=== PATIENT | female | born 1940 | race Caucasian/White ===

== ENCOUNTER 2020-11-29 17:18 | Inpatient (IN) | payer MEDICARE, MEDICAID ==
[~2020-11-29] VITALS: Ht 160 cm; Wt 87.6 kg
[2020-11-29 17:30] VITALS: BP 173/89
[2020-11-29] MEDS ORDERED: MAG HYDROX/AL HYDROX/SIMETH 30 ML ORAL.SUSP PO PRN (18:00)
[2020-11-29] MEDS ORDERED: MAGNESIUM HYDROXIDE 2,400 MG/30 ML ORAL.SUSP. PO PRN (18:00)
[2020-11-29] MEDS ORDERED: ACETAMINOPHEN 325 MG TABLET PO PRN (18:00)
[2020-11-29] MEDS ORDERED: METHYL SALICYLATE/MENTHOL TOPICAL OINTMENT 57GM TUBE. TP PRN (18:00)
[2020-11-29] MEDS ORDERED: BISA10SU4 RC (18:03)
[2020-11-29] MEDS ORDERED: CHOL500021 PO (18:03)
[2020-11-29] MEDS ORDERED: MELA10TA PO (18:03)
[2020-11-29] MEDS ORDERED: DONE10TA7 PO (18:03)
[2020-11-29] MEDS ORDERED: MEMA10TA PO (18:03)
[2020-11-29] MEDS ORDERED: MULT-121 PO (18:03)
[2020-11-29] MEDS ORDERED: LORA-254 PO (18:03)
[2020-11-29] MEDS ORDERED: ESCITALOPRAM OX10 MG PO (18:03)
[2020-11-29] MEDS ORDERED: POLY17PO5 PO (18:03)
[2020-11-29] MEDS ORDERED: FURO20TA3 PO (18:03)
[2020-11-29] MEDS ORDERED: BUSP10TA PO (18:03)
[2020-11-29] MEDS ORDERED: NA P133E2 RC (18:03)
[2020-11-29] MEDS ORDERED: POLYETHYLENE GLYCOL 3350 17 GM PACKET. PO PRN (18:15)
[2020-11-29] MEDS ORDERED: SODIUM PHOSPHATES 19/7GM 133 ML ENEMA. RC PRN (18:15)
[2020-11-29] MEDS ORDERED: BISACODYL 10 MG SUPP.RECT RC PRN (18:15)
[2020-11-29] MEDS: MEMANTINE 10 MG TABLET. PO SCH (20:20)
[2020-11-29] MEDS: MELATONIN 3 MG TABLET PO SCH (20:20)
[2020-11-29] MEDS: DONEPEZIL HCL 10 MG TABLET PO SCH (20:21)
[2020-11-29] MEDS: busPIRone 10 MG TABLET. PO SCH (20:21)
[2020-11-29] MEDS: LORazepam 1 MG TABLET PO SCH (20:21)
[2020-11-29 20:49] LABS: BASO % 1 % (0-3); EOS # 0.1 x10^3/uL (0.0-0.7); EOS % 2 % (0-3); HEMATOCRIT 32.9 % (36.0-47.0); LYMPH % 14 % (24-48); MEAN CORPUSCULAR HEMOGLOBIN 28 pg (25-35); MEAN CORPUSCULAR HGB CONC 33 g/dL (31-37); MEAN CORPUSCULAR VOLUME 83 fL (79-100); MONO # 0.7 x10^3/uL (0.0-1.1); MONO % 9 % (0-9); NEUT # 5.7 x10^3uL (1.8-7.7); NEUT % 75 % (31-73); PLATELET COUNT 207 x10^3/uL (140-400); RED BLOOD COUNT 3.98 x10^6/uL (3.50-5.40); RED CELL DISTRIBUTION WIDTH 17.3 % (11.5-14.5); WHITE BLOOD COUNT 7.6 x10^3/uL (4.0-11.0)
[2020-11-29 21:04] LABS: ALBUMIN/GLOBULIN RATIO 0.8 (1.0-1.7); CALCIUM 8.8 mg/dL (8.5-10.1); CREATININE 1.1 mg/dL (0.6-1.0); GFR 47.7; MAGNESIUM 1.9 mg/dL (1.8-2.4); POTASSIUM 3.5 mmol/L (3.5-5.1); TOTAL BILIRUBIN 0.4 mg/dL (0.2-1.0)
--- NOTE | 2020-11-29 21:58 | PDOC ---
Exam Note: Aki Note: Please also refer to the separate dictated note~for this date of service dictated separately.~Patient seen individually. Discussed the patient with Nursing staff reviewed the chart.~Reviewed interim history and current functioning. Reviewed vital signs,~Labs/ Radiology~and current medications noted below. Continue current treatment with the changes noted in the dictated addendum note Assessment: Vital Signs/I&O: Vital Signs Date Time Temp Pulse Resp B/P (MAP) Pulse Ox O2 Delivery O2 Flow Rate FiO2 11/29/20 17:30 97.6 76 20 173/89 (117) 96 Nasal Cannula 0.0 Labs: Laboratory Tests Test 11/29/20 20:23 White Blood Count 7.6 x10^3/uL (4.0-11.0) Red Blood Count 3.98 x10^6/uL (3.50-5.40) Hemoglobin 11.0 g/dL (12.0-15.5) L Hematocrit 32.9 % (36.0-47.0) L Mean Corpuscular Volume 83 fL (79-100) Mean Corpuscular Hemoglobin 28 pg (25-35) Mean Corpuscular Hemoglobin Concent 33 g/dL (31-37) Red Cell Distribution Width 17.3 % (11.5-14.5) H Platelet Count 207 x10^3/uL (140-400) Neutrophils (%) (Auto) 75 % (31-73) H Lymphocytes (%) (Auto) 14 % (24-48) L Monocytes (%) (Auto) 9 % (0-9) Eosinophils (%) (Auto) 2 % (0-3) Basophils (%) (Auto) 1 % (0-3) Neutrophils # (Auto) 5.7 x10^3uL (1.8-7.7) Lymphocytes # (Auto) 1.0 x10^3/uL (1.0-4.8) Monocytes # (Auto) 0.7 x10^3/uL (0.0-1.1) Eosinophils # (Auto) 0.1 x10^3/uL (0.0-0.7) Basophils # (Auto) 0.0 x10^3/uL (0.0-0.2) D-Dimer (Pooja) 0.56 mg/L (0.00-0.50) H Sodium Level 138 mmol/L (136-145) Potassium Level 3.5 mmol/L (3.5-5.1) Chloride Level 101 mmol/L (98-107) Carbon Dioxide Level 28 mmol/L (21-32) Anion Gap 9 (6-14) Blood Urea Nitrogen 21 mg/dL (7-20) H Creatinine 1.1 mg/dL (0.6-1.0) H Estimated GFR (Cockcroft-Gault) 47.7 BUN/Creatinine Ratio 19 (6-20) Glucose Level 194 mg/dL (70-99) H Calcium Level 8.8 mg/dL (8.5-10.1) Magnesium Level 1.9 mg/dL (1.8-2.4) Total Bilirubin 0.4 mg/dL (0.2-1.0) Aspartate Amino Transferase (AST) 13 U/L (15-37) L Alanine Aminotransferase (ALT) 15 U/L (14-59) Alkaline Phosphatase 66 U/L (46-116) Total Protein 7.0 g/dL (6.4-8.2) Albumin 3.0 g/dL (3.4-5.0) L Albumin/Globulin Ratio 0.8 (1.0-1.7) L Current Medications: Meds: Current Medications Medications (Trade) Dose Ordered Sig/Curt Route PRN Reason Start Time Stop Time Status Last Admin Dose Admin Buspirone HCl (Buspar) 10 mg TID PO 11/29/20 21:00 11/29/20 20:21 Donepezil HCl (Aricept) 10 mg QHS PO 11/29/20 21:00 11/29/20 20:21 Lorazepam (Ativan) 0.5 mg BID PO 11/29/20 21:00 11/29/20 20:21 Memantine (Namenda) 10 mg BID PO 11/29/20 21:00 11/29/20 20:20 Melatonin (Melatonin) 10.5 mg QHS PO 11/29/20 21:00 11/29/20 20:20 I have reviewed the current psychotropics carefully including drug interactions. Risk benefit ratio favors no change other than as noted in my dictated progress note. Diagnosis: Problems: (1) Major neurocognitive disorder (2) Anxiety disorder, unspecified (3) Impulse control disorder, unspecified MADHURI SHAW MD Nov 29, 2020 21:58
[2020-11-30 06:00] VITALS: BP 152/90
[2020-11-30] MEDS: busPIRone 10 MG TABLET. PO SCH ×3 (09:00→20:21)
[2020-11-30] MEDS ORDERED: CITALOPRAM 20 MG TABLET. PO SCH (09:00)
[2020-11-30] MEDS: LORazepam 1 MG TABLET PO SCH ×2 (12:33→20:22)
[2020-11-30] MEDS: MEMANTINE 10 MG TABLET. PO SCH ×2 (12:33→20:21)
[2020-11-30] MEDS: FUROSEMIDE 20 MG TABLET PO SCH (12:33)
[2020-11-30] MEDS: MULTIVITAMIN with MINERAL TABLET. PO SCH (12:33)
--- NOTE | 2020-11-30 14:05 | TX PLAN ---
Interdisciplinary Tx Plan Admission Information Nov 29, 2020 at 17:18 Legal Status (on Admission): Voluntary DPOA/Guardian Name: Lucero Marks-Cousin Contact Phone Number: (Cell-DO NOT LEAVE MESSAGE ON CELL) [phone] (Home- CAN LEAVE MESSAGE O Other Contact Name: Priya Melgar Other Contact Phone: (Cell) [phone] (Office)[phone] Verified Code Status: DNR Allergies: Coded Allergies: No Known Drug Allergies (Unverified , 11/29/20) Diagnoses Primary Diagnosis: (1) Major neurocognitive disorder (2) Anxiety disorder, unspecified (3) Impulse control disorder, unspecified Reasons for Admission: Aggressive, Agitated, Angry, Combative, Confusion/Disoriented Problem in Patient's Words: Per Lucero, pt has been angry and aggressive toward staff at her facility. Lucero reports that about 8 to 9 months ago, pt was living with a female friend, Janessa, whom she lived with for a long time. Janessa called her and reported that Sharon was able to care for herself any longer and she was mean and aggressive toward her. Lucero stated that she had never known Sharon to mean towards others, but is wondering if she has some anger that is just part of her personality, but that it was hidden well when she was younger. Additional Admission Comments: Per intake record, pt was threatening to punch staff, combative with staff, yelling out, resists care, disrobing in public, cursing, spitting at staff, and name calling. Problems Active Problems: Agitation, aggressive, confusion, angry Inactive Problems: None at this time. Pt Strengths/Limitations Ability for [place]: Poor Cognitive Functioning/Ability: Fair Communication Skills/Ability: Fair Financial Resources: Fair Insight/Judgement: Poor Intellectual Ability: Fair Physical Health: Fair Social Skills: Fair Stability in Family: Good Stability in School/Work: Good Verbal Skills: Fair Discharge Criteria Discharge Criteria: No need for close observ., Adequate arrangements @DC, Verbal commit med comply, Improved behavior, Improved mood/thought Other Discharge Comments: None noted at this time. Preliminary Discharge Plan Preliminary DC Plan: Current Living Arrange. Special Precautions Fall Risk: High Initial D/C Plan Pt plan is to return to [facility]. Identified Discharge Needs: None known at this time. Currently Utilized Resources Currently Utilized Resources/P: PCP-Dr. Thai Velazco/NANCY-Lucero Marks Facility-[facility] Referrals Community Resources: None noted at this time. Identified Problems/Hx/Goals Objectives/Short-Term Goals Short Term Goals: Control abnormal behavior, Dec. Aggression, Dec. Outbursts, Medication Stabilization, Monitor Med Effects, Promote Coping Skill Short Term Goals in Patient's: Pt to decrease aggressive/combative behaviors and be more cooperative with taking her medications and cares at her facility. Interventions/Frequency Staff Interventions/Frequency&: Psychiatry to assess pt three times per week for medication management. Nursing to assess behaivors, monitor medications, and complete 15 minute checks daily. Social work to see pt at least two times weekly to aid in return to placement. Activities to encourage pt to participate in group activities daily. 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 Education: Pt completed high school and attended all four years graduating from [employer]. Community Follow-up PCP Community Provider/Family Inpu: Pt cousin/NANCY, Lucero Marks, is aware of pt's hospitalization and is available for further information should it be needed. Treatment Plan Explained Patient/Family Coach had this treatment plan explained to him/her as indicated by the signature below and has been given the opportunity to ask questions and make suggestions: Date: Patient/Family Coach Signature: BRITTANIE BEVERLY Nov 30, 2020 14:05
[2020-11-30 17:56] VITALS: BP 142/84
[2020-11-30 20:07] LABS: THYROXINE 6.5 ug/dL (4.5-12.0)
[2020-11-30] MEDS: DONEPEZIL HCL 10 MG TABLET PO SCH (20:21)
[2020-11-30] MEDS: MELATONIN 3 MG TABLET PO SCH (20:22)
--- NOTE | 2020-11-30 22:00 | PDOC ---
Exam Note: Aki Note: Please also refer to the separate dictated note~for this date of service dictated separately.~Patient seen individually. Discussed the patient with Nursing staff reviewed the chart.~Reviewed interim history and current functioning. Reviewed vital signs,~Labs/ Radiology~and current medications noted below. Continue current treatment with the changes noted in the dictated addendum note Assessment: Vital Signs/I&O: Vital Signs Date Time Temp Pulse Resp B/P (MAP) Pulse Ox O2 Delivery O2 Flow Rate FiO2 11/30/20 17:56 98.2 66 18 142/84 (103) 94 11/29/20 17:30 Nasal Cannula 0.0 I & O 11/29/20 11/29/20 11/30/20 15:00 23:00 07:00 Intake Total 240 ml 120 ml Balance 240 ml 120 ml Labs: Laboratory Tests Test 11/30/20 08:00 Glucose (Fingerstick) 168 mg/dL (70-99) H Current Medications: Meds: Current Medications Medications (Trade) Dose Ordered Sig/Curt Route PRN Reason Start Time Stop Time Status Last Admin Dose Admin Furosemide (Lasix) 20 mg DAILY PO 11/30/20 09:00 11/30/20 12:33 Citalopram Hydrobromide (CeleXA) 20 mg DAILY PO 11/30/20 09:00 11/30/20 12:32 Multivitamins/ Calcium (Thera-M Plus) 1 tab DAILY PO 11/30/20 09:00 11/30/20 12:33 I have reviewed the current psychotropics carefully including drug interactions. Risk benefit ratio favors no change other than as noted in my dictated progress note. Diagnosis: Problems: (1) Impulse control disorder, unspecified (2) Anxiety disorder, unspecified (3) Major neurocognitive disorder MADHURI SHAW MD Nov 30, 2020 22:00
[2020-11-30 22:22] LABS: THYROID STIM HORMONE (TSH) 2.073 uIU/mL (0.358-3.740)
[2020-12-01 00:07] LABS: HEMOGLOBIN A1C 7.3 % (4.8-5.6)
--- NOTE | 2020-12-01 02:45 | CONS ---
DATE OF CONSULTATION: 11/30/2020 ATTENDING PHYSICIAN: Dr. Black. We are asked to see the patient for medical consultation. HISTORY OF PRESENT ILLNESS: The patient is an 80-year-old female from a [facility], [place], [place]. She has been threatening to punish staff, very combative, yelling out, resisting care, disrobe in public, spitting at staff and be having behavioral issues. She has profound dementia. She was referred here for further treatment and evaluation. PAST MEDICAL HISTORY: Significant for dementia, type 2 diabetes, vitamin B12 deficiency and degenerative arthritis. ALLERGIES: She has no recorded drug allergies. CURRENT MEDICATIONS: Reviewed. She was scheduled to take bisacodyl, BuSpar, cholecalciferol, Aricept, Lexapro, Lasix 20 mg daily, lorazepam, melatonin, Namenda, multivitamin, and MiraLax. SOCIAL HISTORY: She is a nonsmoker, nondrinker. FAMILY HISTORY: Unobtainable. REVIEW OF SYSTEMS: Unobtainable. She is profoundly hard of hearing. Much of the information is obtained from the chart. PHYSICAL EXAMINATION: GENERAL: When I saw her, this is a deaf, demented female. VITAL SIGNS: Showed a blood pressure 152/90, pulse is 71 and regular, temperature 97.6 degrees Fahrenheit, and oxygen saturation 96% on room air. HEENT: Head is without trauma. Pupils are reactive. Sclerae nonicteric. Oropharynx clear. No stridor. NECK: Supple. No bruits. LUNGS: Shallow respirations. CARDIOVASCULAR: Showed distant heart tones. No gallops. ABDOMEN: Soft. There is a palpable ventral hernia, does not appear incarcerated. Bowel sounds are normoactive. EXTREMITIES: Showed 2+ nonpitting edema. NEUROLOGIC: Profoundly demented. She cannot understand any commands. We could not do a formal full neurologic exam due to the patient's dementia. SKIN: Otherwise, warm and dry. PERTINENT LABORATORY DATA: Hemoglobin is 11.0 g/dL with a white count of 7600. Electrolytes within normal range. Creatinine is 1.1 mg/dL. Nonfasting blood sugar 168. Liver panel, transaminases are all within normal range. ASSESSMENT: 1. This 80-year-old female who has profound dementia with behavioral issues. 2. Essential hypertension. 3. Type 2 diabetes. 4. Degenerative arthritis. RECOMMENDATION: 1. I reviewed the patient's medication. 2. She is stable from a medical standpoint. 3. Diabetic diet as tolerated. 4. We would recommend that we continue all her meds as scheduled. Thank you again for asking us to see the patient in medical consultation. We shall gladly follow along closely during her inpatient stay. MY DR: Ruddy TID: [id number]
[2020-12-01 06:04] VITALS: BP 150/95
[2020-12-01] MEDS: NYSTATIN TOPICAL POWDER 15GM BOTTLE. TP SCH ×2 (09:00→20:57)
[2020-12-01] MEDS: MEMANTINE 10 MG TABLET. PO SCH ×2 (11:00→20:57)
[2020-12-01] MEDS: MULTIVITAMIN with MINERAL TABLET. PO SCH (11:00)
[2020-12-01] MEDS: SERTRALINE 25 MG TABLET. PO SCH (11:00)
[2020-12-01] MEDS: busPIRone 10 MG TABLET. PO SCH ×3 (11:00→20:56)
[2020-12-01] MEDS: FUROSEMIDE 20 MG TABLET PO SCH (11:01)
[2020-12-01] MEDS: QUEtiapine 25 MG TABLET. PO SCH ×3 (11:01→16:10)
[2020-12-01] MEDS: LORazepam 0.5 MG TABLET PO SCH ×2 (11:02→20:57)
[2020-12-01 15:47] LABS: BILIRUBIN,URINE NEG (NEG); CLARITY,URINE CLOUDY; COLOR,URINE YELLOW; GLUCOSE,URINE NEG (NEG)
[2020-12-01 15:48] LABS: NITRITE,URINE NEG (NEG); UROBILINOGEN,URINE 0.2 mg/dL (0.2 mg/dL)
[2020-12-01 15:51] LABS: BACTERIA,URINE FEW /HPF (0-FEW); RBC,URINE OCC /HPF (0-2); SQUAMOUS EPITHELIAL CELL,UR FEW /LPF; WBC,URINE TNTC /HPF (0-4)
[2020-12-01 15:53] VITALS: BP 149/68
[2020-12-01] MEDS: DONEPEZIL HCL 10 MG TABLET PO SCH (20:56)
[2020-12-01] MEDS: MELATONIN 3 MG TABLET PO SCH (20:56)
--- NOTE | 2020-12-01 22:15 | PDOC ---
Exam Note: Aki Note: Please also refer to the separate dictated note~for this date of service dictated separately.~Patient seen individually. Discussed the patient with Nursing staff reviewed the chart.~Reviewed interim history and current functioning. Reviewed vital signs,~Labs/ Radiology~and current medications noted below. Continue current treatment with the changes noted in the dictated addendum note Assessment: Vital Signs/I&O: Vital Signs Date Time Temp Pulse Resp B/P (MAP) Pulse Ox O2 Delivery O2 Flow Rate FiO2 12/01/20 15:53 97.8 73 18 149/68 (95) 95 Room Air 11/29/20 17:30 0.0 I & O 11/30/20 11/30/20 12/01/20 15:00 23:00 07:00 Intake Total 360 ml 100 ml Balance 360 ml 100 ml Labs: Laboratory Tests Test 12/01/20 07:55 12/01/20 15:10 Glucose (Fingerstick) 203 mg/dL (70-99) H Urine Collection Type Void Urine Color Yellow Urine Clarity Cloudy Urine pH 6.5 Urine Specific [place] >=1.030 Urine Protein Trace (NEG-TRACE) Urine Glucose (UA) Neg mg/dL (NEG) Urine Ketones (Stick) Neg mg/dL (NEG) Urine Blood Trace (NEG) Urine Nitrite Neg (NEG) Urine Bilirubin Neg (NEG) Urine Urobilinogen Dipstick 0.2 mg/dL (0.2 mg/dL) Urine Leukocyte Esterase Large (NEG) Urine RBC Occ /HPF (0-2) Urine WBC Tntc /HPF (0-4) Urine Squamous Epithelial Cells Few /LPF Urine Bacteria Few /HPF (0-FEW) Current Medications: Meds: Laboratory Tests Test 12/01/20 07:55 12/01/20 15:10 Glucose (Fingerstick) 203 mg/dL Urine Collection Type Void Urine Color Yellow Urine Clarity Cloudy Urine pH 6.5 Urine Specific [place] >=1.030 Urine Protein Trace Urine Glucose (UA) Neg mg/dL Urine Ketones (Stick) Neg mg/dL Urine Blood Trace Urine Nitrite Neg Urine Bilirubin Neg Urine Urobilinogen Dipstick 0.2 mg/dL Urine Leukocyte Esterase Large Urine RBC Occ /HPF Urine WBC Tntc /HPF Urine Squamous Epithelial Cells Few /LPF Urine Bacteria Few /HPF Current Medications Medications (Trade) Dose Ordered Sig/Curt Route PRN Reason Start Time Stop Time Status Last Admin Dose Admin Acetaminophen (Tylenol) 650 mg PRN Q6HRS PRN PO MILD PAIN / TEMP > 100.3'F 11/29/20 18:00 Multi-Ingredient Ointment (Analgesic [place]) 1 bryant PRN QID PRN TP MUSCLE PAIN 11/29/20 18:00 Al Hydroxide/Mg Hydroxide (Mylanta Plus Xs) 15 ml PRN AFTMEALHC PRN PO DYSPEPSIA 11/29/20 18:00 Magnesium Hydroxide (Milk Of Magnesia) 2,400 mg PRN QHS PRN PO CONSTIPATION 11/29/20 18:00 Bisacodyl (Dulcolax Supp) 10 mg PRN DAILY PRN RC CONSTIPATION 11/29/20 18:15 Buspirone HCl (Buspar) 10 mg TID PO 11/29/20 21:00 12/01/20 20:56 Vitamin D (Vitamin D3) 50,000 unit QWE PO 12/06/20 16:00 Donepezil HCl (Aricept) 10 mg QHS PO 11/29/20 21:00 12/01/20 20:56 Furosemide (Lasix) 20 mg DAILY PO 11/30/20 09:00 12/01/20 11:01 Lorazepam (Ativan) 0.5 mg BID PO 11/29/20 21:00 11/30/20 22:44 DC 11/30/20 20:22 Memantine (Namenda) 10 mg BID PO 11/29/20 21:00 12/01/20 20:57 Sodium Biphosphate/ Sodium Phosphate (Fleet Adult) 133 ml PRN DAILY PRN RC CONSTIPATION 11/29/20 18:15 Polyethylene Glycol (miraLAX) 17 gm PRN DAILY PRN PO CONSTIPATION 11/29/20 18:15 Citalopram Hydrobromide (CeleXA) 20 mg DAILY PO 11/30/20 09:00 11/30/20 22:44 DC 11/30/20 12:32 Melatonin (Melatonin) 10.5 mg QHS PO 11/29/20 21:00 12/01/20 20:56 Multivitamins/ Calcium (Thera-M Plus) 1 tab DAILY PO 11/30/20 09:00 12/01/20 11:00 Lorazepam (Ativan) 0.25 mg BID PO 12/01/20 09:00 12/03/20 22:00 12/01/20 20:57 Quetiapine Fumarate (SEROquel) 12.5 mg TIDWMEALS PO 12/01/20 08:00 12/01/20 16:10 Sertraline HCl (Zoloft) 25 mg DAILY PO 12/01/20 09:00 12/03/20 21:00 12/01/20 11:00 Sertraline HCl (Zoloft) 50 mg DAILY PO 12/04/20 09:00 Lorazepam (Ativan) 0.25 mg DAILY PO 12/04/20 09:00 12/06/20 21:00 Nystatin (Nystop) 1 bryant BID TP 12/01/20 09:00 12/01/20 20:57 Current Medications Medications (Trade) Dose Ordered Sig/Curt Route PRN Reason Start Time Stop Time Status Last Admin Dose Admin Lorazepam (Ativan) 0.25 mg BID PO 12/01/20 09:00 12/03/20 22:00 12/01/20 20:57 Quetiapine Fumarate (SEROquel) 12.5 mg TIDWMEALS PO 12/01/20 08:00 12/01/20 16:10 Sertraline HCl (Zoloft) 25 mg DAILY PO 12/01/20 09:00 12/03/20 21:00 12/01/20 11:00 Nystatin (Nystop) 1 bryant BID TP 12/01/20 09:00 12/01/20 20:57 I have reviewed the current psychotropics carefully including drug interactions. Risk benefit ratio favors no change other than as noted in my dictated progress note. Diagnosis: Problems: (1) Impulse control disorder, unspecified (2) Anxiety disorder, unspecified (3) Major neurocognitive disorder MADHURI SHAW MD Dec 01, 2020 22:15
[2020-12-02 06:31] VITALS: BP 150/86
--- NOTE | 2020-12-02 08:11 | PDOC ---
Exam Note: Aki Note: This note is a late entry for 11/30/2020 covers elements not covered in my initial note. Subjective: The patient was reviewed in the morning of 11/30/2020 for a treatment team meeting with Candie Sinclair, Carmita Nichols and Erika (psychiatric social worker), Tamar, activity therapy and Katya STEWART, discussed and reviewed the chart. The patient slept 7 hours previous night. Overall the patient remains confused but doing a little better. In the evening discussed with Margy STEWART. She has been somewhat more anxious, combative with ADLs. She slept through lunch. Review of Systems: No CV, , pulmonary, eye system symptoms on review. Mental Status Exam: The patient is oriented to herself. When I questioned her she told me she was 60 years old and had to go to work, quite confused. Insight and judgment, recent and remote memory, attention and concentration, fund of knowledge is poor consistent with his diagnoses. Laboratory Data: Reviewed. Impression: Major neurocognitive disorder Alzheimer vascular with delusion, depression, behavioral disturbance. Impulse control disorder unspecified. Anxiety disorder unspecified. Plan: We will taper and stop the Ativan reducing to 0.25 mg twice a day for 3 days and 0.25 mg once a day for 3 days and stop. Start Seroquel 12.5 mg 9 a.m., 1 p.m. and 5 p.m. Change Celexa to Zoloft 25 mg a day for 3 days and 50 mg a day thereafter. Rest unchanged for now. Assessment: Vital Signs/I&O: Vital Signs Date Time Temp Pulse Resp B/P (MAP) Pulse Ox O2 Delivery O2 Flow Rate FiO2 12/02/20 06:31 97.4 68 19 150/86 (107) 95 12/01/20 15:53 Room Air 11/29/20 17:30 0.0 I & O 12/01/20 12/01/20 12/02/20 15:00 23:00 07:00 Intake Total 480 ml 360 ml Balance 480 ml 360 ml Labs: Laboratory Tests Test 12/01/20 15:10 12/02/20 07:33 Urine Collection Type Void Urine Color Yellow Urine Clarity Cloudy Urine pH 6.5 Urine Specific [place] >=1.030 Urine Protein Trace (NEG-TRACE) Urine Glucose (UA) Neg mg/dL (NEG) Urine Ketones (Stick) Neg mg/dL (NEG) Urine Blood Trace (NEG) Urine Nitrite Neg (NEG) Urine Bilirubin Neg (NEG) Urine Urobilinogen Dipstick 0.2 mg/dL (0.2 mg/dL) Urine Leukocyte Esterase Large (NEG) Urine RBC Occ /HPF (0-2) Urine WBC Tntc /HPF (0-4) Urine Squamous Epithelial Cells Few /LPF Urine Bacteria Few /HPF (0-FEW) Glucose (Fingerstick) 158 mg/dL (70-99) H Current Medications: Meds: Laboratory Tests Test 12/01/20 15:10 12/02/20 07:33 Urine Collection Type Void Urine Color Yellow Urine Clarity Cloudy Urine pH 6.5 Urine Specific [place] >=1.030 Urine Protein Trace Urine Glucose (UA) Neg mg/dL Urine Ketones (Stick) Neg mg/dL Urine Blood Trace Urine Nitrite Neg Urine Bilirubin Neg Urine Urobilinogen Dipstick 0.2 mg/dL Urine Leukocyte Esterase Large Urine RBC Occ /HPF Urine WBC Tntc /HPF Urine Squamous Epithelial Cells Few /LPF Urine Bacteria Few /HPF Glucose (Fingerstick) 158 mg/dL Current Medications Medications (Trade) Dose Ordered Sig/Curt Route PRN Reason Start Time Stop Time Status Last Admin Dose Admin Acetaminophen (Tylenol) 650 mg PRN Q6HRS PRN PO MILD PAIN / TEMP > 100.3'F 11/29/20 18:00 Multi-Ingredient Ointment (Analgesic [place]) 1 bryant PRN QID PRN TP MUSCLE PAIN 11/29/20 18:00 Al Hydroxide/Mg Hydroxide (Mylanta Plus Xs) 15 ml PRN AFTMEALHC PRN PO DYSPEPSIA 11/29/20 18:00 Magnesium Hydroxide (Milk Of Magnesia) 2,400 mg PRN QHS PRN PO CONSTIPATION 11/29/20 18:00 Bisacodyl (Dulcolax Supp) 10 mg PRN DAILY PRN RC CONSTIPATION 11/29/20 18:15 Buspirone HCl (Buspar) 10 mg TID PO 11/29/20 21:00 12/01/20 20:56 Vitamin D (Vitamin D3) 50,000 unit QWE PO 12/06/20 16:00 Donepezil HCl (Aricept) 10 mg QHS PO 11/29/20 21:00 12/01/20 20:56 Furosemide (Lasix) 20 mg DAILY PO 11/30/20 09:00 12/01/20 11:01 Lorazepam (Ativan) 0.5 mg BID PO 11/29/20 21:00 11/30/20 22:44 DC 11/30/20 20:22 Memantine (Namenda) 10 mg BID PO 11/29/20 21:00 12/01/20 20:57 Sodium Biphosphate/ Sodium Phosphate (Fleet Adult) 133 ml PRN DAILY PRN RC CONSTIPATION 11/29/20 18:15 Polyethylene Glycol (miraLAX) 17 gm PRN DAILY PRN PO CONSTIPATION 11/29/20 18:15 Citalopram Hydrobromide (CeleXA) 20 mg DAILY PO 11/30/20 09:00 11/30/20 22:44 DC 11/30/20 12:32 Melatonin (Melatonin) 10.5 mg QHS PO 11/29/20 21:00 12/01/20 20:56 Multivitamins/ Calcium (Thera-M Plus) 1 tab DAILY PO 11/30/20 09:00 12/01/20 11:00 Lorazepam (Ativan) 0.25 mg BID PO 12/01/20 09:00 12/03/20 22:00 12/01/20 20:57 Quetiapine Fumarate (SEROquel) 12.5 mg TIDWMEALS PO 12/01/20 08:00 12/01/20 16:10 Sertraline HCl (Zoloft) 25 mg DAILY PO 12/01/20 09:00 12/03/20 21:00 12/01/20 11:00 Sertraline HCl (Zoloft) 50 mg DAILY PO 12/04/20 09:00 Lorazepam (Ativan) 0.25 mg DAILY PO 12/04/20 09:00 12/06/20 21:00 Nystatin (Nystop) 1 bryant BID TP 12/01/20 09:00 12/01/20 20:57 Current Medications Medications (Trade) Dose Ordered Sig/Curt Route PRN Reason Start Time Stop Time Status Last Admin Dose Admin Lorazepam (Ativan) 0.25 mg BID PO 12/01/20 09:00 12/03/20 22:00 12/01/20 20:57 Sertraline HCl (Zoloft) 25 mg DAILY PO 12/01/20 09:00 12/03/20 21:00 12/01/20 11:00 Nystatin (Nystop) 1 bryant BID TP 12/01/20 09:00 12/01/20 20:57 I have reviewed the current psychotropics carefully including drug interactions. Risk benefit ratio favors no change other than as noted in my dictated progress note. 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
[2020-12-02] MEDS: MULTIVITAMIN with MINERAL TABLET. PO SCH (08:12)
[2020-12-02] MEDS: busPIRone 10 MG TABLET. PO SCH ×3 (08:12→19:58)
[2020-12-02] MEDS: QUEtiapine 25 MG TABLET. PO SCH ×2 (08:12→12:48)
[2020-12-02] MEDS: FUROSEMIDE 20 MG TABLET PO SCH (08:13)
[2020-12-02] MEDS: SERTRALINE 25 MG TABLET. PO SCH (08:13)
[2020-12-02] MEDS: MEMANTINE 10 MG TABLET. PO SCH ×2 (08:13→19:58)
[2020-12-02] MEDS: LORazepam 0.5 MG TABLET PO SCH ×2 (08:13→19:58)
[2020-12-02] MEDS: NYSTATIN TOPICAL POWDER 15GM BOTTLE. TP SCH ×2 (08:14→19:59)
[2020-12-02 15:48] VITALS: BP 142/88
[2020-12-02] MEDS: QUEtiapine 50 MG TABLET. PO SCH (17:28)
[2020-12-02] MEDS: MELATONIN 3 MG TABLET PO SCH (19:58)
[2020-12-02] MEDS: DONEPEZIL HCL 10 MG TABLET PO SCH (19:58)
--- NOTE | 2020-12-02 21:52 | PDOC ---
Exam Note: Aki Note: Please also refer to the separate dictated note~for this date of service dictated separately.~Patient seen individually. Discussed the patient with Nursing staff reviewed the chart.~Reviewed interim history and current functioning. Reviewed vital signs,~Labs/ Radiology~and current medications noted below. Continue current treatment with the changes noted in the dictated addendum note Assessment: Vital Signs/I&O: Vital Signs Date Time Temp Pulse Resp B/P (MAP) Pulse Ox O2 Delivery O2 Flow Rate FiO2 12/02/20 15:48 97.6 68 18 142/88 (106) 95 Room Air 11/29/20 17:30 0.0 I & O 12/01/20 12/01/20 12/02/20 15:00 23:00 07:00 Intake Total 480 ml 360 ml Balance 480 ml 360 ml Labs: Laboratory Tests Test 12/02/20 07:33 Glucose (Fingerstick) 158 mg/dL (70-99) H Current Medications: Meds: Laboratory Tests Test 12/02/20 07:33 Glucose (Fingerstick) 158 mg/dL Current Medications Medications (Trade) Dose Ordered Sig/Curt Route PRN Reason Start Time Stop Time Status Last Admin Dose Admin Acetaminophen (Tylenol) 650 mg PRN Q6HRS PRN PO MILD PAIN / TEMP > 100.3'F 11/29/20 18:00 Multi-Ingredient Ointment (Analgesic [place]) 1 bryant PRN QID PRN TP MUSCLE PAIN 11/29/20 18:00 Al Hydroxide/Mg Hydroxide (Mylanta Plus Xs) 15 ml PRN AFTMEALHC PRN PO DYSPEPSIA 11/29/20 18:00 Magnesium Hydroxide (Milk Of Magnesia) 2,400 mg PRN QHS PRN PO 1ST CHOICE CONSTIPATION 11/29/20 18:00 Bisacodyl (Dulcolax Supp) 10 mg PRN DAILY PRN RC 2ND CHOICE CONSTIPATION 11/29/20 18:15 Buspirone HCl (Buspar) 10 mg TID PO 11/29/20 21:00 12/02/20 19:58 Vitamin D (Vitamin D3) 50,000 unit QWE PO 12/06/20 16:00 Donepezil HCl (Aricept) 10 mg QHS PO 11/29/20 21:00 12/02/20 19:58 Furosemide (Lasix) 20 mg DAILY PO 11/30/20 09:00 12/02/20 08:13 Lorazepam (Ativan) 0.5 mg BID PO 11/29/20 21:00 11/30/20 22:44 DC 11/30/20 20:22 Memantine (Namenda) 10 mg BID PO 11/29/20 21:00 12/02/20 19:58 Sodium Biphosphate/ Sodium Phosphate (Fleet Adult) 133 ml PRN DAILY PRN RC 3RD CHOICE CONSTIPATION 11/29/20 18:15 Polyethylene Glycol (miraLAX) 17 gm PRN DAILY PRN PO CONSTIPATION 11/29/20 18:15 Citalopram Hydrobromide (CeleXA) 20 mg DAILY PO 11/30/20 09:00 11/30/20 22:44 DC 11/30/20 12:32 Melatonin (Melatonin) 10.5 mg QHS PO 11/29/20 21:00 12/02/20 19:58 Multivitamins/ Calcium (Thera-M Plus) 1 tab DAILY PO 11/30/20 09:00 12/02/20 08:12 Lorazepam (Ativan) 0.25 mg BID PO 12/01/20 09:00 12/03/20 22:00 12/02/20 19:58 Quetiapine Fumarate (SEROquel) 12.5 mg TIDWMEALS PO 12/01/20 08:00 12/02/20 16:12 DC 12/02/20 12:48 Sertraline HCl (Zoloft) 25 mg DAILY PO 12/01/20 09:00 12/02/20 16:00 DC 12/02/20 08:13 Sertraline HCl (Zoloft) 50 mg DAILY PO 12/04/20 09:00 12/02/20 16:00 DC Lorazepam (Ativan) 0.25 mg DAILY PO 12/04/20 09:00 12/06/20 21:00 Nystatin (Nystop) 1 bryant BID TP 12/01/20 09:00 12/02/20 19:59 Sertraline HCl (Zoloft) 50 mg DAILY PO 12/03/20 09:00 12/02/20 16:10 DC Sertraline HCl (Zoloft) 25 mg DAILY PO 12/03/20 09:00 5/2/21 09:30 Sertraline HCl (Zoloft) 50 mg DAILY PO 12/04/20 09:00 Quetiapine Fumarate (SEROquel) 25 mg 0900,1200 PO 12/03/20 09:00 Quetiapine Fumarate (SEROquel) 50 mg 1700 PO 12/02/20 17:00 12/02/20 17:28 Current Medications Medications (Trade) Dose Ordered Sig/Curt Route PRN Reason Start Time Stop Time Status Last Admin Dose Admin Quetiapine Fumarate (SEROquel) 50 mg 1700 PO 12/02/20 17:00 12/02/20 17:28 I have reviewed the current psychotropics carefully including drug interactions. Risk benefit ratio favors no change other than as noted in my dictated progress note. Diagnosis: Problems: (1) Impulse control disorder, unspecified (2) Anxiety disorder, unspecified (3) Major neurocognitive disorder (4) Dementia, vascular, with depression (5) Dementia, vascular, with delusions (6) Dementia in Alzheimer's disease with depression (7) Dementia in Alzheimer's disease with delusions (8) Dementia of the Alzheimer's type with early onset with behavioral distu MADHURI Villegas MD December 02, 2020 21:52
--- NOTE | 2020-12-02 23:20 | HP ---
ADMIT DATE: 11/29/2020 PSYCHIATRIC ADMISSION HISTORY/EVALUATION This note was originally dictated on 11/29/2020 but I am unable to obtain it in the electronic medical record system. IDENTIFYING DATA: The patient is an 83-year-old female referred to us from [facility] by her primary care physician on account of worsening confusion, being combative at staff, demanding to go to the bank in the middle of the night. She was spitting, hitting and cursing at staff. She is having marked insomnia, increasing incontinence. She was removing her pants in brief at the nurses' station at the facility, stealing food from other residents. She was asking other residents why they do not love her. She was demanding staff give her the food and demanding staff to tell her how much they love her. The patient's behaviors were deemed unmanageable at the facility, disruptive to the entire environment, had failed outpatient psychiatric interventions resulting in this referral. I met with the patient in the evening of 11/29/2020 soon after she arrived on the unit. CHIEF COMPLAINT: " No". The patient is extremely confused, oriented just to herself. HISTORY OF PRESENT ILLNESS: Patient has a history of major neurocognitive disorder, Alzheimer, vascular type with depression, delusion behavioral disturbance. She has been residing at the above facility for some time, but recently behaviors have been extremely unmanageable, disruptive and she appeared psychotic as noted above. She has had some sleep disturbance, appetite vacillation. No active suicidal or homicidal ideation. No clear history of bipolar disorder. PAST PSYCHIATRIC HISTORY: As above. PAST MEDICAL HISTORY: History of breast cancer, arthritis, hypertension, osteoporosis, B12 deficiency anemia, right knee pain, bilateral hearing loss, generalized weakness, muscle fatigue, type 2 diabetes mellitus, cognitive communication deficit, history of falls. ACCU-CHEKS: Daily. ALLERGIES: Negative. CODE STATUS: DNR. DIET: Diabetic. MEDICATIONS:. Whole. Ambulates with a walker. Current psychotropics Ativan 0.5 mg b.i.d. and we will taper this gradually due to paradoxical disinhibition from benzodiazepines. BuSpar 10 mg t.i.d., Aricept 10 mg at bedtime, melatonin 10 mg at bedtime, Namenda 10 mg b.i.d., trazodone 50 mg b.i.d. FAMILY HISTORY: Not contributory. SOCIAL HISTORY: No history of alcohol, drug abuse, physical, sexual or elder abuse. She is not known to be a perpetrator. REACTION TO HOSPITALIZATION: The patient is oblivious of this. ASSETS: Supportive family and stable living at the [facility]. REVIEW OF SYSTEMS: No CV, , pulmonary,,, ENT system symptoms on review. Reliability poor. MENTAL STATUS EXAMINATION: The patient is oriented to herself. Insight, judgment, recent and remote memory, attention, concentration, fund of knowledge poor consistent with her diagnosis. IMPRESSION: Major neurocognitive disorder, Alzheimer, vascular with delusion, depression, behavioral disturbance, anxiety disorder, unspecified; impulse control disorder, unspecified. Rest as above. PLAN: Admit to the Geropsychiatry Unit at [facility]. I will see the patient daily individually from a psychiatric standpoint. Medical followup with Dr. Couch/Dr. Interiano. Continue patient on her current psychotropics, taper and stop the Ativan due to paradoxical disinhibition. Consider adding Seroquel as a mood stabilizer. We will ultimately gradually taper and stop the trazodone, rule out UTI and treat as clinically indicated. Consider Depakote as a mood stabilizer depending on how she does with the prior interventions. Estimated length of stay 10 to 12 days. DISPOSITION: Plans back to [facility] when stable. BRYANNA LONGORIA: Arun TID: [id number]
--- NOTE | 2020-12-03 05:58 | EKG ---
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
[2020-12-03 06:18] VITALS: BP 148/92
[2020-12-03] MEDS: MULTIVITAMIN with MINERAL TABLET. PO SCH (07:47)
[2020-12-03] MEDS: FUROSEMIDE 20 MG TABLET PO SCH (07:47)
[2020-12-03] MEDS: QUEtiapine 25 MG TABLET. PO SCH ×2 (07:47→12:24)
[2020-12-03] MEDS: busPIRone 10 MG TABLET. PO SCH ×3 (07:47→20:15)
[2020-12-03] MEDS: MEMANTINE 10 MG TABLET. PO SCH ×2 (07:47→20:16)
[2020-12-03] MEDS: LORazepam 0.5 MG TABLET PO SCH ×2 (07:48→20:16)
[2020-12-03] MEDS: NYSTATIN TOPICAL POWDER 15GM BOTTLE. TP SCH ×2 (07:49→20:16)
[2020-12-03] MEDS ORDERED: SERTRALINE 25 MG TABLET. PO SCH ×2 (09:00)
[2020-12-03 16:13] VITALS: BP 156/86
[2020-12-03] MEDS: QUEtiapine 50 MG TABLET. PO SCH (16:20)
[2020-12-03] MEDS: DONEPEZIL HCL 10 MG TABLET PO SCH (20:15)
[2020-12-03] MEDS: MELATONIN 3 MG TABLET PO SCH (20:16)
--- NOTE | 2020-12-03 21:56 | PDOC ---
Exam Note: Aki Note: Please also refer to the separate dictated note~for this date of service dictated separately.~Patient seen individually. Discussed the patient with Nursing staff reviewed the chart.~Reviewed interim history and current functioning. Reviewed vital signs,~Labs/ Radiology~and current medications noted below. Continue current treatment with the changes noted in the dictated addendum note Assessment: Vital Signs/I&O: Vital Signs Date Time Temp Pulse Resp B/P (MAP) Pulse Ox O2 Delivery O2 Flow Rate FiO2 12/03/20 16:13 97.8 71 20 156/86 (109) 93 12/03/20 06:18 Room Air 11/29/20 17:30 0.0 I & O 12/02/20 12/02/20 12/03/20 15:00 23:00 07:00 Intake Total 700 ml 480 ml Balance 700 ml 480 ml Labs: Laboratory Tests Test 12/03/20 07:51 Glucose (Fingerstick) 163 mg/dL (70-99) H Current Medications: Meds: Laboratory Tests Test 12/03/20 07:51 Glucose (Fingerstick) 163 mg/dL Current Medications Medications (Trade) Dose Ordered Sig/Curt Route PRN Reason Start Time Stop Time Status Last Admin Dose Admin Acetaminophen (Tylenol) 650 mg PRN Q6HRS PRN PO MILD PAIN / TEMP > 100.3'F 11/29/20 18:00 Multi-Ingredient Ointment (Analgesic [place]) 1 bryant PRN QID PRN TP MUSCLE PAIN 11/29/20 18:00 Al Hydroxide/Mg Hydroxide (Mylanta Plus Xs) 15 ml PRN AFTMEALHC PRN PO DYSPEPSIA 11/29/20 18:00 Magnesium Hydroxide (Milk Of Magnesia) 2,400 mg PRN QHS PRN PO 1ST CHOICE CONSTIPATION 11/29/20 18:00 Bisacodyl (Dulcolax Supp) 10 mg PRN DAILY PRN RC 2ND CHOICE CONSTIPATION 11/29/20 18:15 Buspirone HCl (Buspar) 10 mg TID PO 11/29/20 21:00 12/03/20 20:15 Vitamin D (Vitamin D3) 50,000 unit QWE PO 12/06/20 16:00 Donepezil HCl (Aricept) 10 mg QHS PO 11/29/20 21:00 12/03/20 20:15 Furosemide (Lasix) 20 mg DAILY PO 11/30/20 09:00 12/03/20 07:47 Lorazepam (Ativan) 0.5 mg BID PO 11/29/20 21:00 11/30/20 22:44 DC 11/30/20 20:22 Memantine (Namenda) 10 mg BID PO 11/29/20 21:00 12/03/20 20:16 Sodium Biphosphate/ Sodium Phosphate (Fleet Adult) 133 ml PRN DAILY PRN RC 3RD CHOICE CONSTIPATION 11/29/20 18:15 Polyethylene Glycol (miraLAX) 17 gm PRN DAILY PRN PO CONSTIPATION 11/29/20 18:15 Citalopram Hydrobromide (CeleXA) 20 mg DAILY PO 11/30/20 09:00 11/30/20 22:44 DC 11/30/20 12:32 Melatonin (Melatonin) 10.5 mg QHS PO 11/29/20 21:00 12/03/20 20:16 Multivitamins/ Calcium (Thera-M Plus) 1 tab DAILY PO 11/30/20 09:00 12/03/20 07:47 Lorazepam (Ativan) 0.25 mg BID PO 12/01/20 09:00 12/03/20 22:00 12/03/20 20:16 Quetiapine Fumarate (SEROquel) 12.5 mg TIDWMEALS PO 12/01/20 08:00 12/02/20 16:12 DC 12/02/20 12:48 Sertraline HCl (Zoloft) 25 mg DAILY PO 12/01/20 09:00 12/02/20 16:00 DC 12/02/20 08:13 Sertraline HCl (Zoloft) 50 mg DAILY PO 12/04/20 09:00 12/02/20 16:00 DC Lorazepam (Ativan) 0.25 mg DAILY PO 12/04/20 09:00 12/06/20 21:00 Nystatin (Nystop) 1 bryant BID TP 12/01/20 09:00 12/03/20 07:49 Sertraline HCl (Zoloft) 50 mg DAILY PO 12/03/20 09:00 12/02/20 16:10 DC Sertraline HCl (Zoloft) 25 mg DAILY PO 12/03/20 09:00 12/03/20 09:30 DC 12/03/20 07:46 Sertraline HCl (Zoloft) 50 mg DAILY PO 12/07/20 09:00 Quetiapine Fumarate (SEROquel) 25 mg 0900,1200 PO 12/03/20 09:00 12/03/20 12:24 Quetiapine Fumarate (SEROquel) 50 mg 1700 PO 12/02/20 17:00 12/03/20 16:20 Sertraline HCl (Zoloft) 25 mg DAILY PO 12/04/20 09:00 12/06/20 21:00 Sertraline HCl (Zoloft) 25 mg DAILY PO 12/07/20 09:00 Cancel Current Medications Medications (Trade) Dose Ordered Sig/Curt Route PRN Reason Start Time Stop Time Status Last Admin Dose Admin Sertraline HCl (Zoloft) 25 mg DAILY PO 12/03/20 09:00 12/03/20 09:30 DC 12/03/20 07:46 Quetiapine Fumarate (SEROquel) 25 mg 0900,1200 PO 12/03/20 09:00 12/03/20 12:24 I have reviewed the current psychotropics carefully including drug interactions. Risk benefit ratio favors no change other than as noted in my dictated progress note. Diagnosis: Problems: (1) Impulse control disorder, unspecified (2) Anxiety disorder, unspecified (3) Major neurocognitive disorder (4) Dementia, vascular, with depression (5) Dementia, vascular, with delusions (6) Dementia in Alzheimer's disease with depression (7) Dementia in Alzheimer's disease with delusions (8) Dementia of the Alzheimer's type with early onset with behavioral disturbance MADHURI SHAW MD December 03, 2020 21:56
[2020-12-04 06:02] VITALS: BP 161/98
--- NOTE | 2020-12-04 06:50 | PDOC ---
Exam Note: Aki Note: This note is a late entry for 12/01/2020 covers elements not covered in my initial note. Subjective: The patient was seen individually in the evening of 12/01/2020 with Katya STEWART, discussed and reviewed the chart. The patient slept 5-3/4 hours previous night. Previous night the patient was angry, yelling, punching at staff, aggressive, disruptive, refused a straight catheter. During the day on 12/01, she is more verbally aggressive but not physically aggressive. She has been somewhat obsessive. UA has reflex to culture and this could be contributing to some of her presentation. Review of Systems: No CV, , pulmonary, eye system symptoms on review. Mental Status Exam: The patient is oriented to herself. I met with her in her room. Insight and judgment, recent and remote memory, attention and concentrati on, fund of knowledge is poor consistent with his diagnoses. Laboratory Data: Reviewed. Impression: Major neurocognitive disorder Alzheimer vascular with delusion, depression, behavioral disturbance. Impulse control disorder unspecified. Anxiety disorder unspecified. Plan: No change from initial note. Assessment: Vital Signs/I&O: Vital Signs Date Time Temp Pulse Resp B/P (MAP) Pulse Ox O2 Delivery O2 Flow Rate FiO2 12/04/20 06:02 97.2 73 17 161/98 (119) 95 12/03/20 06:18 Room Air 11/29/20 17:30 0.0 I & O 12/03/20 12/03/20 12/04/20 15:00 23:00 07:00 Intake Total 720 ml 480 ml Balance 720 ml 480 ml Labs: Laboratory Tests Test 12/03/20 07:51 Glucose (Fingerstick) 163 mg/dL (70-99) H Current Medications: Meds: Laboratory Tests Test 12/03/20 07:51 Glucose (Fingerstick) 163 mg/dL Current Medications Medications (Trade) Dose Ordered Sig/Curt Route PRN Reason Start Time Stop Time Status Last Admin Dose Admin Acetaminophen (Tylenol) 650 mg PRN Q6HRS PRN PO MILD PAIN / TEMP > 100.3'F 11/29/20 18:00 Multi-Ingredient Ointment (Analgesic [place]) 1 bryant PRN QID PRN TP MUSCLE PAIN 11/29/20 18:00 Al Hydroxide/Mg Hydroxide (Mylanta Plus Xs) 15 ml PRN AFTMEALHC PRN PO DYSPEPSIA 11/29/20 18:00 Magnesium Hydroxide (Milk Of Magnesia) 2,400 mg PRN QHS PRN PO 1ST CHOICE CONSTIPATION 11/29/20 18:00 Bisacodyl (Dulcolax Supp) 10 mg PRN DAILY PRN RC 2ND CHOICE CONSTIPATION 11/29/20 18:15 Buspirone HCl (Buspar) 10 mg TID PO 11/29/20 21:00 12/03/20 20:15 Vitamin D (Vitamin D3) 50,000 unit QWE PO 12/06/20 16:00 Donepezil HCl (Aricept) 10 mg QHS PO 11/29/20 21:00 12/03/20 20:15 Furosemide (Lasix) 20 mg DAILY PO 11/30/20 09:00 12/03/20 07:47 Lorazepam (Ativan) 0.5 mg BID PO 11/29/20 21:00 11/30/20 22:44 DC 11/30/20 20:22 Memantine (Namenda) 10 mg BID PO 11/29/20 21:00 12/03/20 20:16 Sodium Biphosphate/ Sodium Phosphate (Fleet Adult) 133 ml PRN DAILY PRN RC 3RD CHOICE CONSTIPATION 11/29/20 18:15 Polyethylene Glycol (miraLAX) 17 gm PRN DAILY PRN PO CONSTIPATION 11/29/20 18:15 Citalopram Hydrobromide (CeleXA) 20 mg DAILY PO 11/30/20 09:00 11/30/20 22:44 DC 11/30/20 12:32 Melatonin (Melatonin) 10.5 mg QHS PO 11/29/20 21:00 12/03/20 20:16 Multivitamins/ Calcium (Thera-M Plus) 1 tab DAILY PO 11/30/20 09:00 12/03/20 07:47 Lorazepam (Ativan) 0.25 mg BID PO 12/01/20 09:00 12/03/20 22:00 DC 12/03/20 20:16 Quetiapine Fumarate (SEROquel) 12.5 mg TIDWMEALS PO 12/01/20 08:00 12/02/20 16:12 DC 12/02/20 12:48 Sertraline HCl (Zoloft) 25 mg DAILY PO 12/01/20 09:00 12/02/20 16:00 DC 12/02/20 08:13 Sertraline HCl (Zoloft) 50 mg DAILY PO 12/04/20 09:00 12/02/20 16:00 DC Lorazepam (Ativan) 0.25 mg DAILY PO 12/04/20 09:00 12/06/20 21:00 Nystatin (Nystop) 1 bryant BID TP 12/01/20 09:00 12/03/20 07:49 Sertraline HCl (Zoloft) 50 mg DAILY PO 12/03/20 09:00 12/02/20 16:10 DC Sertraline HCl (Zoloft) 25 mg DAILY PO 12/03/20 09:00 12/03/20 09:30 DC 12/03/20 07:46 Sertraline HCl (Zoloft) 50 mg DAILY PO 12/07/20 09:00 Quetiapine Fumarate (SEROquel) 25 mg 0900,1200 PO 12/03/20 09:00 12/03/20 12:24 Quetiapine Fumarate (SEROquel) 50 mg 1700 PO 12/02/20 17:00 12/03/20 16:20 Sertraline HCl (Zoloft) 25 mg DAILY PO 12/04/20 09:00 12/06/20 21:00 Sertraline HCl (Zoloft) 25 mg DAILY PO 12/07/20 09:00 Cancel Current Medications Medications (Trade) Dose Ordered Sig/Curt Route PRN Reason Start Time Stop Time Status Last Admin Dose Admin Sertraline HCl (Zoloft) 25 mg DAILY PO 12/03/20 09:00 12/03/20 09:30 DC 12/03/20 07:46 Quetiapine Fumarate (SEROquel) 25 mg 0900,1200 PO 12/03/20 09:00 12/03/20 12:24 I have reviewed the current psychotropics carefully including drug interactions. Risk benefit ratio favors no change other than as noted in my dictated progress note. Diagnosis: Problems: (1) Impulse control disorder, unspecified (2) Anxiety disorder, unspecified (3) Major neurocognitive disorder (4) Dementia, vascular, with depression (5) Dementia, vascular, with delusions (6) Dementia in Alzheimer's disease with depression (7) Dementia in Alzheimer's disease with delusions (8) Dementia of the Alzheimer's type with early onset with behavioral disturbance MADHURI SHAW MD December 04, 2020 06:50
--- NOTE | 2020-12-04 07:24 | PDOC ---
Exam Note: Aki Note: This note is a late entry for 12/02/2020 covers elements not covered in my initial note. Subjective: The patient was seen individually in the evening of 12/02/2020 with Félix STEWART, discussed and reviewed the chart. The patient slept 10 hours previous night. She has been demanding, confused, repeating herself, compliant with medications. She had defecated in her pants and was agitated when staff attempted to assist her and clean her. I met with her in her room. She was lying in bed. Review of Systems: No CV, , pulmonary, eye system symptoms on review. Mental Status Exam: The patient is oriented to herself. Insight and judgment, recent and remote memory, attention and concentration, fund of knowledge is poor consistent with her diagnoses. Laboratory Data: Reviewed. Impression: Major neurocognitive disorder Alzheimer vascular with delusion, depression, behavioral disturbance. Impulse control disorder unspecified. Anxiety disorder unspecified. Plan: Increase a.m. Seroquel from 12.5 mg to 25 mg. Rest of the psychotropics unchanged. Await UA C&S results and treat as indicated. Assessment: Vital Signs/I&O: Vital Signs Date Time Temp Pulse Resp B/P (MAP) Pulse Ox O2 Delivery O2 Flow Rate FiO2 12/04/20 06:02 97.2 73 17 161/98 (119) 95 12/03/20 06:18 Room Air 11/29/20 17:30 0.0 I & O 12/03/20 12/03/20 12/04/20 15:00 23:00 07:00 Intake Total 720 ml 480 ml Balance 720 ml 480 ml Labs: Laboratory Tests Test 12/03/20 07:51 Glucose (Fingerstick) 163 mg/dL (70-99) H Current Medications: Meds: Laboratory Tests Test 12/03/20 07:51 Glucose (Fingerstick) 163 mg/dL Current Medications Medications (Trade) Dose Ordered Sig/Curt Route PRN Reason Start Time Stop Time Status Last Admin Dose Admin Acetaminophen (Tylenol) 650 mg PRN Q6HRS PRN PO MILD PAIN / TEMP > 100.3'F 11/29/20 18:00 Multi-Ingredient Ointment (Analgesic [place]) 1 bryant PRN QID PRN TP MUSCLE PAIN 11/29/20 18:00 Al Hydroxide/Mg Hydroxide (Mylanta Plus Xs) 15 ml PRN AFTMEALHC PRN PO DYSPEPSIA 11/29/20 18:00 Magnesium Hydroxide (Milk Of Magnesia) 2,400 mg PRN QHS PRN PO 1ST CHOICE CONSTIPATION 11/29/20 18:00 Bisacodyl (Dulcolax Supp) 10 mg PRN DAILY PRN RC 2ND CHOICE CONSTIPATION 11/29/20 18:15 Buspirone HCl (Buspar) 10 mg TID PO 11/29/20 21:00 12/03/20 20:15 Vitamin D (Vitamin D3) 50,000 unit QWE PO 12/06/20 16:00 Donepezil HCl (Aricept) 10 mg QHS PO 11/29/20 21:00 12/03/20 20:15 Furosemide (Lasix) 20 mg DAILY PO 11/30/20 09:00 12/03/20 07:47 Lorazepam (Ativan) 0.5 mg BID PO 11/29/20 21:00 11/30/20 22:44 DC 11/30/20 20:22 Memantine (Namenda) 10 mg BID PO 11/29/20 21:00 12/03/20 20:16 Sodium Biphosphate/ Sodium Phosphate (Fleet Adult) 133 ml PRN DAILY PRN RC 3RD CHOICE CONSTIPATION 11/29/20 18:15 Polyethylene Glycol (miraLAX) 17 gm PRN DAILY PRN PO CONSTIPATION 11/29/20 18:15 Citalopram Hydrobromide (CeleXA) 20 mg DAILY PO 11/30/20 09:00 11/30/20 22:44 DC 11/30/20 12:32 Melatonin (Melatonin) 10.5 mg QHS PO 11/29/20 21:00 12/03/20 20:16 Multivitamins/ Calcium (Thera-M Plus) 1 tab DAILY PO 11/30/20 09:00 12/03/20 07:47 Lorazepam (Ativan) 0.25 mg BID PO 12/01/20 09:00 12/03/20 22:00 DC 12/03/20 20:16 Quetiapine Fumarate (SEROquel) 12.5 mg TIDWMEALS PO 12/01/20 08:00 12/02/20 16:12 DC 12/02/20 12:48 Sertraline HCl (Zoloft) 25 mg DAILY PO 12/01/20 09:00 12/02/20 16:00 DC 12/02/20 08:13 Sertraline HCl (Zoloft) 50 mg DAILY PO 12/04/20 09:00 12/02/20 16:00 DC Lorazepam (Ativan) 0.25 mg DAILY PO 12/04/20 09:00 12/06/20 21:00 Nystatin (Nystop) 1 bryant BID TP 12/01/20 09:00 12/03/20 07:49 Sertraline HCl (Zoloft) 50 mg DAILY PO 12/03/20 09:00 12/02/20 16:10 DC Sertraline HCl (Zoloft) 25 mg DAILY PO 12/03/20 09:00 12/03/20 09:30 DC 12/03/20 07:46 Sertraline HCl (Zoloft) 50 mg DAILY PO 12/07/20 09:00 Quetiapine Fumarate (SEROquel) 25 mg 0900,1200 PO 12/03/20 09:00 12/03/20 12:24 Quetiapine Fumarate (SEROquel) 50 mg 1700 PO 12/02/20 17:00 12/03/20 16:20 Sertraline HCl (Zoloft) 25 mg DAILY PO 12/04/20 09:00 12/06/20 21:00 Sertraline HCl (Zoloft) 25 mg DAILY PO 12/07/20 09:00 Cancel Current Medications Medications (Trade) Dose Ordered Sig/Curt Route PRN Reason Start Time Stop Time Status Last Admin Dose Admin Sertraline HCl (Zoloft) 25 mg DAILY PO 12/03/20 09:00 12/03/20 09:30 DC 12/03/20 07:46 Quetiapine Fumarate (SEROquel) 25 mg 0900,1200 PO 12/03/20 09:00 12/03/20 12:24 I have reviewed the current psychotropics carefully including drug interactions. Risk benefit ratio favors no change other than as noted in my dictated progress note. Diagnosis: Problems: (1) Impulse control disorder, unspecified (2) Anxiety disorder, unspecified (3) Major neurocognitive disorder (4) Dementia, vascular, with depression (5) Dementia, vascular, with delusions (6) Dementia in Alzheimer's disease with depression (7) Dementia in Alzheimer's disease with delusions (8) Dementia of the Alzheimer's type with early onset with behavioral di sturbance MADHURI SHAW MD December 04, 2020 07:24
--- NOTE | 2020-12-04 07:48 | PDOC ---
Exam Note: Aki Note: This note is a late entry for 12/03/2020 covers elements not covered in my initial note. Subjective: The patient was seen individually in the evening of 12/03/2020 with Katya STEWART, discussed and reviewed the chart. The patient slept 7-1/4 hours previous night. She is compliant with her medications, somewhat irritable at times. Short-term memory is poor. She remains somewhat combative during toileting and is repetitive. I met with her in her room. Review of Systems: No CV, , pulmonary, eye system symptoms on review. Reliability poor. Ambulation impaired with walker. Mental Status Exam: The patient is oriented to herself. Insight and judgment, recent and remote memory, attention and concentration, fund of knowledge is poor consistent with her diagnoses. Laboratory Data: Reviewed. Impression: Major neurocognitive disorder Alzheimer vascular with delusion, depression, behavioral disturbance. Impulse control disorder unspecified. Anxiety disorder unspecified. Plan: Start Zoloft 25 mg a day for 3 days, then increase 50 mg a day. Continue rest of the psychotropics unchanged. Assessment: Vital Signs/I&O: Vital Signs Date Time Temp Pulse Resp B/P (MAP) Pulse Ox O2 Delivery O2 Flow Rate FiO2 12/04/20 06:02 97.2 73 17 161/98 (119) 95 12/03/20 06:18 Room Air 11/29/20 17:30 0.0 I & O 12/03/20 12/03/20 12/04/20 15:00 23:00 07:00 Intake Total 720 ml 480 ml Balance 720 ml 480 ml Labs: Laboratory Tests Test 12/03/20 07:51 Glucose (Fingerstick) 163 mg/dL (70-99) H Current Medications: Meds: Laboratory Tests Test 12/03/20 07:51 Glucose (Fingerstick) 163 mg/dL Current Medications Medications (Trade) Dose Ordered Sig/Curt Route PRN Reason Start Time Stop Time Status Last Admin Dose Admin Acetaminophen (Tylenol) 650 mg PRN Q6HRS PRN PO MILD PAIN / TEMP > 100.3'F 11/29/20 18:00 Multi-Ingredient Ointment (Analgesic [place]) 1 bryant PRN QID PRN TP MUSCLE PAIN 11/29/20 18:00 Al Hydroxide/Mg Hydroxide (Mylanta Plus Xs) 15 ml PRN AFTMEALHC PRN PO DYSPEPSIA 11/29/20 18:00 Magnesium Hydroxide (Milk Of Magnesia) 2,400 mg PRN QHS PRN PO 1ST CHOICE CONSTIPATION 11/29/20 18:00 Bisacodyl (Dulcolax Supp) 10 mg PRN DAILY PRN RC 2ND CHOICE CONSTIPATION 11/29/20 18:15 Buspirone HCl (Buspar) 10 mg TID PO 11/29/20 21:00 12/03/20 20:15 Vitamin D (Vitamin D3) 50,000 unit QWE PO 12/06/20 16:00 Donepezil HCl (Aricept) 10 mg QHS PO 11/29/20 21:00 12/03/20 20:15 Furosemide (Lasix) 20 mg DAILY PO 11/30/20 09:00 12/03/20 07:47 Lorazepam (Ativan) 0.5 mg BID PO 11/29/20 21:00 11/30/20 22:44 DC 11/30/20 20:22 Memantine (Namenda) 10 mg BID PO 11/29/20 21:00 12/03/20 20:16 Sodium Biphosphate/ Sodium Phosphate (Fleet Adult) 133 ml PRN DAILY PRN RC 3RD CHOICE CONSTIPATION 11/29/20 18:15 Polyethylene Glycol (miraLAX) 17 gm PRN DAILY PRN PO CONSTIPATION 11/29/20 18:15 Citalopram Hydrobromide (CeleXA) 20 mg DAILY PO 11/30/20 09:00 11/30/20 22:44 DC 11/30/20 12:32 Melatonin (Melatonin) 10.5 mg QHS PO 11/29/20 21:00 12/03/20 20:16 Multivitamins/ Calcium (Thera-M Plus) 1 tab DAILY PO 11/30/20 09:00 12/03/20 07:47 Lorazepam (Ativan) 0.25 mg BID PO 12/01/20 09:00 12/03/20 22:00 DC 12/03/20 20:16 Quetiapine Fumarate (SEROquel) 12.5 mg TIDWMEALS PO 12/01/20 08:00 12/02/20 16:12 DC 12/02/20 12:48 Sertraline HCl (Zoloft) 25 mg DAILY PO 12/01/20 09:00 5/1/21 16:00 DC 12/02/20 08:13 Sertraline HCl (Zoloft) 50 mg DAILY PO 12/04/20 09:00 12/02/20 16:00 DC Lorazepam (Ativan) 0.25 mg DAILY PO 12/04/20 09:00 12/06/20 21:00 Nystatin (Nystop) 1 bryant BID TP 12/01/20 09:00 12/03/20 07:49 Sertraline HCl (Zoloft) 50 mg DAILY PO 12/03/20 09:00 12/02/20 16:10 DC Sertraline HCl (Zoloft) 25 mg DAILY PO 12/03/20 09:00 12/03/20 09:30 DC 12/03/20 07:46 Sertraline HCl (Zoloft) 50 mg DAILY PO 12/07/20 09:00 Quetiapine Fumarate (SEROquel) 25 mg 0900,1200 PO 12/03/20 09:00 12/03/20 12:24 Quetiapine Fumarate (SEROquel) 50 mg 1700 PO 12/02/20 17:00 12/03/20 16:20 Sertraline HCl (Zoloft) 25 mg DAILY PO 12/04/20 09:00 12/06/20 21:00 Sertraline HCl (Zoloft) 25 mg DAILY PO 12/07/20 09:00 Cancel Current Medications Medications (Trade) Dose Ordered Sig/Curt Route PRN Reason Start Time Stop Time Status Last Admin Dose Admin Sertraline HCl (Zoloft) 25 mg DAILY PO 12/03/20 09:00 12/03/20 09:30 DC 12/03/20 07:46 Quetiapine Fumarate (SEROquel) 25 mg 0900,1200 PO 12/03/20 09:00 12/03/20 12:24 I have reviewed the current psychotropics carefully including drug interactions. Risk benefit ratio favors no change other than as noted in my dictated progress note. Diagnosis: Problems: (1) Impulse control disorder, unspecified (2) Anxiety disorder, unspecified (3) Major neurocognitive disorder (4) Dementia, vascular, with depression (5) Dementia, vascular, with delusions (6) Dementia in Alzheimer's disease with depression (7) Dementia in Alzheimer's disease with delusions (8) Dementia of the Alzheimer's type with early onset with behavioral distu rbMAHDURI Sr MD December 04, 2020 07:48
[2020-12-04] MEDS: QUEtiapine 25 MG TABLET. PO SCH ×2 (08:52→12:29)
[2020-12-04] MEDS: MULTIVITAMIN with MINERAL TABLET. PO SCH (08:52)
[2020-12-04] MEDS: FUROSEMIDE 20 MG TABLET PO SCH (08:52)
[2020-12-04] MEDS: SERTRALINE 25 MG TABLET. PO SCH (08:52)
[2020-12-04] MEDS: NYSTATIN TOPICAL POWDER 15GM BOTTLE. TP SCH ×2 (08:52→20:15)
[2020-12-04] MEDS: MEMANTINE 10 MG TABLET. PO SCH ×2 (08:52→20:06)
[2020-12-04] MEDS: LORazepam 0.5 MG TABLET PO SCH (08:52)
[2020-12-04] MEDS: busPIRone 10 MG TABLET. PO SCH ×3 (08:52→20:06)
[2020-12-04] MEDS ORDERED: SERTRALINE 25 MG TABLET. PO SCH (09:00)
[2020-12-04 09:27] LABS: BASO % 1 % (0-3); EOS # 0.2 x10^3/uL (0.0-0.7); EOS % 2 % (0-3); HEMATOCRIT 33.8 % (36.0-47.0); HEMOGLOBIN 11.3 g/dL (12.0-15.5); LYMPH % 14 % (24-48); MEAN CORPUSCULAR HEMOGLOBIN 28 pg (25-35); MEAN CORPUSCULAR HGB CONC 34 g/dL (31-37); MEAN CORPUSCULAR VOLUME 84 fL (79-100); MONO # 0.6 x10^3/uL (0.0-1.1); MONO % 9 % (0-9); NEUT # 5.2 x10^3uL (1.8-7.7); NEUT % 74 % (31-73); PLATELET COUNT 197 x10^3/uL (140-400); RED BLOOD COUNT 4.03 x10^6/uL (3.50-5.40); RED CELL DISTRIBUTION WIDTH 16.8 % (11.5-14.5)
[2020-12-04 09:35] LABS: ALBUMIN 2.7 g/dL (3.4-5.0); ALBUMIN/GLOBULIN RATIO 0.7 (1.0-1.7); CALCIUM 8.7 mg/dL (8.5-10.1); CREATININE 0.8 mg/dL (0.6-1.0); GFR 68.8; POTASSIUM 3.8 mmol/L (3.5-5.1); TOTAL BILIRUBIN 0.7 mg/dL (0.2-1.0); TOTAL PROTEIN 6.6 g/dL (6.4-8.2)
[2020-12-04 15:46] VITALS: BP 152/88
[2020-12-04] MEDS: QUEtiapine 50 MG TABLET. PO SCH (17:10)
[2020-12-04] MEDS: DONEPEZIL HCL 10 MG TABLET PO SCH (20:06)
[2020-12-04] MEDS: MELATONIN 3 MG TABLET PO SCH (20:06)
--- NOTE | 2020-12-04 21:53 | PDOC ---
Exam Note: Aki Note: Please also refer to the separate dictated note~for this date of service dictated separately.~Patient seen individually. Discussed the patient with Nursing staff reviewed the chart.~Reviewed interim history and current functioning. Reviewed vital signs,~Labs/ Radiology~and current medications noted below. Continue current treatment with the changes noted in the dictated addendum note Assessment: Vital Signs/I&O: Vital Signs Date Time Temp Pulse Resp B/P (MAP) Pulse Ox O2 Delivery O2 Flow Rate FiO2 12/04/20 15:46 98.0 64 18 152/88 (109) 94 12/03/20 06:18 Room Air 11/29/20 17:30 0.0 I & O 12/03/20 12/03/20 12/04/20 15:00 23:00 07:00 Intake Total 720 ml 480 ml Balance 720 ml 480 ml Labs: Laboratory Tests Test 12/04/20 08:38 12/04/20 09:05 Glucose (Fingerstick) 155 mg/dL (70-99) H White Blood Count 7.0 x10^3/uL (4.0-11.0) Red Blood Count 4.03 x10^6/uL (3.50-5.40) Hemoglobin 11.3 g/dL (12.0-15.5) L Hematocrit 33.8 % (36.0-47.0) L Mean Corpuscular Volume 84 fL (79-100) Mean Corpuscular Hemoglobin 28 pg (25-35) Mean Corpuscular Hemoglobin Concent 34 g/dL (31-37) Red Cell Distribution Width 16.8 % (11.5-14.5) H Platelet Count 197 x10^3/uL (140-400) Neutrophils (%) (Auto) 74 % (31-73) H Lymphocytes (%) (Auto) 14 % (24-48) L Monocytes (%) (Auto) 9 % (0-9) Eosinophils (%) (Auto) 2 % (0-3) Basophils (%) (Auto) 1 % (0-3) Neutrophils # (Auto) 5.2 x10^3uL (1.8-7.7) Lymphocytes # (Auto) 1.0 x10^3/uL (1.0-4.8) Monocytes # (Auto) 0.6 x10^3/uL (0.0-1.1) Eosinophils # (Auto) 0.2 x10^3/uL (0.0-0.7) Basophils # (Auto) 0.0 x10^3/uL (0.0-0.2) Sodium Level 139 mmol/L (136-145) Potassium Level 3.8 mmol/L (3.5-5.1) Chloride Level 103 mmol/L (98-107) Carbon Dioxide Level 28 mmol/L (21-32) Anion Gap 8 (6-14) Blood Urea Nitrogen 15 mg/dL (7-20) Creatinine 0.8 mg/dL (0.6-1.0) Estimated GFR (Cockcroft-Gault) 68.8 BUN/Creatinine Ratio 19 (6-20) Glucose Level 162 mg/dL (70-99) H Calcium Level 8.7 mg/dL (8.5-10.1) Total Bilirubin 0.7 mg/dL (0.2-1.0) Aspartate Amino Transferase (AST) 13 U/L (15-37) L Alanine Aminotransferase (ALT) 12 U/L (14-59) L Alkaline Phosphatase 60 U/L (46-116) Total Protein 6.6 g/dL (6.4-8.2) Albumin 2.7 g/dL (3.4-5.0) L Albumin/Globulin Ratio 0.7 (1.0-1.7) L Current Medications: Meds: Laboratory Tests Test 12/04/20 08:38 12/04/20 09:05 Glucose (Fingerstick) 155 mg/dL White Blood Count 7.0 x10^3/uL Red Blood Count 4.03 x10^6/uL Hemoglobin 11.3 g/dL Hematocrit 33.8 % Mean Corpuscular Volume 84 fL Mean Corpuscular Hemoglobin 28 pg Mean Corpuscular Hemoglobin Concent 34 g/dL Red Cell Distribution Width 16.8 % Platelet Count 197 x10^3/uL Neutrophils (%) (Auto) 74 % Lymphocytes (%) (Auto) 14 % Monocytes (%) (Auto) 9 % Eosinophils (%) (Auto) 2 % Basophils (%) (Auto) 1 % Neutrophils # (Auto) 5.2 x10^3uL Lymphocytes # (Auto) 1.0 x10^3/uL Monocytes # (Auto) 0.6 x10^3/uL Eosinophils # (Auto) 0.2 x10^3/uL Basophils # (Auto) 0.0 x10^3/uL Sodium Level 139 mmol/L Potassium Level 3.8 mmol/L Chloride Level 103 mmol/L Carbon Dioxide Level 28 mmol/L Anion Gap 8 Blood Urea Nitrogen 15 mg/dL Creatinine 0.8 mg/dL Estimated GFR (Cockcroft-Gault) 68.8 BUN/Creatinine Ratio 19 Glucose Level 162 mg/dL Calcium Level 8.7 mg/dL Total Bilirubin 0.7 mg/dL Aspartate Amino Transf (AST/SGOT) 13 U/L Alanine Aminotransferase (ALT/SGPT) 12 U/L Alkaline Phosphatase 60 U/L Total Protein 6.6 g/dL Albumin 2.7 g/dL Albumin/Globulin Ratio 0.7 Current Medications Medications (Trade) Dose Ordered Sig/Curt Route PRN Reason Start Time Stop Time Status Last Admin Dose Admin Acetaminophen (Tylenol) 650 mg PRN Q6HRS PRN PO MILD PAIN / TEMP > 100.3'F 11/29/20 18:00 Multi-Ingredient Ointment (Analgesic [place]) 1 bryant PRN QID PRN TP MUSCLE PAIN 11/29/20 18:00 Al Hydroxide/Mg Hydroxide (Mylanta Plus Xs) 15 ml PRN AFTMEALHC PRN PO DYSPEPSIA 11/29/20 18:00 Magnesium Hydroxide (Milk Of Magnesia) 2,400 mg PRN QHS PRN PO 1ST CHOICE CONSTIPATION 11/29/20 18:00 Bisacodyl (Dulcolax Supp) 10 mg PRN DAILY PRN RC 2ND CHOICE CONSTIPATION 11/29/20 18:15 Buspirone HCl (Buspar) 10 mg TID PO 11/29/20 21:00 12/04/20 20:06 Vitamin D (Vitamin D3) 50,000 unit QWE PO 12/06/20 16:00 Donepezil HCl (Aricept) 10 mg QHS PO 11/29/20 21:00 12/04/20 20:06 Furosemide (Lasix) 20 mg DAILY PO 11/30/20 09:00 12/04/20 08:52 Lorazepam (Ativan) 0.5 mg BID PO 11/29/20 21:00 11/30/20 22:44 DC 11/30/20 20:22 Memantine (Namenda) 10 mg BID PO 11/29/20 21:00 12/04/20 20:06 Sodium Biphosphate/ Sodium Phosphate (Fleet Adult) 133 ml PRN DAILY PRN RC 3RD CHOICE CONSTIPATION 11/29/20 18:15 Polyethylene Glycol (miraLAX) 17 gm PRN DAILY PRN PO CONSTIPATION 11/29/20 18:15 Citalopram Hydrobromide (CeleXA) 20 mg DAILY PO 11/30/20 09:00 11/30/20 22:44 DC 11/30/20 12:32 Melatonin (Melatonin) 10.5 mg QHS PO 11/29/20 21:00 12/04/20 20:06 Multivitamins/ Calcium (Thera-M Plus) 1 tab DAILY PO 11/30/20 09:00 12/04/20 08:52 Lorazepam (Ativan) 0.25 mg BID PO 12/01/20 09:00 12/03/20 22:00 DC 12/03/20 20:16 Quetiapine Fumarate (SEROquel) 12.5 mg TIDWMEALS PO 12/01/20 08:00 12/02/20 16:12 DC 12/02/20 12:48 Sertraline HCl (Zoloft) 25 mg DAILY PO 12/01/20 09:00 12/02/20 16:00 DC 12/02/20 08:13 Sertraline HCl (Zoloft) 50 mg DAILY PO 12/04/20 09:00 12/02/20 16:00 DC Lorazepam (Ativan) 0.25 mg DAILY PO 12/04/20 09:00 12/06/20 21:00 12/04/20 08:52 Nystatin (Nystop) 1 bryant BID TP 12/01/20 09:00 12/04/20 20:15 Sertraline HCl (Zoloft) 50 mg DAILY PO 12/03/20 09:00 12/02/20 16:10 DC Sertraline HCl (Zoloft) 25 mg DAILY PO 12/03/20 09:00 12/03/20 09:30 DC 12/03/20 07:46 Sertraline HCl (Zoloft) 50 mg DAILY PO 12/07/20 09:00 Quetiapine Fumarate (SEROquel) 25 mg 0900,1200 PO 12/03/20 09:00 12/04/20 12:29 Quetiapine Fumarate (SEROquel) 50 mg 1700 PO 12/02/20 17:00 12/04/20 17:10 Sertraline HCl (Zoloft) 25 mg DAILY PO 12/04/20 09:00 12/06/20 21:00 12/04/20 08:52 Sertraline HCl (Zoloft) 25 mg DAILY PO 12/07/20 09:00 Cancel Current Medications Medications (Trade) Dose Ordered Sig/Curt Route PRN Reason Start Time Stop Time Status Last Admin Dose Admin Lorazepam (Ativan) 0.25 mg DAILY PO 12/04/20 09:00 12/06/20 21:00 12/04/20 08:52 Sertraline HCl (Zoloft) 25 mg DAILY PO 12/04/20 09:00 12/06/20 21:00 12/04/20 08:52 I have reviewed the current psychotropics carefully including drug interactions. Risk benefit ratio favors no change other than as noted in my dictated progress note. Diagnosis: Problems: (1) Impulse control disorder, unspecified (2) Anxiety disorder, unspecified (3) Major neurocognitive disorder (4) Dementia, vascular, with depression (5) Dementia, vascular, with delusions (6) Dementia in Alzheimer's disease with depression (7) Dementia in Alzheimer's disease with delusions (8) Dementia of the Alzheimer's type with early onset with behavioral disturbance MADHURI SHAW MD December 04, 2020 21:53
[2020-12-05 04:11] VITALS: BP 150/88
[2020-12-05] MEDS: SERTRALINE 25 MG TABLET. PO SCH (11:22)
[2020-12-05] MEDS: FUROSEMIDE 20 MG TABLET PO SCH (11:22)
[2020-12-05] MEDS: MULTIVITAMIN with MINERAL TABLET. PO SCH (11:22)
[2020-12-05] MEDS: busPIRone 10 MG TABLET. PO SCH ×3 (11:22→20:19)
[2020-12-05] MEDS: LORazepam 0.5 MG TABLET PO SCH (11:22)
[2020-12-05] MEDS: QUEtiapine 25 MG TABLET. PO SCH ×2 (11:23→13:02)
[2020-12-05] MEDS: MEMANTINE 10 MG TABLET. PO SCH ×2 (11:23→20:19)
[2020-12-05] MEDS: NYSTATIN TOPICAL POWDER 15GM BOTTLE. TP SCH ×2 (13:03→20:20)
[2020-12-05 15:27] VITALS: BP 126/82
[2020-12-05] MEDS: QUEtiapine 50 MG TABLET. PO SCH (17:17)
[2020-12-05] MEDS: DONEPEZIL HCL 10 MG TABLET PO SCH (20:19)
[2020-12-05] MEDS: MELATONIN 3 MG TABLET PO SCH (20:20)
[2020-12-05 21:24] LABS: BILIRUBIN,URINE NEG (NEG); CLARITY,URINE HAZY; COLOR,URINE STRAW; GLUCOSE,URINE NEG (NEG); NITRITE,URINE NEG (NEG); UROBILINOGEN,URINE 0.2 mg/dL (0.2 mg/dL)
[2020-12-05 21:25] LABS: BACTERIA,URINE FEW /HPF (0-FEW); SQUAMOUS EPITHELIAL CELL,UR MOD /LPF
--- NOTE | 2020-12-05 22:43 | PDOC ---
Exam Note: Aki Note: Please also refer to the separate dictated note~for this date of service dictated separately.~Patient seen individually. Discussed the patient with Nursing staff reviewed the chart.~Reviewed interim history and current functioning. Reviewed vital signs,~Labs/ Radiology~and current medications noted below. Continue current treatment with the changes noted in the dictated addendum note Assessment: Vital Signs/I&O: Vital Signs Date Time Temp Pulse Resp B/P (MAP) Pulse Ox O2 Delivery O2 Flow Rate FiO2 12/05/20 15:27 97.9 65 16 126/82 (97) 92 12/03/20 06:18 Room Air 11/29/20 17:30 0.0 I & O 12/04/20 12/04/20 12/05/20 15:00 23:00 07:00 Intake Total 360 ml 240 ml Balance 360 ml 240 ml Labs: Laboratory Tests Test 12/05/20 07:40 12/05/20 20:00 Glucose (Fingerstick) 148 mg/dL (70-99) H Urine Collection Type Unknown Urine Color Straw Urine Clarity Hazy Urine pH 6.5 Urine Specific [place] 1.015 Urine Protein Neg (NEG-TRACE) Urine Glucose (UA) Neg mg/dL (NEG) Urine Ketones (Stick) Neg mg/dL (NEG) Urine Blood Small (NEG) Urine Nitrite Neg (NEG) Urine Bilirubin Neg (NEG) Urine Urobilinogen Dipstick 0.2 mg/dL (0.2 mg/dL) Urine Leukocyte Esterase Small (NEG) Urine RBC 3-5 /HPF (0-2) Urine WBC 5-10 /HPF (0-4) Urine Squamous Epithelial Cells Mod /LPF Urine Bacteria Few /HPF (0-FEW) Current Medications: Meds: Laboratory Tests Test 12/05/20 07:40 12/05/20 20:00 Glucose (Fingerstick) 148 mg/dL Urine Collection Type Unknown Urine Color Straw Urine Clarity Hazy Urine pH 6.5 Urine Specific [place] 1.015 Urine Protein Neg Urine Glucose (UA) Neg mg/dL Urine Ketones (Stick) Neg mg/dL Urine Blood Small Urine Nitrite Neg Urine Bilirubin Neg Urine Urobilinogen Dipstick 0.2 mg/dL Urine Leukocyte Esterase Small Urine RBC 3-5 /HPF Urine WBC 5-10 /HPF Urine Squamous Epithelial Cells Mod /LPF Urine Bacteria Few /HPF Current Medications Medications (Trade) Dose Ordered Sig/Curt Route PRN Reason Start Time Stop Time Status Last Admin Dose Admin Acetaminophen (Tylenol) 650 mg PRN Q6HRS PRN PO MILD PAIN / TEMP > 100.3'F 11/29/20 18:00 Multi-Ingredient Ointment (Analgesic [place]) 1 bryant PRN QID PRN TP MUSCLE PAIN 11/29/20 18:00 Al Hydroxide/Mg Hydroxide (Mylanta Plus Xs) 15 ml PRN AFTMEALHC PRN PO DYSPEPSIA 11/29/20 18:00 Magnesium Hydroxide (Milk Of Magnesia) 2,400 mg PRN QHS PRN PO 1ST CHOICE CONSTIPATION 11/29/20 18:00 Bisacodyl (Dulcolax Supp) 10 mg PRN DAILY PRN RC 2ND CHOICE CONSTIPATION 11/29/20 18:15 Buspirone HCl (Buspar) 10 mg TID PO 11/29/20 21:00 12/05/20 20:19 Vitamin D (Vitamin D3) 50,000 unit QWE PO 12/06/20 16:00 Donepezil HCl (Aricept) 10 mg QHS PO 11/29/20 21:00 12/05/20 20:19 Furosemide (Lasix) 20 mg DAILY PO 11/30/20 09:00 12/05/20 11:22 Lorazepam (Ativan) 0.5 mg BID PO 11/29/20 21:00 11/30/20 22:44 DC 11/30/20 20:22 Memantine (Namenda) 10 mg BID PO 11/29/20 21:00 12/05/20 20:19 Sodium Biphosphate/ Sodium Phosphate (Fleet Adult) 133 ml PRN DAILY PRN RC 3RD CHOICE CONSTIPATION 11/29/20 18:15 Polyethylene Glycol (miraLAX) 17 gm PRN DAILY PRN PO CONSTIPATION 11/29/20 18:15 Citalopram Hydrobromide (CeleXA) 20 mg DAILY PO 11/30/20 09:00 11/30/20 22:44 DC 11/30/20 12:32 Melatonin (Melatonin) 10.5 mg QHS PO 11/29/20 21:00 12/05/20 20:20 Multivitamins/ Calcium (Thera-M Plus) 1 tab DAILY PO 11/30/20 09:00 12/05/20 11:22 Lorazepam (Ativan) 0.25 mg BID PO 12/01/20 09:00 12/03/20 22:00 DC 12/03/20 20:16 Quetiapine Fumarate (SEROquel) 12.5 mg TIDWMEALS PO 12/01/20 08:00 12/02/20 16:12 DC 12/02/20 12:48 Sertraline HCl (Zoloft) 25 mg DAILY PO 12/01/20 09:00 12/02/20 16:00 DC 12/02/20 08:13 Sertraline HCl (Zoloft) 50 mg DAILY PO 12/04/20 09:00 12/02/20 16:00 DC Lorazepam (Ativan) 0.25 mg DAILY PO 12/04/20 09:00 12/06/20 21:00 12/05/20 11:22 Nystatin (Nystop) 1 bryant BID TP 12/01/20 09:00 12/05/20 20:20 Sertraline HCl (Zoloft) 50 mg DAILY PO 12/03/20 09:00 12/02/20 16:10 DC Sertraline HCl (Zoloft) 25 mg DAILY PO 12/03/20 09:00 12/03/20 09:30 DC 12/03/20 07:46 Sertraline HCl (Zoloft) 50 mg DAILY PO 12/07/20 09:00 Quetiapine Fumarate (SEROquel) 25 mg 0900,1200 PO 12/03/20 09:00 12/05/20 13:02 Quetiapine Fumarate (SEROquel) 50 mg 1700 PO 12/02/20 17:00 12/05/20 17:17 Sertraline HCl (Zoloft) 25 mg DAILY PO 12/04/20 09:00 12/06/20 21:00 12/05/20 11:22 Sertraline HCl (Zoloft) 25 mg DAILY PO 12/07/20 09:00 Cancel I have reviewed the current psychotropics carefully including drug interactions. Risk benefit ratio favors no change other than as noted in my dictated progress note. Diagnosis: Problems: (1) Impulse control disorder, unspecified (2) Anxiety disorder, unspecified (3) Major neurocognitive disorder (4) Dementia, vascular, with depression (5) Dementia, vascular, with delusions (6) Dementia in Alzheimer's disease with depression (7) Dementia in Alzheimer's disease with delusions (8) Dementia of the Alzheimer's type with early onset with behavioral disturbance MADHURI SHAW MD December 05, 2020 22:43
[2020-12-06 06:19] VITALS: BP 170/100
--- NOTE | 2020-12-06 07:50 | PDOC ---
Exam Note: Aki Note: This note is a late entry for 12/04/2020 covers elements not covered in my initial note. Subjective: The patient was seen individually in the evening of 12/04/2020 with Félix STEWART, discussed and reviewed the chart. The patient slept 8-3/4 hours previous night. She has been overall confused but cooperative on the unit. I met with her in her room in the evening along with Margy STEWART. She is extremely hard of hearing and this makes her appear more confused than she is. She is confused about the dates and times. 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 She did say she was a nurse and whenever the staff approach her perhaps if they present themselves being a nurse she is more likely to be cooperative with them. Review of Systems: No CV, , pulmonary, eye system symptoms on review. Reliability poor. Ambulation impaired with walker. She is extremely hard of hearing. Mental Status Exam: The patient is oriented to herself. Insight and judgment, recent and remote memory, attention and concentration, fund of knowledge is poor consistent with her diagnoses. Initially during the visit she was somewhat suspicious, abrupt but later in the visit, pleasant, smiling. We will attempt hearing amplifiers to help with her marked hearing impairment. Laboratory Data: Reviewed. Impression: Major neurocognitive disorder Alzheimer vascular with delusion, depression, behavioral disturbance. Impulse control disorder unspecified. Anxiety disorder unspecified. Plan: Continue psychotropics from initial note. Reviewed risk-benefit ratio and drug interactions, favor no change for now. Assessment: Vital Signs/I&O: Vital Signs Date Time Temp Pulse Resp B/P (MAP) Pulse Ox O2 Delivery O2 Flow Rate FiO2 12/06/20 06:19 97.7 68 16 170/100 (123) 96 12/03/20 06:18 Room Air I & O 12/05/20 12/05/20 12/06/20 15:00 23:00 07:00 Intake Total 960 ml 480 ml Balance 960 ml 480 ml Labs: Laboratory Tests Test 12/05/20 20:00 12/06/20 07:32 Urine Collection Type Unknown Urine Color Straw Urine Clarity Hazy Urine pH 6.5 Urine Specific [place] 1.015 Urine Protein Neg (NEG-TRACE) Urine Glucose (UA) Neg mg/dL (NEG) Urine Ketones (Stick) Neg mg/dL (NEG) Urine Blood Small (NEG) Urine Nitrite Neg (NEG) Urine Bilirubin Neg (NEG) Urine Urobilinogen Dipstick 0.2 mg/dL (0.2 mg/dL) Urine Leukocyte Esterase Small (NEG) Urine RBC 3-5 /HPF (0-2) Urine WBC 5-10 /HPF (0-4) Urine Squamous Epithelial Cells Mod /LPF Urine Bacteria Few /HPF (0-FEW) Glucose (Fingerstick) 160 mg/dL (70-99) H Current Medications: Meds: Laboratory Tests Test 12/05/20 20:00 12/06/20 07:32 Urine Collection Type Unknown Urine Color Straw Urine Clarity Hazy Urine pH 6.5 Urine Specific [place] 1.015 Urine Protein Neg Urine Glucose (UA) Neg mg/dL Urine Ketones (Stick) Neg mg/dL Urine Blood Small Urine Nitrite Neg Urine Bilirubin Neg Urine Urobilinogen Dipstick 0.2 mg/dL Urine Leukocyte Esterase Small Urine RBC 3-5 /HPF Urine WBC 5-10 /HPF Urine Squamous Epithelial Cells Mod /LPF Urine Bacteria Few /HPF Glucose (Fingerstick) 160 mg/dL Current Medications Medications (Trade) Dose Ordered Sig/Curt Route PRN Reason Start Time Stop Time Status Last Admin Dose Admin Acetaminophen (Tylenol) 650 mg PRN Q6HRS PRN PO MILD PAIN / TEMP > 100.3'F 11/29/20 18:00 Multi-Ingredient Ointment (Analgesic [place]) 1 bryant PRN QID PRN TP MUSCLE PAIN 11/29/20 18:00 Al Hydroxide/Mg Hydroxide (Mylanta Plus Xs) 15 ml PRN AFTMEALHC PRN PO DYSPEPSIA 11/29/20 18:00 Magnesium Hydroxide (Milk Of Magnesia) 2,400 mg PRN QHS PRN PO 1ST CHOICE CONSTIPATION 11/29/20 18:00 Bisacodyl (Dulcolax Supp) 10 mg PRN DAILY PRN RC 2ND CHOICE CONSTIPATION 11/29/20 18:15 Buspirone HCl (Buspar) 10 mg TID PO 11/29/20 21:00 12/05/20 20:19 Vitamin D (Vitamin D3) 50,000 unit QWE PO 12/06/20 16:00 Donepezil HCl (Aricept) 10 mg QHS PO 11/29/20 21:00 12/05/20 20:19 Furosemide (Lasix) 20 mg DAILY PO 11/30/20 09:00 12/05/20 11:22 Lorazepam (Ativan) 0.5 mg BID PO 11/29/20 21:00 11/30/20 22:44 DC 11/30/20 20:22 Memantine (Namenda) 10 mg BID PO 11/29/20 21:00 12/05/20 20:19 Sodium Biphosphate/ Sodium Phosphate (Fleet Adult) 133 ml PRN DAILY PRN RC 3RD CHOICE CONSTIPATION 11/29/20 18:15 Polyethylene Glycol (miraLAX) 17 gm PRN DAILY PRN PO CONSTIPATION 11/29/20 18:15 Citalopram Hydrobromide (CeleXA) 20 mg DAILY PO 11/30/20 09:00 11/30/20 22:44 DC 11/30/20 12:32 Melatonin (Melatonin) 10.5 mg QHS PO 11/29/20 21:00 12/05/20 20:20 Multivitamins/ Calcium (Thera-M Plus) 1 tab DAILY PO 11/30/20 09:00 12/05/20 11:22 Lorazepam (Ativan) 0.25 mg BID PO 12/01/20 09:00 12/03/20 22:00 DC 12/03/20 20:16 Quetiapine Fumarate (SEROquel) 12.5 mg TIDWMEALS PO 12/01/20 08:00 12/02/20 16:12 DC 12/02/20 12:48 Sertraline HCl (Zoloft) 25 mg DAILY PO 12/01/20 09:00 12/02/20 16:00 DC 12/02/20 08:13 Sertraline HCl (Zoloft) 50 mg DAILY PO 12/04/20 09:00 12/02/20 16:00 DC Lorazepam (Ativan) 0.25 mg DAILY PO 12/04/20 09:00 12/06/20 21:00 12/05/20 11:22 Nystatin (Nystop) 1 bryant BID TP 12/01/20 09:00 12/05/20 20:20 Sertraline HCl (Zoloft) 50 mg DAILY PO 12/03/20 09:00 12/02/20 16:10 DC Sertraline HCl (Zoloft) 25 mg DAILY PO 12/03/20 09:00 12/03/20 09:30 DC 12/03/20 07:46 Sertraline HCl (Zoloft) 50 mg DAILY PO 12/07/20 09:00 Quetiapine Fumarate (SEROquel) 25 mg 0900,1200 PO 12/03/20 09:00 12/05/20 13:02 Quetiapine Fumarate (SEROquel) 50 mg 1700 PO 12/02/20 17:00 12/05/20 17:17 Sertraline HCl (Zoloft) 25 mg DAILY PO 12/04/20 09:00 12/06/20 21:00 12/05/20 11:22 Sertraline HCl (Zoloft) 25 mg DAILY PO 12/07/20 09:00 Cancel I have reviewed the current psychotropics carefully including drug interactions. Risk benefit ratio favors no change other than as noted in my dictated progress note. Diagnosis: Problems: (1) Impulse control disorder, unspecified (2) Anxiety disorder, unspecified (3) Major neurocognitive disorder (4) Dementia, vascular, with depression (5) Dementia, vascular, with delusions (6) Dementia in Alzheimer's disease with depression (7) Dementia in Alzheimer's disease with delusions (8) Dementia of the Alzheimer's type with early onset with behavioral disturbanc MADHURI Robin MD December 06, 2020 07:50
[2020-12-06] MEDS: MULTIVITAMIN with MINERAL TABLET. PO SCH (08:32)
[2020-12-06] MEDS: SERTRALINE 25 MG TABLET. PO SCH (08:33)
[2020-12-06] MEDS: MEMANTINE 10 MG TABLET. PO SCH ×2 (08:33→20:17)
[2020-12-06] MEDS: NYSTATIN TOPICAL POWDER 15GM BOTTLE. TP SCH ×2 (08:33→20:17)
[2020-12-06] MEDS: FUROSEMIDE 20 MG TABLET PO SCH (08:33)
[2020-12-06] MEDS: LORazepam 0.5 MG TABLET PO SCH (08:33)
[2020-12-06] MEDS: QUEtiapine 25 MG TABLET. PO SCH ×2 (08:33→15:24)
[2020-12-06] MEDS: busPIRone 10 MG TABLET. PO SCH ×3 (08:33→20:17)
[2020-12-06 16:11] VITALS: BP 156/84
[2020-12-06] MEDS: CHOLECALCIFEROL (VITAMIN D3) 50,000 UNIT CAPSULE PO SCH (17:15)
[2020-12-06] MEDS: QUEtiapine 50 MG TABLET. PO SCH (17:15)
[2020-12-06] MEDS: MELATONIN 3 MG TABLET PO SCH (20:17)
[2020-12-06] MEDS: DONEPEZIL HCL 10 MG TABLET PO SCH (20:17)
--- NOTE | 2020-12-06 21:54 | PDOC ---
Exam Note: Aki Note: Please also refer to the separate dictated note~for this date of service dictated separately.~Patient seen individually. Discussed the patient with Nursing staff reviewed the chart.~Reviewed interim history and current functioning. Reviewed vital signs,~Labs/ Radiology~and current medications noted below. Continue current treatment with the changes noted in the dictated addendum note Assessment: Vital Signs/I&O: Vital Signs Date Time Temp Pulse Resp B/P (MAP) Pulse Ox O2 Delivery O2 Flow Rate FiO2 12/06/20 16:11 97.7 74 20 156/84 (108) 94 Room Air I & O 12/05/20 12/05/20 12/06/20 15:00 23:00 07:00 Intake Total 960 ml 480 ml Balance 960 ml 480 ml Labs: Laboratory Tests Test 12/06/20 07:32 Glucose (Fingerstick) 160 mg/dL (70-99) H Current Medications: Meds: Laboratory Tests Test 12/06/20 07:32 Glucose (Fingerstick) 160 mg/dL Current Medications Medications (Trade) Dose Ordered Sig/Curt Route PRN Reason Start Time Stop Time Status Last Admin Dose Admin Acetaminophen (Tylenol) 650 mg PRN Q6HRS PRN PO MILD PAIN / TEMP > 100.3'F 11/29/20 18:00 Multi-Ingredient Ointment (Analgesic [place]) 1 bryant PRN QID PRN TP MUSCLE PAIN 11/29/20 18:00 Al Hydroxide/Mg Hydroxide (Mylanta Plus Xs) 15 ml PRN AFTMEALHC PRN PO DYSPEPSIA 11/29/20 18:00 Magnesium Hydroxide (Milk Of Magnesia) 2,400 mg PRN QHS PRN PO 1ST CHOICE CONSTIPATION 11/29/20 18:00 Bisacodyl (Dulcolax Supp) 10 mg PRN DAILY PRN RC 2ND CHOICE CONSTIPATION 11/29/20 18:15 Buspirone HCl (Buspar) 10 mg TID PO 11/29/20 21:00 12/06/20 20:17 Vitamin D (Vitamin D3) 50,000 unit QWE PO 12/06/20 16:00 12/06/20 17:15 Donepezil HCl (Aricept) 10 mg QHS PO 11/29/20 21:00 12/06/20 20:17 Furosemide (Lasix) 20 mg DAILY PO 11/30/20 09:00 12/06/20 08:33 Lorazepam (Ativan) 0.5 mg BID PO 11/29/20 21:00 11/30/20 22:44 DC 11/30/20 20:22 Memantine (Namenda) 10 mg BID PO 11/29/20 21:00 12/06/20 20:17 Sodium Biphosphate/ Sodium Phosphate (Fleet Adult) 133 ml PRN DAILY PRN RC 3RD CHOICE CONSTIPATION 11/29/20 18:15 Polyethylene Glycol (miraLAX) 17 gm PRN DAILY PRN PO CONSTIPATION 11/29/20 18:15 Citalopram Hydrobromide (CeleXA) 20 mg DAILY PO 11/30/20 09:00 11/30/20 22:44 DC 11/30/20 12:32 Melatonin (Melatonin) 10.5 mg QHS PO 11/29/20 21:00 12/06/20 20:17 Multivitamins/ Calcium (Thera-M Plus) 1 tab DAILY PO 11/30/20 09:00 12/06/20 08:32 Lorazepam (Ativan) 0.25 mg BID PO 12/01/20 09:00 12/03/20 22:00 DC 12/03/20 20:16 Quetiapine Fumarate (SEROquel) 12.5 mg TIDWMEALS PO 12/01/20 08:00 12/02/20 16:12 DC 12/02/20 12:48 Sertraline HCl (Zoloft) 25 mg DAILY PO 12/01/20 09:00 12/02/20 16:00 DC 12/02/20 08:13 Sertraline HCl (Zoloft) 50 mg DAILY PO 12/04/20 09:00 12/02/20 16:00 DC Lorazepam (Ativan) 0.25 mg DAILY PO 12/04/20 09:00 12/06/20 21:00 DC 12/06/20 08:33 Nystatin (Nystop) 1 bryant BID TP 12/01/20 09:00 12/06/20 20:17 Sertraline HCl (Zoloft) 50 mg DAILY PO 12/03/20 09:00 12/02/20 16:10 DC Sertraline HCl (Zoloft) 25 mg DAILY PO 12/03/20 09:00 12/03/20 09:30 DC 12/03/20 07:46 Sertraline HCl (Zoloft) 50 mg DAILY PO 12/07/20 09:00 Quetiapine Fumarate (SEROquel) 25 mg 0900,1200 PO 12/03/20 09:00 12/06/20 15:24 Quetiapine Fumarate (SEROquel) 50 mg 1700 PO 12/02/20 17:00 12/06/20 17:15 Sertraline HCl (Zoloft) 25 mg DAILY PO 12/04/20 09:00 12/06/20 21:00 DC 12/06/20 08:33 Sertraline HCl (Zoloft) 25 mg DAILY PO 12/07/20 09:00 Cancel Current Medications Medications (Trade) Dose Ordered Sig/Curt Route PRN Reason Start Time Stop Time Status Last Admin Dose Admin Vitamin D (Vitamin D3) 50,000 unit QWE PO 12/06/20 16:00 12/06/20 17:15 I have reviewed the current psychotropics carefully including drug interactions. Risk benefit ratio favors no change other than as noted in my dictated progress note. Diagnosis: Problems: (1) Impulse control disorder, unspecified (2) Anxiety disorder, unspecified (3) Major neurocognitive disorder (4) Dementia, vascular, with depression (5) Dementia, vascular, with delusions (6) Dementia in Alzheimer's disease with depression (7) Dementia in Alzheimer's disease with delusions (8) Dementia of the Alzheimer's type with early onset with behavioral disturbance MADHURI SHAW MD December 06, 2020 21:54
[2020-12-07 06:37] VITALS: BP 152/87
--- NOTE | 2020-12-07 07:03 | PDOC ---
Exam Note: Aki Note: This note is a late entry for 12/05/2020 covers elements not covered in my initial note. Subjective: The patient was seen individually in the evening of 12/05/2020 with Gary STEWART, discussed and reviewed the chart. The patient slept 7-1/2 hours previous night. She slept in, in the morning, screaming and yelling at night, resistive to medications in the evening. She did take her 5 p.m. I met with her in her room. Previously we had provided her a pocket talker but she threw it away. She is somewhat irritable, somewhat sarcastic at times, but some of this is complicated by her being hard of hearing. Review of Systems: No CV, , pulmonary, eye system symptoms on review. She is extremely hard of hearing. Mental Status Exam: The patient is oriented to herself. Insight and judgment, recent and remote memory, attention and concentration, fund of knowledge is poor consistent with her diagnoses. Laboratory Data: Reviewed. Impression: Major neurocognitive disorder Alzheimer vascular with delusion, depression, behavioral disturbance. Impulse control disorder unspecified. Anxiety disorder unspecified. Plan: Continue psychotropics from initial note. Assessment: Vital Signs/I&O: Vital Signs Date Time Temp Pulse Resp B/P (MAP) Pulse Ox O2 Delivery O2 Flow Rate FiO2 12/07/20 06:37 97.0 70 20 152/87 (108) 95 Room Air I & O 12/06/20 12/06/20 12/07/20 15:00 23:00 07:00 Intake Total 560 ml 240 ml 120 ml Balance 560 ml 240 ml 120 ml Labs: Laboratory Tests Test 12/06/20 07:32 Glucose (Fingerstick) 160 mg/dL (70-99) H Current Medications: Meds: Laboratory Tests Test 12/06/20 07:32 Glucose (Fingerstick) 160 mg/dL Current Medications Medications (Trade) Dose Ordered Sig/Curt Route PRN Reason Start Time Stop Time Status Last Admin Dose Admin Acetaminophen (Tylenol) 650 mg PRN Q6HRS PRN PO MILD PAIN / TEMP > 100.3'F 11/29/20 18:00 Multi-Ingredient Ointment (Analgesic [place]) 1 bryant PRN QID PRN TP MUSCLE PAIN 11/29/20 18:00 Al Hydroxide/Mg Hydroxide (Mylanta Plus Xs) 15 ml PRN AFTMEALHC PRN PO DYSPEPSIA 11/29/20 18:00 Magnesium Hydroxide (Milk Of Magnesia) 2,400 mg PRN QHS PRN PO 1ST CHOICE CONSTIPATION 11/29/20 18:00 Bisacodyl (Dulcolax Supp) 10 mg PRN DAILY PRN RC 2ND CHOICE CONSTIPATION 11/29/20 18:15 Buspirone HCl (Buspar) 10 mg TID PO 11/29/20 21:00 12/06/20 20:17 Vitamin D (Vitamin D3) 50,000 unit QWE PO 12/06/20 16:00 12/06/20 17:15 Donepezil HCl (Aricept) 10 mg QHS PO 11/29/20 21:00 12/06/20 20:17 Furosemide (Lasix) 20 mg DAILY PO 11/30/20 09:00 12/06/20 08:33 Lorazepam (Ativan) 0.5 mg BID PO 11/29/20 21:00 11/30/20 22:44 DC 11/30/20 20:22 Memantine (Namenda) 10 mg BID PO 11/29/20 21:00 12/06/20 20:17 Sodium Biphosphate/ Sodium Phosphate (Fleet Adult) 133 ml PRN DAILY PRN RC 3RD CHOICE CONSTIPATION 11/29/20 18:15 Polyethylene Glycol (miraLAX) 17 gm PRN DAILY PRN PO CONSTIPATION 11/29/20 18:15 Citalopram Hydrobromide (CeleXA) 20 mg DAILY PO 11/30/20 09:00 11/30/20 22:44 DC 11/30/20 12:32 Melatonin (Melatonin) 10.5 mg QHS PO 11/29/20 21:00 12/06/20 20:17 Multivitamins/ Calcium (Thera-M Plus) 1 tab DAILY PO 11/30/20 09:00 12/06/20 08:32 Lorazepam (Ativan) 0.25 mg BID PO 12/01/20 09:00 12/03/20 22:00 DC 12/03/20 20:16 Quetiapine Fumarate (SEROquel) 12.5 mg TIDWMEALS PO 12/01/20 08:00 12/02/20 16:12 DC 12/02/20 12:48 Sertraline HCl (Zoloft) 25 mg DAILY PO 12/01/20 09:00 12/02/20 16:00 DC 12/02/20 08:13 Sertraline HCl (Zoloft) 50 mg DAILY PO 12/04/20 09:00 12/02/20 16:00 DC Lorazepam (Ativan) 0.25 mg DAILY PO 12/04/20 09:00 12/06/20 21:00 DC 12/06/20 08:33 Nystatin (Nystop) 1 bryant BID TP 12/01/20 09:00 12/06/20 20:17 Sertraline HCl (Zoloft) 50 mg DAILY PO 12/03/20 09:00 12/02/20 16:10 DC Sertraline HCl (Zoloft) 25 mg DAILY PO 12/03/20 09:00 12/03/20 09:30 DC 12/03/20 07:46 Sertraline HCl (Zoloft) 50 mg DAILY PO 12/07/20 09:00 Quetiapine Fumarate (SEROquel) 25 mg 0900,1200 PO 12/03/20 09:00 12/06/20 15:24 Quetiapine Fumarate (SEROquel) 50 mg 1700 PO 12/02/20 17:00 12/06/20 17:15 Sertraline HCl (Zoloft) 25 mg DAILY PO 12/04/20 09:00 12/06/20 21:00 DC 12/06/20 08:33 Sertraline HCl (Zoloft) 25 mg DAILY PO 12/07/20 09:00 Cancel Current Medications Medications (Trade) Dose Ordered Sig/Curt Route PRN Reason Start Time Stop Time Status Last Admin Dose Admin Vitamin D (Vitamin D3) 50,000 unit QWE PO 12/06/20 16:00 12/06/20 17:15 I have reviewed the current psychotropics carefully including drug interactions. Risk benefit ratio favors no change other than as noted in my dictated progress note. Diagnosis: Problems: (1) Impulse control disorder, unspecified (2) Anxiety disorder, unspecified (3) Major neurocognitive disorder (4) Dementia, vascular, with depression (5) Dementia, vascular, with delusions (6) Dementia in Alzheimer's disease with depression (7) Dementia in Alzheimer's disease with delusions (8) Dementia of the Alzheimer's type with early onset with behavioral disturbance MADHURI SHAW MD December 07, 2020 07:03
--- NOTE | 2020-12-07 07:38 | PDOC ---
Exam Note: Aki Note: This note is a late entry for 12/06/2020 covers elements not covered in my initial note. Subjective: The patient was seen individually in the evening of 12/06/2020 with Katya STEWART, discussed and reviewed the chart. The patient slept 6-3/4 hours previous night. She remains confused, with short-term memory problems, somewhat repetitive, anxious, irritable, somewhat sarcastic. No abrasive behaviors. Review of Systems: No CV, , pulmonary, eye system symptoms on review. She is extremely hard of hearing. Mental Status Exam: The patient is oriented to herself. Insight and judgment, recent and remote memory, attention and concentration, fund of knowledge is poor consistent with her diagnoses. Laboratory Data: Reviewed. Impression: Major neurocognitive disorder Alzheimer vascular with delusion, depression, behavioral disturbance. Impulse control disorder unspecified. Anxiety disorder unspecified. Plan: Continue psychotropics from initial note. Assessment: Vital Signs/I&O: Vital Signs Date Time Temp Pulse Resp B/P (MAP) Pulse Ox O2 Delivery O2 Flow Rate FiO2 12/07/20 06:37 97.0 70 20 152/87 (108) 95 Room Air I & O 12/06/20 12/06/20 12/07/20 15:00 23:00 07:00 Intake Total 560 ml 240 ml 120 ml Balance 560 ml 240 ml 120 ml Current Medications: Meds: Current Medications Medications (Trade) Dose Ordered Sig/Curt Route PRN Reason Start Time Stop Time Status Last Admin Dose Admin Acetaminophen (Tylenol) 650 mg PRN Q6HRS PRN PO MILD PAIN / TEMP > 100.3'F 11/29/20 18:00 Multi-Ingredient Ointment (Analgesic [place]) 1 bryant PRN QID PRN TP MUSCLE PAIN 11/29/20 18:00 Al Hydroxide/Mg Hydroxide (Mylanta Plus Xs) 15 ml PRN AFTMEALHC PRN PO DYSPEPSIA 11/29/20 18:00 Magnesium Hydroxide (Milk Of Magnesia) 2,400 mg PRN QHS PRN PO 1ST CHOICE CONSTIPATION 11/29/20 18:00 Bisacodyl (Dulcolax Supp) 10 mg PRN DAILY PRN RC 2ND CHOICE CONSTIPATION 11/29/20 18:15 Buspirone HCl (Buspar) 10 mg TID PO 11/29/20 21:00 12/06/20 20:17 Vitamin D (Vitamin D3) 50,000 unit QWE PO 12/06/20 16:00 12/06/20 17:15 Donepezil HCl (Aricept) 10 mg QHS PO 11/29/20 21:00 12/06/20 20:17 Furosemide (Lasix) 20 mg DAILY PO 11/30/20 09:00 12/06/20 08:33 Lorazepam (Ativan) 0.5 mg BID PO 11/29/20 21:00 11/30/20 22:44 DC 11/30/20 20:22 Memantine (Namenda) 10 mg BID PO 11/29/20 21:00 12/06/20 20:17 Sodium Biphosphate/ Sodium Phosphate (Fleet Adult) 133 ml PRN DAILY PRN RC 3RD CHOICE CONSTIPATION 11/29/20 18:15 Polyethylene Glycol (miraLAX) 17 gm PRN DAILY PRN PO CONSTIPATION 11/29/20 18:15 Citalopram Hydrobromide (CeleXA) 20 mg DAILY PO 11/30/20 09:00 11/30/20 22:44 DC 11/30/20 12:32 Melatonin (Melatonin) 10.5 mg QHS PO 11/29/20 21:00 12/06/20 20:17 Multivitamins/ Calcium (Thera-M Plus) 1 tab DAILY PO 11/30/20 09:00 12/06/20 08:32 Lorazepam (Ativan) 0.25 mg BID PO 12/01/20 09:00 12/03/20 22:00 DC 12/03/20 20:16 Quetiapine Fumarate (SEROquel) 12.5 mg TIDWMEALS PO 12/01/20 08:00 12/02/20 16:12 DC 12/02/20 12:48 Sertraline HCl (Zoloft) 25 mg DAILY PO 12/01/20 09:00 12/02/20 16:00 DC 12/02/20 08:13 Sertraline HCl (Zoloft) 50 mg DAILY PO 12/04/20 09:00 12/02/20 16:00 DC Lorazepam (Ativan) 0.25 mg DAILY PO 12/04/20 09:00 12/06/20 21:00 DC 12/06/20 08:33 Nystatin (Nystop) 1 bryant BID TP 12/01/20 09:00 12/06/20 20:17 Sertraline HCl (Zoloft) 50 mg DAILY PO 12/03/20 09:00 12/02/20 16:10 DC Sertraline HCl (Zoloft) 25 mg DAILY PO 12/03/20 09:00 12/03/20 09:30 DC 12/03/20 07:46 Sertraline HCl (Zoloft) 50 mg DAILY PO 12/07/20 09:00 Quetiapine Fumarate (SEROquel) 25 mg 0900,1200 PO 12/03/20 09:00 12/06/20 15:24 Quetiapine Fumarate (SEROquel) 50 mg 1700 PO 12/02/20 17:00 12/06/20 17:15 Sertraline HCl (Zoloft) 25 mg DAILY PO 12/04/20 09:00 12/06/20 21:00 DC 12/06/20 08:33 Sertraline HCl (Zoloft) 25 mg DAILY PO 12/07/20 09:00 Cancel Current Medications Medications (Trade) Dose Ordered Sig/Curt Route PRN Reason Start Time Stop Time Status Last Admin Dose Admin Vitamin D (Vitamin D3) 50,000 unit QWE PO 12/06/20 16:00 12/06/20 17:15 I have reviewed the current psychotropics carefully including drug interactions. Risk benefit ratio favors no change other than as noted in my dictated progress note. Diagnosis: Problems: (1) Impulse control disorder, unspecified (2) Anxiety disorder, unspecified (3) Major neurocognitive disorder (4) Dementia, vascular, with depression (5) Dementia, vascular, with delusions (6) Dementia in Alzheimer's disease with depression (7) Dementia in Alzheimer's disease with delusions (8) Dementia of the Alzheimer's type with early onset with behavioral disturbance MADHURI SHAW MD December 07, 2020 07:38
[2020-12-07] MEDS ORDERED: SERTRALINE 50 MG TABLET. PO SCH (09:00)
[2020-12-07] MEDS ORDERED: SERTRALINE 25 MG TABLET. PO SCH (09:00)
[2020-12-07] MEDS: NYSTATIN TOPICAL POWDER 15GM BOTTLE. TP SCH ×2 (09:00→20:49)
[2020-12-07] MEDS: busPIRone 10 MG TABLET. PO SCH ×3 (11:31→20:49)
[2020-12-07] MEDS: MEMANTINE 10 MG TABLET. PO SCH ×2 (11:31→20:49)
[2020-12-07] MEDS: MULTIVITAMIN with MINERAL TABLET. PO SCH (11:31)
[2020-12-07] MEDS: FUROSEMIDE 20 MG TABLET PO SCH (11:32)
[2020-12-07] MEDS: QUEtiapine 25 MG TABLET. PO SCH (11:32)
--- NOTE | 2020-12-07 14:38 | TX PLAN ---
Interdisciplinary Tx Plan Admission Information Nov 29, 2020 at 17:18 Legal Status (on Admission): Voluntary DPOA/Guardian Name: Lucero Marks-Cousin Contact Phone Number: (Cell-DO NOT LEAVE MESSAGE ON CELL) [phone] (Home- CAN LEAVE MESSAGE O Other Contact Name: Priya Melgar Other Contact Phone: (Cell) [phone] (Office)[phone] Verified Code Status: DNR Allergies: Coded Allergies: No Known Drug Allergies (Unverified , 11/29/20) Diagnoses Primary Diagnosis: (1) Major neurocognitive disorder (2) Anxiety disorder, unspecified (3) Impulse control disorder, unspecified Reasons for Admission: Aggressive, Agitated, Angry, Combative, Confusion/Disoriented Problem in Patient's Words: Per Lucero, pt has been angry and aggressive toward staff at her facility. Lucero reports that about 8 to 9 months ago, pt was living with a female friend, Janessa, whom she lived with for a long time. Janessa called her and reported that Sharon was able to care for herself any longer and she was mean and aggressive toward her. Lucero stated that she had never known Sharon to mean towards others, but is wondering if she has some anger that is just part of her personality, but that it was hidden well when she was younger. Additional Admission Comments: Per intake record, pt was threatening to punch staff, combative with staff, yelling out, resists care, disrobing in public, cursing, spitting at staff, and name calling. Problems Active Problems: Agitation, aggressive, confusion, angry Inactive Problems: None at this time. Pt Strengths/Limitations Ability for [place]: Poor Cognitive Functioning/Ability: Fair Communication Skills/Ability: Fair Financial Resources: Fair Insight/Judgement: Poor Intellectual Ability: Fair Physical Health: Fair Social Skills: Fair Stability in Family: Good Stability in School/Work: Good Verbal Skills: Fair Discharge Criteria Discharge Criteria: No need for close observ., Adequate arrangements @DC, Verbal commit med comply, Improved behavior, Improved mood/thought Other Discharge Comments: None noted at this time. Preliminary Discharge Plan Preliminary DC Plan: Current Living Arrange. Special Precautions Fall Risk: High Initial D/C Plan Pt plan is to return to [facility]. Identified Discharge Needs: None known at this time. Currently Utilized Resources Currently Utilized Resources/P: PCP-Dr. Thai Velazco/NANCY-Lucero Marks Facility-[facility] Referrals Community Resources: None noted at this time. Identified Problems/Hx/Goals Objectives/Short-Term Goals Short Term Goals: Control abnormal behavior, Dec. Aggression, Dec. Outbursts, Medication Stabilization, Monitor Med Effects, Promote Coping Skill Short Term Goals in Patient's: Pt to decrease aggressive/combative behaviors and be more cooperative with taking her medications and cares at her facility. Interventions/Frequency Staff Interventions/Frequency&: Psychiatry to assess pt three times per week for medication management. Nursing to assess behaivors, monitor medications, and complete 15 minute checks daily. Social work to see pt at least two times weekly to aid in return to placement. Activities to encourage pt to participate in group activities daily. 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 Education: Pt completed high school and attended all four years graduating [facility] [email or web address]. Community Follow-up PCP Community Provider/Family Inpu: Pt cousin/DPRENATA, Lucero Marks, is aware of pt's hospitalization and is available for further information should it be needed. Treatment Plan Explained Patient/Mixer Diamond [employer]der had this treatment plan explained to him/her as indicated by the signature below and has been given the opportunity to ask questions and make suggestions: Date: Patient/Mixer Diamond [employer]der Signature: Status Update Update Pt has been consuming an average of 80% of her meals and sleeping 8 hours at night. She can be demanding and bossy of others. Pt is extremely [place], but ref used to use the pocket talker. Pt demonstrates attention seeking behaviors and wants constant reassurance of various things such as if staff will come and get her for lunch. Pt can be told numerous times what it is that she needs to do and it is questionable if she is forgetting or if she is just wanting attention. Most likely pt is demonstrating both forgetfulness and attention seeking behaviors. Pt has been medication compliant and has not been combative the past few days. Pt's zoloft will be increased to 75 mg and her 0900 dose of Seroquel will be increased to 75 mg. Pt will return to [facility] once stable. BRITTANIE BEVERLY December 07, 2020 14:38
[2020-12-07 15:49] VITALS: BP 156/89
[2020-12-07] MEDS: QUEtiapine 50 MG TABLET. PO SCH (16:37)
[2020-12-07] MEDS: DONEPEZIL HCL 10 MG TABLET PO SCH (20:49)
[2020-12-07] MEDS: MELATONIN 3 MG TABLET PO SCH (20:49)
[2020-12-08 05:58] VITALS: BP 153/84
[2020-12-08 07:46] LABS: BACTERIA,URINE 0 /HPF (0-FEW); BILIRUBIN,URINE NEG (NEG); CLARITY,URINE CLEAR; COLOR,URINE YELLOW; GLUCOSE,URINE NEG (NEG); NITRITE,URINE NEG (NEG); RBC,URINE 0 /HPF (0-2); SQUAMOUS EPITHELIAL CELL,UR FEW /LPF; UROBILINOGEN,URINE 0.2 mg/dL (0.2 mg/dL); WBC,URINE OCC /HPF (0-4)
--- NOTE | 2020-12-08 07:52 | PDOC ---
Exam Note: Aki Note: This note is a late entry for 12/07/2020 covers elements not covered in my initial note. Subjective: The patient was reviewed in the morning of 12/07/2020 for a treatment team meeting with Candie Sinclair, Carmita Nichols and Erika (social media marketer), Tamar, activity therapy and Katya STEWART, discussed and reviewed the chart. The patient slept 8-1/2 hours previous night. She has been increasingly anxious, takes her medications, can be quite demanding at times. 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 Her 2nd cousin is her DPOA. She always lived with other ladies after she got . UA is contaminated and will be repeated. Memory is impaired, compliant with medications. Review of Systems: No CV, , pulmonary, eye system symptoms on review. She is quite hard of hearing, dismissive, irritable. Mental Status Exam: The patient is oriented to herself. Insight and judgment, recent and remote memory, attention and concentration, fund of knowledge is poor consistent with her diagnoses. No suicidal or homicidal ideation. Laboratory Data: Reviewed. Impression: Major neurocognitive disorder Alzheimer vascular with delusion, depression, behavioral disturbance. Impulse control disorder unspecified. Anxiety disorder unspecified. Plan: Continue psychotropics from initial note. We will increase the Zoloft from 50 mg a day to 75 mg a day and 0900 Seroquel from 25 mg to 37.5 mg. Continue rest of the psychotropics unchanged. Assessment: Vital Signs/I&O: Vital Signs Date Time Temp Pulse Resp B/P (MAP) Pulse Ox O2 Delivery O2 Flow Rate FiO2 12/08/20 05:58 97.4 72 20 153/84 (107) 96 12/07/20 15:49 Room Air I & O 12/07/20 12/07/20 12/08/20 15:00 23:00 07:00 Intake Total 360 ml 360 ml Balance 360 ml 360 ml Labs: Laboratory Tests Test 12/08/20 06:00 Urine Collection Type Unknown Urine Color Yellow Urine Clarity Clear Urine pH 7.0 Urine Specific [place] 1.015 Urine Protein Neg (NEG-TRACE) Urine Glucose (UA) Neg mg/dL (NEG) Urine Ketones (Stick) Neg mg/dL (NEG) Urine Blood Neg (NEG) Urine Nitrite Neg (NEG) Urine Bilirubin Neg (NEG) Urine Urobilinogen Dipstick 0.2 mg/dL (0.2 mg/dL) Urine Leukocyte Esterase Neg (NEG) Urine RBC 0 /HPF (0-2) Urine WBC Occ /HPF (0-4) Urine Squamous Epithelial Cells Few /LPF Urine Bacteria 0 /HPF (0-FEW) Current Medications: Meds: Laboratory Tests Test 12/08/20 06:00 Urine Collection Type Unknown Urine Color Yellow Urine Clarity Clear Urine pH 7.0 Urine Specific [place] 1.015 Urine Protein Neg Urine Glucose (UA) Neg mg/dL Urine Ketones (Stick) Neg mg/dL Urine Blood Neg Urine Nitrite Neg Urine Bilirubin Neg Urine Urobilinogen Dipstick 0.2 mg/dL Urine Leukocyte Esterase Neg Urine RBC 0 /HPF Urine WBC Occ /HPF Urine Squamous Epithelial Cells Few /LPF Urine Bacteria 0 /HPF Current Medications Medications (Trade) Dose Ordered Sig/Curt Route PRN Reason Start Time Stop Time Status Last Admin Dose Admin Acetaminophen (Tylenol) 650 mg PRN Q6HRS PRN PO MILD PAIN / TEMP > 100.3'F 11/29/20 18:00 Multi-Ingredient Ointment (Analgesic [place]) 1 bryant PRN QID PRN TP MUSCLE PAIN 11/29/20 18:00 Al Hydroxide/Mg Hydroxide (Mylanta Plus Xs) 15 ml PRN AFTMEALHC PRN PO DYSPEPSIA 11/29/20 18:00 Magnesium Hydroxide (Milk Of Magnesia) 2,400 mg PRN QHS PRN PO 1ST CHOICE CONSTIPATION 11/29/20 18:00 Bisacodyl (Dulcolax Supp) 10 mg PRN DAILY PRN RC 2ND CHOICE CONSTIPATION 11/29/20 18:15 Buspirone HCl (Buspar) 10 mg TID PO 11/29/20 21:00 12/07/20 20:49 Vitamin D (Vitamin D3) 50,000 unit QWE PO 12/06/20 16:00 12/06/20 17:15 Donepezil HCl (Aricept) 10 mg QHS PO 11/29/20 21:00 12/07/20 20:49 Furosemide (Lasix) 20 mg DAILY PO 11/30/20 09:00 12/07/20 11:32 Lorazepam (Ativan) 0.5 mg BID PO 11/29/20 21:00 11/30/20 22:44 DC 11/30/20 20:22 Memantine (Namenda) 10 mg BID PO 11/29/20 21:00 12/07/20 20:49 Sodium Biphosphate/ Sodium Phosphate (Fleet Adult) 133 ml PRN DAILY PRN RC 3RD CHOICE CONSTIPATION 11/29/20 18:15 Polyethylene Glycol (miraLAX) 17 gm PRN DAILY PRN PO CONSTIPATION 11/29/20 18:15 Citalopram Hydrobromide (CeleXA) 20 mg DAILY PO 11/30/20 09:00 11/30/20 22:44 DC 11/30/20 12:32 Melatonin (Melatonin) 10.5 mg QHS PO 11/29/20 21:00 12/07/20 20:49 Multivitamins/ Calcium (Thera-M Plus) 1 tab DAILY PO 11/30/20 09:00 12/07/20 11:31 Lorazepam (Ativan) 0.25 mg BID PO 12/01/20 09:00 12/03/20 22:00 DC 12/03/20 20:16 Quetiapine Fumarate (SEROquel) 12.5 mg TIDWMEALS PO 12/01/20 08:00 12/02/20 16:12 DC 12/02/20 12:48 Sertraline HCl (Zoloft) 25 mg DAILY PO 12/01/20 09:00 12/02/20 16:00 DC 12/02/20 08:13 Sertraline HCl (Zoloft) 50 mg DAILY PO 12/04/20 09:00 12/02/20 16:00 DC Lorazepam (Ativan) 0.25 mg DAILY PO 12/04/20 09:00 12/06/20 21:00 DC 12/06/20 08:33 Nystatin (Nystop) 1 bryant BID TP 12/01/20 09:00 12/07/20 20:49 Sertraline HCl (Zoloft) 50 mg DAILY PO 12/03/20 09:00 12/02/20 16:10 DC Sertraline HCl (Zoloft) 25 mg DAILY PO 12/03/20 09:00 12/03/20 09:30 DC 12/03/20 07:46 Sertraline HCl (Zoloft) 50 mg DAILY PO 12/07/20 09:00 12/07/20 11:10 DC Quetiapine Fumarate (SEROquel) 25 mg 0900,1200 PO 12/03/20 09:00 12/07/20 11:10 DC 12/06/20 15:24 Quetiapine Fumarate (SEROquel) 50 mg 1700 PO 12/02/20 17:00 12/07/20 16:37 Sertraline HCl (Zoloft) 25 mg DAILY PO 12/04/20 09:00 12/06/20 21:00 DC 12/06/20 08:33 Sertraline HCl (Zoloft) 25 mg DAILY PO 12/07/20 09:00 Cancel Quetiapine Fumarate (SEROquel) 25 mg 1200 PO 12/07/20 12:00 12/07/20 11:32 Sertraline HCl (Zoloft) 75 mg DAILY PO 12/08/20 09:00 Quetiapine Fumarate (SEROquel) 37.5 mg 0900 PO 12/08/20 09:00 Current Medications Medications (Trade) Dose Ordered Sig/Curt Route PRN Reason Start Time Stop Time Status Last Admin Dose Admin Quetiapine Fumarate (SEROquel) 25 mg 1200 PO 12/07/20 12:00 12/07/20 11:32 I have reviewed the current psychotropics carefully including drug interactions. Risk benefit ratio favors no change other than as noted in my dictated progress note. Diagnosis: Problems: (1) Impulse control disorder, unspecified (2) Anxiety disorder, unspecified (3) Major neurocognitive disorder (4) Dementia, vascular, with depression (5) Dementia, vascular, with delusions (6) Dementia in Alzheimer's disease with depression (7) Dementia in Alzheimer's disease with delusions (8) Dementia of the Alzheimer's type with early onset with behavioral distu rbMADHURI Sr MD December 08, 2020 07:52
[2020-12-08] MEDS: FUROSEMIDE 20 MG TABLET PO SCH (08:59)
[2020-12-08] MEDS: SERTRALINE 25 MG TABLET. PO SCH (08:59)
[2020-12-08] MEDS: MULTIVITAMIN with MINERAL TABLET. PO SCH (08:59)
[2020-12-08] MEDS: MEMANTINE 10 MG TABLET. PO SCH ×2 (08:59→21:14)
[2020-12-08] MEDS: busPIRone 10 MG TABLET. PO SCH ×3 (08:59→21:14)
[2020-12-08] MEDS: QUEtiapine 25 MG TABLET. PO SCH ×2 (08:59→12:15)
[2020-12-08] MEDS: NYSTATIN TOPICAL POWDER 15GM BOTTLE. TP SCH ×2 (09:03→21:00)
[2020-12-08 15:54] VITALS: BP 145/79
[2020-12-08] MEDS: QUEtiapine 50 MG TABLET. PO SCH (17:24)
[2020-12-08] MEDS: DONEPEZIL HCL 10 MG TABLET PO SCH (21:14)
[2020-12-08] MEDS: MELATONIN 3 MG TABLET PO SCH (21:15)
--- NOTE | 2020-12-08 21:50 | PDOC ---
Exam Note: Aki Note: Please also refer to the separate dictated note~for this date of service dictated separately.~Patient seen individually. Discussed the patient with Nursing staff reviewed the chart.~Reviewed interim history and current functioning. Reviewed vital signs,~Labs/ Radiology~and current medications noted below. Continue current treatment with the changes noted in the dictated addendum note Assessment: Vital Signs/I&O: Vital Signs Date Time Temp Pulse Resp B/P (MAP) Pulse Ox O2 Delivery O2 Flow Rate FiO2 12/08/20 15:54 99.0 74 20 145/79 (101) 94 12/07/20 15:49 Room Air I & O 12/07/20 12/07/20 12/08/20 15:00 23:00 07:00 Intake Total 360 ml 360 ml Balance 360 ml 360 ml Labs: Laboratory Tests Test 12/08/20 06:00 Urine Collection Type Unknown Urine Color Yellow Urine Clarity Clear Urine pH 7.0 Urine Specific [place] 1.015 Urine Protein Neg (NEG-TRACE) Urine Glucose (UA) Neg mg/dL (NEG) Urine Ketones (Stick) Neg mg/dL (NEG) Urine Blood Neg (NEG) Urine Nitrite Neg (NEG) Urine Bilirubin Neg (NEG) Urine Urobilinogen Dipstick 0.2 mg/dL (0.2 mg/dL) Urine Leukocyte Esterase Neg (NEG) Urine RBC 0 /HPF (0-2) Urine WBC Occ /HPF (0-4) Urine Squamous Epithelial Cells Few /LPF Urine Bacteria 0 /HPF (0-FEW) Current Medications: Meds: Laboratory Tests Test 12/08/20 06:00 Urine Collection Type Unknown Urine Color Yellow Urine Clarity Clear Urine pH 7.0 Urine Specific [place] 1.015 Urine Protein Neg Urine Glucose (UA) Neg mg/dL Urine Ketones (Stick) Neg mg/dL Urine Blood Neg Urine Nitrite Neg Urine Bilirubin Neg Urine Urobilinogen Dipstick 0.2 mg/dL Urine Leukocyte Esterase Neg Urine RBC 0 /HPF Urine WBC Occ /HPF Urine Squamous Epithelial Cells Few /LPF Urine Bacteria 0 /HPF Current Medications Medications (Trade) Dose Ordered Sig/Curt Route PRN Reason Start Time Stop Time Status Last Admin Dose Admin Acetaminophen (Tylenol) 650 mg PRN Q6HRS PRN PO MILD PAIN / TEMP > 100.3'F 11/29/20 18:00 Multi-Ingredient Ointment (Analgesic [place]) 1 bryant PRN QID PRN TP MUSCLE PAIN 11/29/20 18:00 Al Hydroxide/Mg Hydroxide (Mylanta Plus Xs) 15 ml PRN AFTMEALHC PRN PO DYSPEPSIA 11/29/20 18:00 Magnesium Hydroxide (Milk Of Magnesia) 2,400 mg PRN QHS PRN PO 1ST CHOICE CONSTIPATION 11/29/20 18:00 Bisacodyl (Dulcolax Supp) 10 mg PRN DAILY PRN RC 2ND CHOICE CONSTIPATION 11/29/20 18:15 Buspirone HCl (Buspar) 10 mg TID PO 11/29/20 21:00 12/08/20 21:14 Vitamin D (Vitamin D3) 50,000 unit QWE PO 12/06/20 16:00 12/06/20 17:15 Donepezil HCl (Aricept) 10 mg QHS PO 11/29/20 21:00 12/08/20 21:14 Furosemide (Lasix) 20 mg DAILY PO 11/30/20 09:00 12/08/20 08:59 Lorazepam (Ativan) 0.5 mg BID PO 11/29/20 21:00 11/30/20 22:44 DC 11/30/20 20:22 Memantine (Namenda) 10 mg BID PO 11/29/20 21:00 12/08/20 21:14 Sodium Biphosphate/ Sodium Phosphate (Fleet Adult) 133 ml PRN DAILY PRN RC 3RD CHOICE CONSTIPATION 11/29/20 18:15 Polyethylene Glycol (miraLAX) 17 gm PRN DAILY PRN PO CONSTIPATION 11/29/20 18:15 Citalopram Hydrobromide (CeleXA) 20 mg DAILY PO 11/30/20 09:00 11/30/20 22:44 DC 11/30/20 12:32 Melatonin (Melatonin) 10.5 mg QHS PO 11/29/20 21:00 12/08/20 21:15 Multivitamins/ Calcium (Thera-M Plus) 1 tab DAILY PO 11/30/20 09:00 12/08/20 08:59 Lorazepam (Ativan) 0.25 mg BID PO 12/01/20 09:00 12/03/20 22:00 DC 12/03/20 20:16 Quetiapine Fumarate (SEROquel) 12.5 mg TIDWMEALS PO 12/01/20 08:00 12/02/20 16:12 DC 12/02/20 12:48 Sertraline HCl (Zoloft) 25 mg DAILY PO 12/01/20 09:00 12/02/20 16:00 DC 12/02/20 08:13 Sertraline HCl (Zoloft) 50 mg DAILY PO 12/04/20 09:00 12/02/20 16:00 DC Lorazepam (Ativan) 0.25 mg DAILY PO 12/04/20 09:00 12/06/20 21:00 DC 12/06/20 08:33 Nystatin (Nystop) 1 bryant BID TP 12/01/20 09:00 12/08/20 21:00 Sertraline HCl (Zoloft) 50 mg DAILY PO 12/03/20 09:00 12/02/20 16:10 DC Sertraline HCl (Zoloft) 25 mg DAILY PO 12/03/20 09:00 12/03/20 09:30 DC 12/03/20 07:46 Sertraline HCl (Zoloft) 50 mg DAILY PO 12/07/20 09:00 12/07/20 11:10 DC Quetiapine Fumarate (SEROquel) 25 mg 0900,1200 PO 12/03/20 09:00 12/07/20 11:10 DC 12/06/20 15:24 Quetiapine Fumarate (SEROquel) 50 mg 1700 PO 12/02/20 17:00 12/08/20 17:24 Sertraline HCl (Zoloft) 25 mg DAILY PO 12/04/20 09:00 12/06/20 21:00 DC 12/06/20 08:33 Sertraline HCl (Zoloft) 25 mg DAILY PO 12/07/20 09:00 Cancel Quetiapine Fumarate (SEROquel) 25 mg 1200 PO 12/07/20 12:00 12/08/20 12:15 Sertraline HCl (Zoloft) 75 mg DAILY PO 12/08/20 09:00 12/08/20 08:59 Quetiapine Fumarate (SEROquel) 37.5 mg 0900 PO 12/08/20 09:00 12/08/20 08:59 Current Medications Medications (Trade) Dose Ordered Sig/Curt Route PRN Reason Start Time Stop Time Status Last Admin Dose Admin Sertraline HCl (Zoloft) 75 mg DAILY PO 12/08/20 09:00 12/08/20 08:59 Quetiapine Fumarate (SEROquel) 37.5 mg 0900 PO 12/08/20 09:00 12/08/20 08:59 I have reviewed the current psychotropics carefully including drug interactions. Risk benefit ratio favors no change other than as noted in my dictated progress note. Diagnosis: Problems: (1) Impulse control disorder, unspecified (2) Anxiety disorder, unspecified (3) Major neurocognitive disorder (4) Dementia, vascular, with depression (5) Dementia, vascular, with delusions (6) Dementia in Alzheimer's disease with depression (7) Dementia in Alzheimer's disease with delusions (8) Dementia of the Alzheimer's type with early onset with behavioral disturbance MADHURI SHAW MD December 08, 2020 21:50
[2020-12-09 06:02] VITALS: BP 162/95
[2020-12-09] MEDS: MULTIVITAMIN with MINERAL TABLET. PO SCH (08:25)
[2020-12-09] MEDS: MEMANTINE 10 MG TABLET. PO SCH ×2 (08:25→21:00)
[2020-12-09] MEDS: busPIRone 10 MG TABLET. PO SCH ×3 (08:25→21:00)
[2020-12-09] MEDS: SERTRALINE 25 MG TABLET. PO SCH (08:25)
[2020-12-09] MEDS: FUROSEMIDE 20 MG TABLET PO SCH (08:25)
[2020-12-09] MEDS: QUEtiapine 25 MG TABLET. PO SCH ×2 (08:26→12:36)
[2020-12-09] MEDS: NYSTATIN TOPICAL POWDER 15GM BOTTLE. TP SCH ×2 (08:26→21:00)
[2020-12-09 16:05] VITALS: BP 128/88
[2020-12-09] MEDS: QUEtiapine 50 MG TABLET. PO SCH (17:00)
[2020-12-09] MEDS: MELATONIN 3 MG TABLET PO SCH (21:00)
[2020-12-09] MEDS: DONEPEZIL HCL 10 MG TABLET PO SCH (21:00)
[2020-12-10 06:12] VITALS: BP 140/78
[2020-12-10] MEDS: NYSTATIN TOPICAL POWDER 15GM BOTTLE. TP SCH ×2 (09:00→20:21)
[2020-12-10] MEDS: busPIRone 10 MG TABLET. PO SCH ×3 (10:09→20:19)
[2020-12-10] MEDS: MEMANTINE 10 MG TABLET. PO SCH ×2 (10:09→20:19)
[2020-12-10] MEDS: SERTRALINE 25 MG TABLET. PO SCH (10:09)
[2020-12-10] MEDS: QUEtiapine 25 MG TABLET. PO SCH ×2 (10:09→13:08)
[2020-12-10] MEDS: FUROSEMIDE 20 MG TABLET PO SCH (10:09)
[2020-12-10] MEDS: MULTIVITAMIN with MINERAL TABLET. PO SCH (10:10)
--- NOTE | 2020-12-10 14:38 | PN ---
DATE: 12/09/2020 SUBJECTIVE: The patient was seen today, met with the staff. Chart was reviewed and also covering for Dr. Black. The patient apparently has a severe hearing loss, cognitive deficits, also increased confusion, but pleasant most of the time. OBSERVATION: VITAL SIGNS: Temperature 97.6, blood pressure 162/95, pulse 61, respirations 18, O2 sat 96%. Slept about 9 hours last night. LABORATORY DATA: The patient's appetite improved. CURRENT MEDICATIONS: Include Zoloft 75 mg daily, Seroquel 25 mg daily and 50 mg at night, melatonin ____ mg at night, Namenda 10 mg b.i.d., Aricept 10 mg at night, BuSpar 10 mg 3 times a day. The patient is not having any side effects. LABORATORY DATA: Patient's lab reviewed. ASSESSMENT: Major neurocognitive disorder, vascular with delusions, depression and behavioral disturbances. PLAN: She will continue with the current treatment plan. Length of stay 7 to 10 days. YAO/JULIÁN DR: Dennis TID: [id number] [facility]
[2020-12-10 16:16] VITALS: BP 151/88
[2020-12-10] MEDS: QUEtiapine 50 MG TABLET. PO SCH (17:15)
[2020-12-10] MEDS: DONEPEZIL HCL 10 MG TABLET PO SCH (20:19)
[2020-12-10] MEDS: MELATONIN 3 MG TABLET PO SCH (20:19)
--- NOTE | 2020-12-11 02:17 | PN ---
DATE: 12/10/2020 SUBJECTIVE: The patient was seen today, met with the staff. Chart was reviewed and also covering for Dr. Black. Staff reports increased confusion, med compliant, also significant hearing loss. PHYSICAL EXAMINATION: VITAL SIGNS: Temperature 97.1, blood pressure 140/78, pulse 75, respirations 18, O2 sat 95%. Slept about 7 hours last night. This patient's appetite is fair. The patient is not having any side effects to medications. No other physical complaints. CURRENT MEDICATIONS: Include Zoloft 75 mg daily, Seroquel 25 mg daily and 50 mg at night, melatonin 10 mg at night, Namenda 10 mg twice a day, Aricept 10 mg at night, BuSpar 10 mg 3 times a day. She is not having any side effects. LABORATORY DATA: The patient's lab reviewed. ASSESSMENT: Major neurocognitive disorder, vascular with delusions, depression and behavioral disturbances. PLAN: Continue with the current treatment plan. Length of stay 7-10 days. The patient will be returned to [facility] once she is stable. NIKKI/ALMA/JULIÁN DR: NIKKI/tawnya TID: [id number] [facility]
[2020-12-11 06:32] VITALS: BP 170/92
[2020-12-11 07:12] LABS: BASO % 1 % (0-3); EOS # 0.2 x10^3/uL (0.0-0.7); EOS % 4 % (0-3); HEMATOCRIT 33.8 % (36.0-47.0); HEMOGLOBIN 11.4 g/dL (12.0-15.5); LYMPH # 1.3 x10^3/uL (1.0-4.8); LYMPH % 21 % (24-48); MEAN CORPUSCULAR HEMOGLOBIN 28 pg (25-35); MEAN CORPUSCULAR HGB CONC 34 g/dL (31-37); MEAN CORPUSCULAR VOLUME 83 fL (79-100); MONO # 0.5 x10^3/uL (0.0-1.1); MONO % 8 % (0-9); NEUT # 3.9 x10^3uL (1.8-7.7); NEUT % 67 % (31-73); PLATELET COUNT 203 x10^3/uL (140-400); RED BLOOD COUNT 4.07 x10^6/uL (3.50-5.40); RED CELL DISTRIBUTION WIDTH 16.5 % (11.5-14.5); WHITE BLOOD COUNT 5.9 x10^3/uL (4.0-11.0)
[2020-12-11] MEDS: SERTRALINE 25 MG TABLET. PO SCH (08:01)
[2020-12-11] MEDS: MEMANTINE 10 MG TABLET. PO SCH ×2 (08:01→20:18)
[2020-12-11] MEDS: FUROSEMIDE 20 MG TABLET PO SCH (08:02)
[2020-12-11] MEDS: QUEtiapine 25 MG TABLET. PO SCH ×2 (08:02→12:12)
[2020-12-11] MEDS: busPIRone 10 MG TABLET. PO SCH ×3 (08:02→20:18)
[2020-12-11] MEDS: NYSTATIN TOPICAL POWDER 15GM BOTTLE. TP SCH ×2 (08:03→20:18)
[2020-12-11] MEDS: MULTIVITAMIN with MINERAL TABLET. PO SCH (08:04)
[2020-12-11 09:23] LABS: ALBUMIN 2.7 g/dL (3.4-5.0); ALBUMIN/GLOBULIN RATIO 0.8 (1.0-1.7); CALCIUM 8.7 mg/dL (8.5-10.1); GFR 53.2; TOTAL BILIRUBIN 0.4 mg/dL (0.2-1.0); TOTAL PROTEIN 6.3 g/dL (6.4-8.2)
[2020-12-11 16:08] VITALS: BP 156/81
[2020-12-11] MEDS: QUEtiapine 50 MG TABLET. PO SCH (17:11)
[2020-12-11] MEDS: DONEPEZIL HCL 10 MG TABLET PO SCH (20:18)
[2020-12-11] MEDS: MELATONIN 3 MG TABLET PO SCH (20:18)
--- NOTE | 2020-12-11 23:50 | PN ---
DATE: 12/11/2020 SUBJECTIVE: The patient is confused at times, also behavioral problems, gets agitated easily. The patient also has significant hearing loss. OBSERVATION VITAL SIGNS: Temperature 98.1, blood pressure 170/92, pulse 68, respirations 16 and O2 sat 96%. Slept about 8 hours last night. The patient's appetite is fair. CURRENT MEDICATIONS: Seroquel 25 mg daily and 50 mg at night, Zoloft 75 mg daily, Namenda 10 mg twice a day, Aricept 10 mg at night, BuSpar 10 mg 3 times a day. The patient is not having any side effects. LABORATORY DATA: The patient's lab reviewed. ASSESSMENT: Major neurocognitive disorder, vascular with delusion, depression and behavioral disturbances. PLAN: Continue with the current treatment plan. Length of stay 7 to 10 days. The patient is planned to be returned to [place] ____ once she is stable. GABY/JULIÁN DR: Dennis TID: [id number] [facility]
[2020-12-12 06:13] VITALS: BP 158/90
[2020-12-12] MEDS: NYSTATIN TOPICAL POWDER 15GM BOTTLE. TP SCH ×2 (08:43→20:43)
[2020-12-12] MEDS: QUEtiapine 25 MG TABLET. PO SCH ×2 (08:44→12:18)
[2020-12-12] MEDS: MULTIVITAMIN with MINERAL TABLET. PO SCH (08:44)
[2020-12-12] MEDS: FUROSEMIDE 20 MG TABLET PO SCH (08:44)
[2020-12-12] MEDS: busPIRone 10 MG TABLET. PO SCH ×3 (08:44→20:43)
[2020-12-12] MEDS: amLODIPine BESYLATE 5 MG TABLET PO SCH (08:44)
[2020-12-12] MEDS: MEMANTINE 10 MG TABLET. PO SCH ×2 (08:44→20:43)
[2020-12-12] MEDS: SERTRALINE 25 MG TABLET. PO SCH (08:44)
[2020-12-12 16:25] VITALS: BP 126/72
[2020-12-12] MEDS: QUEtiapine 50 MG TABLET. PO SCH (17:24)
[2020-12-12] MEDS: MELATONIN 3 MG TABLET PO SCH (20:43)
[2020-12-12] MEDS: DONEPEZIL HCL 10 MG TABLET PO SCH (20:43)
[2020-12-13 06:04] VITALS: BP 155/84
[2020-12-13] MEDS: SERTRALINE 25 MG TABLET. PO SCH (08:39)
[2020-12-13] MEDS: QUEtiapine 25 MG TABLET. PO SCH ×2 (08:39→12:49)
[2020-12-13] MEDS: FUROSEMIDE 20 MG TABLET PO SCH (08:39)
[2020-12-13] MEDS: MULTIVITAMIN with MINERAL TABLET. PO SCH (08:39)
[2020-12-13] MEDS: MEMANTINE 10 MG TABLET. PO SCH ×2 (08:39→20:10)
[2020-12-13] MEDS: busPIRone 10 MG TABLET. PO SCH ×3 (08:39→20:11)
[2020-12-13] MEDS: amLODIPine BESYLATE 5 MG TABLET PO SCH (08:40)
[2020-12-13] MEDS: NYSTATIN TOPICAL POWDER 15GM BOTTLE. TP SCH ×2 (08:40→20:11)
[2020-12-13] MEDS: CHOLECALCIFEROL (VITAMIN D3) 50,000 UNIT CAPSULE PO SCH (08:40)
--- NOTE | 2020-12-13 09:41 | PN ---
DATE: 12/12/2020 SUBJECTIVE: The patient was seen today, met with the staff, chart was reviewed and covering for Dr. Black. The patient has periods of increased agitation and also having problems with hearing loss. OBSERVATION: VITAL SIGNS: Temperature 97.4, blood pressure 126/72, pulse 95, respirations 18, O2 sat 95%. CURRENT MEDICATIONS: Include Seroquel 25 mg daily and 50 mg at night, Zoloft 75 mg daily, Namenda 10 mg twice a day, Aricept 10 mg at night, BuSpar 10 mg 3 times a day. She is not having any side effects. ASSESSMENT: Major neurocognitive disorder, vascular with delusion, depression, behavioral disturbances. The patient's lab reviewed, which were all within normal range. PLAN: The patient will continue with the treatment plan. LENGTH OF STAY: 7-[address]: Dennis TID: [id number]
[2020-12-13 16:30] VITALS: BP 149/82
[2020-12-13] MEDS: QUEtiapine 50 MG TABLET. PO SCH (17:51)
[2020-12-13] MEDS: DONEPEZIL HCL 10 MG TABLET PO SCH (20:10)
[2020-12-13] MEDS: MELATONIN 3 MG TABLET PO SCH (20:11)
[2020-12-14 05:28] VITALS: BP 164/95
--- NOTE | 2020-12-14 07:56 | PN ---
DATE: 12/13/2020 SUBJECTIVE: The patient was seen today, met with the staff. Chart was reviewed and also covering for Dr. Black. Staff reports that the patient still has periods of confusion, social withdrawal, tend to isolate herself, but medication compliant. OBSERVATION: VITAL SIGNS: Temperature 97.5, blood pressure 155/84, pulse 71, respirations 16, O2 sat 95%. Slept about 8 hours last night. The patient's appetite is fair. LABORATORY DATA: The patient's lab reviewed. CURRENT MEDICATIONS: Include Seroquel 37.5 mg daily and 25 mg at noon and 50 mg at night. The patient is also on Zoloft 75 mg daily, melatonin ____ mg at night, Namenda 10 mg b.i.d., Aricept 10 mg at night and BuSpar 10 mg 3 times a day. The patient is not having any side effects. ASSESSMENT: Major neurocognitive disorder, vascular with delusion, depression and behavioral disturbances. PLAN: To continue with the treatment. LENGTH OF STAY: Seven to ten days. NIKKI/JOSSE/BELA DR: NIKKI/tawnya TID: [id number]
[2020-12-14] MEDS: MEMANTINE 10 MG TABLET. PO SCH ×2 (08:45→20:54)
[2020-12-14] MEDS: amLODIPine BESYLATE 5 MG TABLET PO SCH (08:45)
[2020-12-14] MEDS: SERTRALINE 25 MG TABLET. PO SCH (08:45)
[2020-12-14] MEDS: QUEtiapine 25 MG TABLET. PO SCH ×2 (08:45→12:29)
[2020-12-14] MEDS: FUROSEMIDE 20 MG TABLET PO SCH (08:45)
[2020-12-14] MEDS: MULTIVITAMIN with MINERAL TABLET. PO SCH (08:45)
[2020-12-14] MEDS: busPIRone 10 MG TABLET. PO SCH ×3 (08:46→20:54)
[2020-12-14] MEDS: NYSTATIN TOPICAL POWDER 15GM BOTTLE. TP SCH ×2 (08:46→20:54)
[2020-12-14 16:14] VITALS: BP 148/89
[2020-12-14] MEDS ORDERED: QUEtiapine 25 MG TABLET. PO PRN (17:00)
[2020-12-14] MEDS: QUEtiapine 50 MG TABLET. PO SCH (17:45)
[2020-12-14] MEDS: MELATONIN 3 MG TABLET PO SCH (20:54)
[2020-12-14] MEDS: DONEPEZIL HCL 10 MG TABLET PO SCH (20:55)
--- NOTE | 2020-12-15 04:37 | PN ---
DATE: 12/14/2020 SUBJECTIVE: The patient was seen today and met with the staff, chart reviewed. Also, covering for Dr. Black. The patient continues to be withdrawn, isolative, but medication compliant and periods of confusion. OBJECTIVE: VITAL SIGNS: Temperature 97.3, blood pressure 164/95, pulse 61, respirations 18, O2 sat 93%. Slept about 7 hours last night. The patient's appetite is fair. LABORATORY DATA: The patient's lab reviewed. CURRENT MEDICATIONS: Includes Seroquel 37.5 mg daily, 25 mg at noon and 50 mg at night. The patient is also on Zoloft 75 mg daily and melatonin at night and Namenda 10 mg b.i.d. She is also on Aricept 10 mg at night and BuSpar 10 mg 3 times a day. The patient is not having any side effects. ASSESSMENT: Major neurocognitive disorder, vascular with delusion, depression, behavioral disturbances. PLAN: To continue with treatment. LENGTH OF STAY: Seven days. BRENDA DR: Dennis TID: [id number]
[2020-12-15 05:38] VITALS: BP 152/81
[2020-12-15] MEDS: SERTRALINE 25 MG TABLET. PO SCH (08:08)
[2020-12-15] MEDS: MEMANTINE 10 MG TABLET. PO SCH ×2 (08:08→20:25)
[2020-12-15] MEDS: busPIRone 10 MG TABLET. PO SCH ×3 (08:08→20:25)
[2020-12-15] MEDS: MULTIVITAMIN with MINERAL TABLET. PO SCH (08:09)
[2020-12-15] MEDS: FUROSEMIDE 20 MG TABLET PO SCH (08:09)
[2020-12-15] MEDS: QUEtiapine 25 MG TABLET. PO SCH ×2 (08:10→12:16)
[2020-12-15] MEDS: amLODIPine BESYLATE 5 MG TABLET PO SCH (08:11)
[2020-12-15] MEDS: NYSTATIN TOPICAL POWDER 15GM BOTTLE. TP SCH ×2 (08:11→20:28)
--- NOTE | 2020-12-15 09:08 | TX PLAN ---
Interdisciplinary Tx Plan Admission Information Nov 29, 2020 at 17:18 Legal Status (on Admission): Voluntary DPOA/Guardian Name: Lucero Marks-Cousin Contact Phone Number: (Cell-DO NOT LEAVE MESSAGE ON CELL) [phone] (Home- CAN LEAVE MESSAGE O Other Contact Name: Priya Melgar Other Contact Phone: (Cell) [phone] (Office)[phone] Verified Code Status: DNR Allergies: Coded Allergies: No Known Drug Allergies (Unverified , 11/29/20) Diagnoses Primary Diagnosis: (1) Major neurocognitive disorder (2) Anxiety disorder, unspecified (3) Impulse control disorder, unspecified Reasons for Admission: Aggressive, Agitated, Angry, Combative, Confusion/Disoriented Problem in Patient's Words: Per Lucero, pt has been angry and aggressive toward staff at her facility. Lucero reports that about 8 to 9 months ago, pt was living with a female friend, Janessa, whom she lived with for a long time. Janessa called her and reported that Sharon was able to care for herself any longer and she was mean and aggressive toward her. Lucero stated that she had never known Sharon to mean towards others, but is wondering if she has some anger that is just part of her personality, but that it was hidden well when she was younger. Additional Admission Comments: Per intake record, pt was threatening to punch staff, combative with staff, yelling out, resists care, disrobing in public, cursing, spitting at staff, and name calling. Problems Active Problems: Agitation, aggressive, confusion, angry Inactive Problems: None at this time. Pt Strengths/Limitations Ability for [place]: Poor Cognitive Functioning/Ability: Fair Communication Skills/Ability: Fair Financial Resources: Fair Insight/Judgement: Poor Intellectual Ability: Fair Physical Health: Fair Social Skills: Fair Stability in Family: Good Stability in School/Work: Good Verbal Skills: Fair Discharge Criteria Discharge Criteria: No need for close observ., Adequate arrangements @DC, Verbal commit med comply, Improved behavior, Improved mood/thought Other Discharge Comments: None noted at this time. Preliminary Discharge Plan Preliminary DC Plan: Current Living Arrange. Special Precautions Fall Risk: High Initial D/C Plan Pt plan is to return to [facility]. Identified Discharge Needs: None known at this time. Currently Utilized Resources Currently Utilized Resources/P: PCP-Dr. Thai Velazco/NANCY-Lucero Marks Facility-[facility] Referrals Community Resources: None noted at this time. Identified Problems/Hx/Goals Objectives/Short-Term Goals Short Term Goals: Control abnormal behavior, Dec. Aggression, Dec. Outbursts, Medication Stabilization, Monitor Med Effects, Promote Coping Skill Short Term Goals in Patient's: Pt to decrease aggressive/combative behaviors and be more cooperative with taking her medications and cares at her facility. Interventions/Frequency Staff Interventions/Frequency&: Psychiatry to assess pt three times per week for medication management. Nursing to assess behaivors, monitor medications, and complete 15 minute checks daily. Social work to see pt at least two times weekly to aid in return to placement. Activities to encourage pt to participate in group activities daily. 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 Education: Pt completed high school and attended all four years graduating from [employer]. Community Follow-up PCP Community Provider/Family Inpu: Pt cousin/NANCY, Lucero Marks, is aware of pt's hospitalization and is available for further information should it be needed. Treatment Plan Explained Patient/Assistant County Engineer had this treatment plan explained to him/her as indicated by the signature below and has been given the opportunity to ask questions and make suggestions: Date: Patient/Assistant County Engineer Signature: Status Update Update Pt treatment team was held on 12/14/20 and entered today 12/15/20. Pt eats on average 80% of her meals and sleeps about 8 hours at night. She continues to be attention seeking; having periods of anxiety where she will repeatedly ask what she is to do next and when is the big room going to be opened. When staff provide her with answers or redirection, she accepts the answer for a few minutes, but then begins to repeatedly ask the same questions. Pt tends to isolate more in her room and recently when being called down for dinner, she de clines. She will occasionally attend groups and when she does, it is observed that she is fairly demanding. Luvox is being considered as is Zyprextova DÍAZN. Pt will return to [facility] once stable. BRITTANIE BEVERLY December 15, 2020 09:08
[2020-12-15 15:48] VITALS: BP 134/80
[2020-12-15] MEDS: QUEtiapine 50 MG TABLET. PO SCH (17:37)
[2020-12-15] MEDS: DONEPEZIL HCL 10 MG TABLET PO SCH (20:25)
[2020-12-15] MEDS: MELATONIN 3 MG TABLET PO SCH (20:26)
--- NOTE | 2020-12-16 01:29 | PN ---
DATE: 12/15/2020 DATE OF SERVICE: 12/15/2020 SUBJECTIVE: The patient was seen today, met with the staff. Chart reviewed and also covering for Dr. Black. The patient continues to be withdrawn and isolates herself. Staff reports no major behavior problems except for confusion. OBJECTIVE: VITAL SIGNS: Temperature 97.5, blood pressure 152/81, pulse 66, respirations 16, O2 sat 96%. Slept about 9 hours last night. LABORATORY DATA: The patient's lab reviewed. The patient's current medications remains the same and not having any side effects to medications. ASSESSMENT: Major neurocognitive disorder, vascular with delusions, depression and behavioral disturbances. PLAN: To continue with the treatment. LENGTH OF STAY: [address]: Dennis TID: [id number]
[2020-12-16 05:55] VITALS: BP 152/87
[2020-12-16] MEDS: MULTIVITAMIN with MINERAL TABLET. PO SCH (08:06)
[2020-12-16] MEDS: busPIRone 10 MG TABLET. PO SCH ×3 (08:06→19:59)
[2020-12-16] MEDS: FUROSEMIDE 20 MG TABLET PO SCH (08:06)
[2020-12-16] MEDS: NYSTATIN TOPICAL POWDER 15GM BOTTLE. TP SCH ×2 (08:06→19:58)
[2020-12-16] MEDS: SERTRALINE 25 MG TABLET. PO SCH (08:07)
[2020-12-16] MEDS: MEMANTINE 10 MG TABLET. PO SCH ×2 (08:07→19:59)
[2020-12-16] MEDS: QUEtiapine 25 MG TABLET. PO SCH ×2 (08:07→12:41)
[2020-12-16] MEDS: amLODIPine BESYLATE 5 MG TABLET PO SCH (08:08)
[2020-12-16 15:49] VITALS: BP 136/84
[2020-12-16] MEDS: QUEtiapine 50 MG TABLET. PO SCH (17:12)
[2020-12-16] MEDS: DONEPEZIL HCL 10 MG TABLET PO SCH (19:59)
[2020-12-16] MEDS: MELATONIN 3 MG TABLET PO SCH (20:00)
--- NOTE | 2020-12-17 01:50 | PN ---
DATE: 12/16/2020 SUBJECTIVE: The patient was seen today, met with the staff. Chart reviewed and also covering for Dr. Black. Staff reports no major behavior problems today except for getting anxious after the shower. She is redirectable. She continues to be withdrawn to her room and she is compliant with the medications and assessments. OBSERVATION: VITAL SIGNS: Temperature 97.4, blood pressure 152/87, pulse 64, respirations 18, O2 sat 95%. Slept about 7 hours last night. The patient's appetite is fair. LABORATORY DATA AND MEDICATIONS: Reviewed. Currently, not having any side effects. Not having any major physical complaints. ASSESSMENT: Major neurocognitive disorder, vascular with delusions, depression and behavioral disturbances. PLAN: To continue with the treatment. LENGTH OF STAY: 7 days. NIKKI/JOSSE/KIYA DR: NIKKI/tawnya TID: [id number]
[2020-12-17 06:02] VITALS: BP 147/87
[2020-12-17] MEDS: QUEtiapine 25 MG TABLET. PO SCH ×2 (08:29→12:38)
[2020-12-17] MEDS: SERTRALINE 25 MG TABLET. PO SCH (08:29)
[2020-12-17] MEDS: MEMANTINE 10 MG TABLET. PO SCH ×2 (08:29→20:48)
[2020-12-17] MEDS: MULTIVITAMIN with MINERAL TABLET. PO SCH (08:29)
[2020-12-17] MEDS: busPIRone 10 MG TABLET. PO SCH ×3 (08:29→20:48)
[2020-12-17] MEDS: amLODIPine BESYLATE 5 MG TABLET PO SCH (08:30)
[2020-12-17] MEDS: NYSTATIN TOPICAL POWDER 15GM BOTTLE. TP SCH ×2 (08:30→20:45)
[2020-12-17] MEDS: FUROSEMIDE 20 MG TABLET PO SCH (08:30)
[2020-12-17 15:59] VITALS: BP 135/84
[2020-12-17] MEDS: QUEtiapine 50 MG TABLET. PO SCH (17:40)
[2020-12-17] MEDS: DONEPEZIL HCL 10 MG TABLET PO SCH (20:48)
[2020-12-17] MEDS: MELATONIN 3 MG TABLET PO SCH (20:48)
--- NOTE | 2020-12-17 23:08 | PN ---
DATE: 12/17/2020 DATE OF SERVICE: 12/17/2020. SUBJECTIVE: The patient was seen today, met with the staff, chart reviewed. Staff reports the patient is compliant with the medication and assessments, stays in her room most of the time, has not presented with any major behavior problems. OBSERVATION: PHYSICAL EXAMINATION: VITAL SIGNS: Temperature 97.9, blood pressure 147/87, pulse 68, respirations 16, O2 sat 94%. Slept about 9 hours last night. The patient's appetite is fair. The patient's medication reviewed. She is not having any side effects. I also reviewed the patient's labs. ASSESSMENT: Major neurocognitive disorder, vascular with the delusions, depression and behavioral disturbances. PLAN: To continue with the treatment. LENGTH OF STAY: [address] T [address]: Dennis TID: [id number]
[2020-12-18 05:55] VITALS: BP 163/94
[2020-12-18] MEDS: SERTRALINE 25 MG TABLET. PO SCH (08:05)
[2020-12-18] MEDS: busPIRone 10 MG TABLET. PO SCH ×3 (08:05→20:22)
[2020-12-18] MEDS: amLODIPine BESYLATE 5 MG TABLET PO SCH (08:05)
[2020-12-18] MEDS: MEMANTINE 10 MG TABLET. PO SCH ×2 (08:05→20:22)
[2020-12-18] MEDS: MULTIVITAMIN with MINERAL TABLET. PO SCH (08:05)
[2020-12-18] MEDS: QUEtiapine 25 MG TABLET. PO SCH ×2 (08:05→12:37)
[2020-12-18] MEDS: FUROSEMIDE 20 MG TABLET PO SCH (08:06)
[2020-12-18] MEDS: NYSTATIN TOPICAL POWDER 15GM BOTTLE. TP SCH ×2 (08:06→20:22)
[2020-12-18 15:50] VITALS: BP 135/78
[2020-12-18] MEDS: QUEtiapine 50 MG TABLET. PO SCH (17:38)
[2020-12-18] MEDS: DONEPEZIL HCL 10 MG TABLET PO SCH (20:22)
[2020-12-18] MEDS: MELATONIN 3 MG TABLET PO SCH (20:22)
--- NOTE | 2020-12-19 03:04 | PN ---
DATE: 12/18/2020 SUBJECTIVE: The patient was seen today, met with the staff, chart reviewed and also covering for Dr. Black. Also participated in the treatment review meeting. Staff reports that she is still withdrawn to her room, compliant with the medication and assessment. No major behavior problems. OBSERVATION: VITAL SIGNS: Temperature 97.9, blood pressure 163/96, pulse 91, respirations 18, O2 sat 95%. GENERAL: Slept about 9 hours last night. The patient's appetite is fair. MEDICATIONS: The patient's medications reviewed. She is not having any side effects. LABORATORY DATA: The patient's lab reviewed. ASSESSMENT: Major neurocognitive disorder, vascular with delusions, depression and behavioral disturbances. PLAN: To continue with the treatment. LENGTH OF STAY: Seven days. FAN DR: Dennis TID: [id number]
[2020-12-19 06:04] VITALS: BP 160/84
[2020-12-19] MEDS: busPIRone 10 MG TABLET. PO SCH ×3 (08:10→20:55)
[2020-12-19] MEDS: QUEtiapine 25 MG TABLET. PO SCH ×2 (08:10→12:30)
[2020-12-19] MEDS: SERTRALINE 25 MG TABLET. PO SCH (08:11)
[2020-12-19] MEDS: FUROSEMIDE 20 MG TABLET PO SCH (08:12)
[2020-12-19] MEDS: amLODIPine BESYLATE 5 MG TABLET PO SCH (08:12)
[2020-12-19] MEDS: MEMANTINE 10 MG TABLET. PO SCH ×2 (08:12→20:55)
[2020-12-19] MEDS: MULTIVITAMIN with MINERAL TABLET. PO SCH (08:15)
[2020-12-19] MEDS: NYSTATIN TOPICAL POWDER 15GM BOTTLE. TP SCH ×2 (09:00→21:00)
[2020-12-19 16:00] VITALS: BP 134/76
[2020-12-19] MEDS: QUEtiapine 50 MG TABLET. PO SCH (17:22)
[2020-12-19] MEDS: MELATONIN 3 MG TABLET PO SCH (20:54)
[2020-12-19] MEDS: DONEPEZIL HCL 10 MG TABLET PO SCH (20:55)
[2020-12-20 05:50] VITALS: BP 157/88
[2020-12-20] MEDS: SERTRALINE 25 MG TABLET. PO SCH (08:18)
[2020-12-20] MEDS: FUROSEMIDE 20 MG TABLET PO SCH (08:19)
[2020-12-20] MEDS: MEMANTINE 10 MG TABLET. PO SCH ×2 (08:19→20:22)
[2020-12-20] MEDS: amLODIPine BESYLATE 5 MG TABLET PO SCH (08:19)
[2020-12-20] MEDS: busPIRone 10 MG TABLET. PO SCH ×3 (08:19→20:23)
[2020-12-20] MEDS: QUEtiapine 25 MG TABLET. PO SCH ×2 (08:19→14:39)
[2020-12-20] MEDS: MULTIVITAMIN with MINERAL TABLET. PO SCH (08:19)
[2020-12-20] MEDS: NYSTATIN TOPICAL POWDER 15GM BOTTLE. TP SCH ×2 (09:00→20:23)
[2020-12-20 16:04] VITALS: BP 156/80
[2020-12-20] MEDS: QUEtiapine 50 MG TABLET. PO SCH (18:22)
[2020-12-20] MEDS: CHOLECALCIFEROL (VITAMIN D3) 50,000 UNIT CAPSULE PO SCH (18:22)
[2020-12-20] MEDS: MELATONIN 3 MG TABLET PO SCH (20:23)
[2020-12-20] MEDS: DONEPEZIL HCL 10 MG TABLET PO SCH (20:23)
--- NOTE | 2020-12-21 00:33 | PN ---
DATE: 12/19/2020 This is a late entry for the service date 12/19/2020. SUBJECTIVE: The patient was seen by Telehealth, discussed with the staff. The patient's chart was reviewed. The patient apparently not presenting with treatment any major behavior problems. She tends to withdraw to her room, compliant with the medications. OBSERVATION: Vital signs stable. The patient's appetite improved. The patient is not having any medical complaints. LABORATORY DATA: Reviewed. ASSESSMENT: Major neurocognitive disorder, vascular with delusions, depression, behavioral disturbances. PLAN: To continue with the treatment. LENGTH OF STAY: Seven days. MEGNA DR: Dennis TID: [phone]
[2020-12-21 05:42] VITALS: BP 150/84
[2020-12-21] MEDS: QUEtiapine 25 MG TABLET. PO SCH ×2 (08:42→12:00)
[2020-12-21] MEDS: SERTRALINE 25 MG TABLET. PO SCH (08:42)
[2020-12-21] MEDS: FUROSEMIDE 20 MG TABLET PO SCH (08:43)
[2020-12-21] MEDS: MEMANTINE 10 MG TABLET. PO SCH ×2 (08:43→20:27)
[2020-12-21] MEDS: MULTIVITAMIN with MINERAL TABLET. PO SCH (08:43)
[2020-12-21] MEDS: busPIRone 10 MG TABLET. PO SCH ×3 (08:43→20:28)
[2020-12-21] MEDS: amLODIPine BESYLATE 5 MG TABLET PO SCH (08:43)
[2020-12-21] MEDS: NYSTATIN TOPICAL POWDER 15GM BOTTLE. TP SCH ×2 (09:00→20:28)
--- NOTE | 2020-12-21 14:34 | TX PLAN ---
Interdisciplinary Tx Plan Admission Information Nov 29, 2020 at 17:18 Legal Status (on Admission): Voluntary DPOA/Guardian Name: Lucero Marks-Cousin Contact Phone Number: (Cell-DO NOT LEAVE MESSAGE ON CELL) [phone] (Home- CAN LEAVE MESSAGE O Other Contact Name: Priya Melgar Other Contact Phone: (Cell) [phone] (Office)[phone] Verified Code Status: DNR Allergies: Coded Allergies: No Known Drug Allergies (Unverified , 11/29/20) Diagnoses Primary Diagnosis: (1) Major neurocognitive disorder (2) Anxiety disorder, unspecified (3) Impulse control disorder, unspecified Reasons for Admission: Aggressive, Agitated, Angry, Combative, Confusion/Disoriented Problem in Patient's Words: Per Lucero, pt has been angry and aggressive toward staff at her facility. Lucero reports that about 8 to 9 months ago, pt was living with a female friend, Janessa, whom she lived with for a long time. Janessa called her and reported that Sharon was able to care for herself any longer and she was mean and aggressive toward her. Lucero stated that she had never known Sharon to mean towards others, but is wondering if she has some anger that is just part of her personality, but that it was hidden well when she was younger. Additional Admission Comments: Per intake record, pt was threatening to punch staff, combative with staff, yelling out, resists care, disrobing in public, cursing, spitting at staff, and name calling. Problems Active Problems: Agitation, aggressive, confusion, angry Inactive Problems: None at this time. Pt Strengths/Limitations Ability for [place]: Poor Cognitive Functioning/Ability: Fair Communication Skills/Ability: Fair Financial Resources: Fair Insight/Judgement: Poor Intellectual Ability: Fair Physical Health: Fair Social Skills: Fair Stability in Family: Good Stability in School/Work: Good Verbal Skills: Fair Discharge Criteria Discharge Criteria: No need for close observ., Adequate arrangements @DC, Verbal commit med comply, Improved behavior, Improved mood/thought Other Discharge Comments: None noted at this time. Preliminary Discharge Plan Preliminary DC Plan: Current Living Arrange. Special Precautions Fall Risk: High Initial D/C Plan Pt plan is to return to [facility]. Identified Discharge Needs: None known at this time. Currently Utilized Resources Currently Utilized Resources/P: PCP-Dr. Thai Velazco/NANCY-Lucero Albrechtney Facility-[facility] Referrals Community Resources: None noted at this time. Identified Problems/Hx/Goals Objectives/Short-Term Goals Short Term Goals: Control abnormal behavior, Dec. Aggression, Dec. Outbursts, Medication Stabilization, Monitor Med Effects, Promote Coping Skill Short Term Goals in Patient's: Pt to decrease aggressive/combative behaviors and be more cooperative with taking her medications and cares at her facility. Interventions/Frequency Staff Interventions/Frequency&: Psychiatry to assess pt three times per week for medication management. Nursing to assess behaivors, monitor medications, and complete 15 minute checks daily. Social work to see pt at least two times weekly to aid in return to placement. Activities to encourage pt to participate in group activities daily. 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 Education: Pt completed high school and attended all four years graduating from [employer]. Community Follow-up PCP Community Provider/Family Inpu: Pt cousin/NANCY, Lucero Marks, is aware of pt's hospitalization and is available for further information should it be needed. Treatment Plan Explained Patient/Program Supervisor had this treatment plan explained to him/her as indicated by the signature below and has been given the opportunity to ask questions and make suggestions: Date: Patient/Program Supervisor Signature: Status Update Update Pt has been averaging 7 hours of sleep and eating 80% of her meals. Pt is repetitive in asking attention seeking questions about what she is to do next. P t can become demanding with others. Pt is redirectable once told she needs to be nice. Pt is mostly medication compliant with a few times of resistance or questioning what they are for. Pt eventually takes meds with no further complications. Pt has not required PRNs for several days as she has been able to be redirected with minimal agitation. Pt will return to [facility] at time of d/c. BRITTANIE BEVERLY December 21, 2020 14:34
[2020-12-21 16:09] VITALS: BP 139/81
[2020-12-21] MEDS: QUEtiapine 50 MG TABLET. PO SCH (17:00)
[2020-12-21] MEDS: DONEPEZIL HCL 10 MG TABLET PO SCH (20:27)
[2020-12-21] MEDS: MELATONIN 3 MG TABLET PO SCH (20:27)
--- NOTE | 2020-12-21 22:18 | PN ---
DATE: 12/21/2020 SUBJECTIVE: The patient was seen today, met with the staff, chart reviewed, also participated in the treatment review meeting. The patient apparently restless, increased anxiety, rude to other residents, also making repetitive statements, apparently responded to p.r.n. medications. She did not receive any p.r.n. medications today. OBSERVATION: VITAL SIGNS: Temperature 97.8, blood pressure 139/81, pulse 71, respirations 18, O2 sat 94 percent. GENERAL: The patient's appetite improved. MEDICATIONS: The patient's medications reviewed and not having any side effects. LABORATORY DATA: The patient's lab reviewed. ASSESSMENT: Major neurocognitive disorder, vascular with delusion, depression and behavioral disturbances. PLAN: To continue with the treatment. LENGTH OF STAY: Seven days. FAN DR: Dennis TID: [id number]
[2020-12-22 06:05] VITALS: BP 148/77
[2020-12-22 06:32] LABS: BASO % 1 % (0-3); EOS # 0.3 x10^3/uL (0.0-0.7); EOS % 5 % (0-3); HEMATOCRIT 38.9 % (36.0-47.0); HEMOGLOBIN 12.9 g/dL (12.0-15.5); LYMPH # 1.1 x10^3/uL (1.0-4.8); LYMPH % 19 % (24-48); MEAN CORPUSCULAR HEMOGLOBIN 28 pg (25-35); MEAN CORPUSCULAR HGB CONC 33 g/dL (31-37); MEAN CORPUSCULAR VOLUME 84 fL (79-100); MONO # 0.6 x10^3/uL (0.0-1.1); MONO % 10 % (0-9); NEUT % 66 % (31-73); PLATELET COUNT 201 x10^3/uL (140-400); RED BLOOD COUNT 4.62 x10^6/uL (3.50-5.40); RED CELL DISTRIBUTION WIDTH 16.3 % (11.5-14.5); WHITE BLOOD COUNT 6.1 x10^3/uL (4.0-11.0)
[2020-12-22 06:55] LABS: ALBUMIN 3.2 g/dL (3.4-5.0); ALBUMIN/GLOBULIN RATIO 0.8 (1.0-1.7); CALCIUM 8.9 mg/dL (8.5-10.1); CREATININE 0.9 mg/dL (0.6-1.0); GFR 60.1; POTASSIUM 3.6 mmol/L (3.5-5.1); TOTAL BILIRUBIN 0.7 mg/dL (0.2-1.0); TOTAL PROTEIN 7.4 g/dL (6.4-8.2)
[2020-12-22] MEDS: busPIRone 10 MG TABLET. PO SCH ×3 (08:22→20:42)
[2020-12-22] MEDS: SERTRALINE 25 MG TABLET. PO SCH (08:22)
[2020-12-22] MEDS: MEMANTINE 10 MG TABLET. PO SCH ×2 (08:22→20:42)
[2020-12-22] MEDS: QUEtiapine 25 MG TABLET. PO SCH ×2 (08:23→11:57)
[2020-12-22] MEDS: MULTIVITAMIN with MINERAL TABLET. PO SCH (08:23)
[2020-12-22] MEDS: amLODIPine BESYLATE 5 MG TABLET PO SCH (08:23)
[2020-12-22] MEDS: FUROSEMIDE 20 MG TABLET PO SCH (08:23)
[2020-12-22] MEDS: NYSTATIN TOPICAL POWDER 15GM BOTTLE. TP SCH ×2 (08:27→20:41)
[2020-12-22 15:41] VITALS: BP 147/87
[2020-12-22] MEDS: QUEtiapine 50 MG TABLET. PO SCH (17:33)
[2020-12-22] MEDS: DONEPEZIL HCL 10 MG TABLET PO SCH (20:41)
[2020-12-22] MEDS: MELATONIN 3 MG TABLET PO SCH (20:42)
--- NOTE | 2020-12-22 23:51 | PN ---
DATE: 12/22/2020 SUBJECTIVE: The patient was seen today, met with the staff, chart reviewed. Staff reports that the patient has been cooperative and medication compliant, tend to become resistive at times and also argumentative with the staff. The patient tends to isolate herself most of the time. OBSERVATION: VITAL SIGNS: Temperature 97.6, blood pressure 148/77, pulse 65, respirations 16, O2 sat 95%. Slept about 9 hours last night. The patient's appetite is fair. CURRENT MEDICATIONS: The patient's medications reviewed and no major side effects. LABORATORY DATA: The patient's lab reviewed. ASSESSMENT: Major neurocognitive disorder, vascular with delusion, depression and behavioral disturbances. PLAN: To continue with treatment. LENGTH OF STAY: [address]: Dennis TID: [id number]
[2020-12-23 06:14] VITALS: BP 160/84
[2020-12-23] MEDS: SERTRALINE 25 MG TABLET. PO SCH (08:16)
[2020-12-23] MEDS: MEMANTINE 10 MG TABLET. PO SCH ×2 (08:16→20:38)
[2020-12-23] MEDS: QUEtiapine 25 MG TABLET. PO SCH ×2 (08:17→13:35)
[2020-12-23] MEDS: amLODIPine BESYLATE 5 MG TABLET PO SCH (08:17)
[2020-12-23] MEDS: NYSTATIN TOPICAL POWDER 15GM BOTTLE. TP SCH ×2 (08:18→20:39)
[2020-12-23] MEDS: MULTIVITAMIN with MINERAL TABLET. PO SCH (08:18)
[2020-12-23] MEDS: busPIRone 10 MG TABLET. PO SCH ×3 (08:18→20:39)
[2020-12-23] MEDS: FUROSEMIDE 20 MG TABLET PO SCH (08:19)
[2020-12-23 16:05] VITALS: BP 129/78
[2020-12-23] MEDS: QUEtiapine 50 MG TABLET. PO SCH (17:00)
[2020-12-23] MEDS: MELATONIN 3 MG TABLET PO SCH (20:39)
[2020-12-23] MEDS: DONEPEZIL HCL 10 MG TABLET PO SCH (20:39)
--- NOTE | 2020-12-23 23:00 | PN ---
DATE: 12/23/2020 SUBJECTIVE: The patient was seen today, met with the staff, chart was reviewed, and also covering for Dr. Black. Staff reports no major behavior problems except for confusion. She is much more calmer and also medication compliant. OBSERVATION: VITAL SIGNS: Temperature 97.7, blood pressure 160/84, pulse 66, respirations 16, O2 sat 95%. GENERAL: Slept about 9 hours last night. The patient's appetite is fair. The patient tends to stay in her room most of the time. The patient is not having any physical complaints and staff reports no falls. CURRENT MEDICATIONS: The patient's medications reviewed, not having any side effects. LABORATORY DATA: The patient's lab reviewed. ASSESSMENT: Major neurocognitive disorder, vascular with delusions, depression and behavioral disturbances. PLAN: To continue with the treatment. LENGTH OF STAY: Seven days. MEGAN DR: Dennis TID: [id number]
[2020-12-24 05:57] VITALS: BP 149/92
[2020-12-24] MEDS: FUROSEMIDE 20 MG TABLET PO SCH (08:01)
[2020-12-24] MEDS: QUEtiapine 25 MG TABLET. PO SCH ×2 (08:02→11:57)
[2020-12-24] MEDS: busPIRone 10 MG TABLET. PO SCH ×3 (08:03→20:42)
[2020-12-24] MEDS: MULTIVITAMIN with MINERAL TABLET. PO SCH (08:03)
[2020-12-24] MEDS: MEMANTINE 10 MG TABLET. PO SCH ×2 (08:03→20:42)
[2020-12-24] MEDS: NYSTATIN TOPICAL POWDER 15GM BOTTLE. TP SCH ×2 (08:03→20:42)
[2020-12-24] MEDS: SERTRALINE 25 MG TABLET. PO SCH (08:03)
[2020-12-24] MEDS: amLODIPine BESYLATE 5 MG TABLET PO SCH (08:03)
[2020-12-24 15:25] VITALS: BP 163/80
[2020-12-24] MEDS: QUEtiapine 50 MG TABLET. PO SCH (17:45)
[2020-12-24] MEDS: MELATONIN 3 MG TABLET PO SCH (20:42)
[2020-12-24] MEDS: DONEPEZIL HCL 10 MG TABLET PO SCH (20:42)
--- NOTE | 2020-12-25 00:52 | PN ---
DATE: 12/24/2020 SUBJECTIVE: The patient was seen today, met with the staff, chart reviewed. The patient's behavior continues to fluctuate, mostly confusion, but she is much calmer and medication compliant. OBSERVATION: VITAL SIGNS: Temperature 97.9, blood pressure 149/92, pulse 68, respirations 20, O2 sat 96%. GENERAL: Slept about 7 hours last night. The patient's appetite is fair. CURRENT MEDICATIONS: The patient's medications reviewed. Currently, not having any side effects. LABORATORY DATA: The patient's lab reviewed. ASSESSMENT: Major neurocognitive disorder, vascular with delusions, depression and behavioral disturbances. PLAN: To continue with the treatment. LENGTH OF STAY: Seven days. FAN DR: Dennis TID: [id number]
[2020-12-25 05:36] VITALS: BP 148/88
[2020-12-25] MEDS: amLODIPine BESYLATE 5 MG TABLET PO SCH (08:17)
[2020-12-25] MEDS: MEMANTINE 10 MG TABLET. PO SCH ×2 (08:17→19:56)
[2020-12-25] MEDS: busPIRone 10 MG TABLET. PO SCH ×3 (08:17→19:56)
[2020-12-25] MEDS: QUEtiapine 25 MG TABLET. PO SCH ×2 (08:17→14:22)
[2020-12-25] MEDS: MULTIVITAMIN with MINERAL TABLET. PO SCH (08:18)
[2020-12-25] MEDS: FUROSEMIDE 20 MG TABLET PO SCH (08:18)
[2020-12-25] MEDS: SERTRALINE 25 MG TABLET. PO SCH (08:18)
[2020-12-25] MEDS: NYSTATIN TOPICAL POWDER 15GM BOTTLE. TP SCH ×2 (08:21→19:56)
[2020-12-25 15:39] VITALS: BP 128/80
[2020-12-25] MEDS: QUEtiapine 50 MG TABLET. PO SCH (16:12)
[2020-12-25] MEDS: MELATONIN 3 MG TABLET PO SCH (19:56)
[2020-12-25] MEDS: DONEPEZIL HCL 10 MG TABLET PO SCH (19:56)
--- NOTE | 2020-12-25 21:54 | PDOC ---
Exam Note: Aki Note: Please also refer to the separate dictated note~for this date of service dictated separately.~Patient seen individually. Discussed the patient with Nursing staff reviewed the chart.~Reviewed interim history and current functioning. Reviewed vital signs,~Labs/ Radiology~and current medications noted below. Continue current treatment with the changes noted in the dictated addendum note Assessment: Vital Signs/I&O: Vital Signs Date Time Temp Pulse Resp B/P (MAP) Pulse Ox O2 Delivery O2 Flow Rate FiO2 12/25/20 15:39 98.4 68 18 128/80 (96) 93 12/24/20 05:57 Room Air I & O 12/24/20 12/24/20 12/25/20 15:00 23:00 07:00 Intake Total 450 ml 240 ml Balance 450 ml 240 ml Labs: Laboratory Tests Test 12/25/20 07:39 Glucose (Fingerstick) 134 mg/dL (70-99) H Current Medications: Meds: Laboratory Tests Test 12/25/20 07:39 Glucose (Fingerstick) 134 mg/dL Current Medications Medications (Trade) Dose Ordered Sig/Curt Route PRN Reason Start Time Stop Time Status Last Admin Dose Admin Acetaminophen (Tylenol) 650 mg PRN Q6HRS PRN PO MILD PAIN / TEMP > 100.3'F 11/29/20 18:00 Multi-Ingredient Ointment (Analgesic [place]) 1 bryant PRN QID PRN TP MUSCLE PAIN 11/29/20 18:00 Al Hydroxide/Mg Hydroxide (Mylanta Plus Xs) 15 ml PRN AFTMEALHC PRN PO DYSPEPSIA 11/29/20 18:00 Magnesium Hydroxide (Milk Of Magnesia) 2,400 mg PRN QHS PRN PO CONSTIPATION, 2ND CHOICE 11/29/20 18:00 12/22/20 20:41 Bisacodyl (Dulcolax Supp) 10 mg PRN DAILY PRN RC CONSTIPATION, 3RD CHOICE 11/29/20 18:15 Buspirone HCl (Buspar) 10 mg TID PO 11/29/20 21:00 12/25/20 19:56 Vitamin D (Vitamin D3) 50,000 unit QWE PO 12/06/20 16:00 12/20/20 18:22 Donepezil HCl (Aricept) 10 mg QHS PO 11/29/20 21:00 12/25/20 19:56 Furosemide (Lasix) 20 mg DAILY PO 11/30/20 09:00 12/25/20 08:18 Lorazepam (Ativan) 0.5 mg BID PO 11/29/20 21:00 11/30/20 22:44 DC 11/30/20 20:22 Memantine (Namenda) 10 mg BID PO 11/29/20 21:00 12/25/20 19:56 Sodium Biphosphate/ Sodium Phosphate (Fleet Adult) 133 ml PRN DAILY PRN RC CONSTIPATION, 4TH CHOICE 11/29/20 18:15 Polyethylene Glycol (miraLAX) 17 gm PRN DAILY PRN PO CONSTIPATION, 1ST CHOICE 11/29/20 18:15 Citalopram Hydrobromide (CeleXA) 20 mg DAILY PO 11/30/20 09:00 11/30/20 22:44 DC 11/30/20 12:32 Melatonin (Melatonin) 10.5 mg QHS PO 11/29/20 21:00 12/25/20 19:56 Multivitamins/ Calcium (Thera-M Plus) 1 tab DAILY PO 11/30/20 09:00 12/25/20 08:18 Lorazepam (Ativan) 0.25 mg BID PO 12/01/20 09:00 12/03/20 22:00 DC 12/03/20 20:16 Quetiapine Fumarate (SEROquel) 12.5 mg TIDWMEALS PO 12/01/20 08:00 12/02/20 16:12 DC 12/02/20 12:48 Sertraline HCl (Zoloft) 25 mg DAILY PO 12/01/20 09:00 12/02/20 16:00 DC 12/02/20 08:13 Sertraline HCl (Zoloft) 50 mg DAILY PO 12/04/20 09:00 12/02/20 16:00 DC Lorazepam (Ativan) 0.25 mg DAILY PO 12/04/20 09:00 12/06/20 21:00 DC 12/06/20 08:33 Nystatin (Nystop) 1 bryant BID TP 12/01/20 09:00 12/25/20 19:56 Sertraline HCl (Zoloft) 50 mg DAILY PO 12/03/20 09:00 12/02/20 16:10 DC Sertraline HCl (Zoloft) 25 mg DAILY PO 12/03/20 09:00 12/03/20 09:30 DC 12/03/20 07:46 Sertraline HCl (Zoloft) 50 mg DAILY PO 12/07/20 09:00 12/07/20 11:10 DC Quetiapine Fumarate (SEROquel) 25 mg 0900,1200 PO 12/03/20 09:00 12/07/20 11:10 DC 12/06/20 15:24 Quetiapine Fumarate (SEROquel) 50 mg 1700 PO 12/02/20 17:00 12/25/20 16:12 Sertraline HCl (Zoloft) 25 mg DAILY PO 12/04/20 09:00 12/06/20 21:00 DC 12/06/20 08:33 Sertraline HCl (Zoloft) 25 mg DAILY PO 12/07/20 09:00 Cancel Quetiapine Fumarate (SEROquel) 25 mg 1200 PO 12/07/20 12:00 12/25/20 14:22 Sertraline HCl (Zoloft) 75 mg DAILY PO 12/08/20 09:00 12/25/20 16:56 DC 12/25/20 08:18 Quetiapine Fumarate (SEROquel) 37.5 mg 0900 PO 12/08/20 09:00 12/25/20 08:17 Amlodipine Besylate (Norvasc) 5 mg DAILY PO 12/12/20 09:00 12/25/20 08:17 Quetiapine Fumarate (SEROquel) 25 mg PRN Q6HRS PRN PO agitation 12/14/20 17:00 12/15/20 23:11 Sertraline HCl (Zoloft) 100 mg DAILY PO 12/26/20 09:00 I have reviewed the current psychotropics carefully including drug interactions. Risk benefit ratio favors no change other than as noted in my dictated progress note. 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
[2020-12-26 05:41] VITALS: BP 147/88
[2020-12-26] MEDS: MULTIVITAMIN with MINERAL TABLET. PO SCH ×2 (08:19→08:23)
[2020-12-26] MEDS: MEMANTINE 10 MG TABLET. PO SCH ×2 (08:19→20:49)
[2020-12-26] MEDS: FUROSEMIDE 20 MG TABLET PO SCH (08:19)
[2020-12-26] MEDS: busPIRone 10 MG TABLET. PO SCH ×3 (08:19→20:49)
[2020-12-26] MEDS: amLODIPine BESYLATE 5 MG TABLET PO SCH (08:19)
[2020-12-26] MEDS: QUEtiapine 25 MG TABLET. PO SCH ×2 (08:20→12:11)
[2020-12-26] MEDS: NYSTATIN TOPICAL POWDER 15GM BOTTLE. TP SCH ×2 (08:21→20:49)
[2020-12-26] MEDS: SERTRALINE 100 MG TABLET. PO SCH (08:21)
[2020-12-26 15:40] VITALS: BP 143/65
[2020-12-26] MEDS: QUEtiapine 50 MG TABLET. PO SCH (17:53)
[2020-12-26] MEDS: DONEPEZIL HCL 10 MG TABLET PO SCH (20:49)
[2020-12-26] MEDS: MELATONIN 3 MG TABLET PO SCH (20:49)
--- NOTE | 2020-12-26 21:41 | PDOC ---
Exam Note: Aki Note: Please also refer to the separate dictated note~for this date of service dictated separately.~Patient seen individually. Discussed the patient with Nursing staff reviewed the chart.~Reviewed interim history and current functioning. Reviewed vital signs,~Labs/ Radiology~and current medications noted below. Continue current treatment with the changes noted in the dictated addendum note Assessment: Vital Signs/I&O: Vital Signs Date Time Temp Pulse Resp B/P (MAP) Pulse Ox O2 Delivery O2 Flow Rate FiO2 12/26/20 15:40 97.4 75 16 143/65 (91) 94 12/24/20 05:57 Room Air I & O 12/25/20 12/25/20 12/26/20 15:00 23:00 07:00 Intake Total 720 ml 600 ml Balance 720 ml 600 ml Labs: Laboratory Tests Test 12/26/20 07:18 Glucose (Fingerstick) 137 mg/dL (70-99) H Current Medications: Meds: Laboratory Tests Test 12/26/20 07:18 Glucose (Fingerstick) 137 mg/dL Current Medications Medications (Trade) Dose Ordered Sig/Curt Route PRN Reason Start Time Stop Time Status Last Admin Dose Admin Acetaminophen (Tylenol) 650 mg PRN Q6HRS PRN PO MILD PAIN / TEMP > 100.3'F 11/29/20 18:00 Multi-Ingredient Ointment (Analgesic [place]) 1 bryant PRN QID PRN TP MUSCLE PAIN 11/29/20 18:00 Al Hydroxide/Mg Hydroxide (Mylanta Plus Xs) 15 ml PRN AFTMEALHC PRN PO DYSPEPSIA 11/29/20 18:00 Magnesium Hydroxide (Milk Of Magnesia) 2,400 mg PRN QHS PRN PO CONSTIPATION, 2ND CHOICE 11/29/20 18:00 12/22/20 20:41 Bisacodyl (Dulcolax Supp) 10 mg PRN DAILY PRN RC CONSTIPATION, 3RD CHOICE 11/29/20 18:15 Buspirone HCl (Buspar) 10 mg TID PO 11/29/20 21:00 12/26/20 20:49 Vitamin D (Vitamin D3) 50,000 unit QWE PO 12/06/20 16:00 12/20/20 18:22 Donepezil HCl (Aricept) 10 mg QHS PO 11/29/20 21:00 12/26/20 20:49 Furosemide (Lasix) 20 mg DAILY PO 11/30/20 09:00 12/26/20 08:19 Lorazepam (Ativan) 0.5 mg BID PO 11/29/20 21:00 11/30/20 22:44 DC 11/30/20 20:22 Memantine (Namenda) 10 mg BID PO 11/29/20 21:00 12/26/20 20:49 Sodium Biphosphate/ Sodium Phosphate (Fleet Adult) 133 ml PRN DAILY PRN RC CONSTIPATION, 4TH CHOICE 11/29/20 18:15 Polyethylene Glycol (miraLAX) 17 gm PRN DAILY PRN PO CONSTIPATION, 1ST CHOICE 11/29/20 18:15 Citalopram Hydrobromide (CeleXA) 20 mg DAILY PO 11/30/20 09:00 11/30/20 22:44 DC 11/30/20 12:32 Melatonin (Melatonin) 10.5 mg QHS PO 11/29/20 21:00 12/26/20 20:49 Multivitamins/ Calcium (Thera-M Plus) 1 tab DAILY PO 11/30/20 09:00 12/25/20 08:18 Lorazepam (Ativan) 0.25 mg BID PO 12/01/20 09:00 12/03/20 22:00 DC 12/03/20 20:16 Quetiapine Fumarate (SEROquel) 12.5 mg TIDWMEALS PO 12/01/20 08:00 12/02/20 16:12 DC 12/02/20 12:48 Sertraline HCl (Zoloft) 25 mg DAILY PO 12/01/20 09:00 12/02/20 16:00 DC 12/02/20 08:13 Sertraline HCl (Zoloft) 50 mg DAILY PO 12/04/20 09:00 12/02/20 16:00 DC Lorazepam (Ativan) 0.25 mg DAILY PO 12/04/20 09:00 12/06/20 21:00 DC 12/06/20 08:33 Nystatin (Nystop) 1 bryatn BID TP 12/01/20 09:00 12/26/20 20:49 Sertraline HCl (Zoloft) 50 mg DAILY PO 12/03/20 09:00 12/02/20 16:10 DC Sertraline HCl (Zoloft) 25 mg DAILY PO 12/03/20 09:00 12/03/20 09:30 DC 12/03/20 07:46 Sertraline HCl (Zoloft) 50 mg DAILY PO 12/07/20 09:00 12/07/20 11:10 DC Quetiapine Fumarate (SEROquel) 25 mg 0900,1200 PO 12/03/20 09:00 12/07/20 11:10 DC 12/06/20 15:24 Quetiapine Fumarate (SEROquel) 50 mg 1700 PO 12/02/20 17:00 12/26/20 17:53 Sertraline HCl (Zoloft) 25 mg DAILY PO 12/04/20 09:00 12/06/20 21:00 DC 12/06/20 08:33 Sertraline HCl (Zoloft) 25 mg DAILY PO 12/07/20 09:00 Cancel Quetiapine Fumarate (SEROquel) 25 mg 1200 PO 12/07/20 12:00 12/26/20 12:11 Sertraline HCl (Zoloft) 75 mg DAILY PO 12/08/20 09:00 12/25/20 16:56 DC 12/25/20 08:18 Quetiapine Fumarate (SEROquel) 37.5 mg 0900 PO 12/08/20 09:00 12/26/20 08:20 Amlodipine Besylate (Norvasc) 5 mg DAILY PO 12/12/20 09:00 12/26/20 08:19 Quetiapine Fumarate (SEROquel) 25 mg PRN Q6HRS PRN PO agitation 12/14/20 17:00 12/15/20 23:11 Sertraline HCl (Zoloft) 100 mg DAILY PO 12/26/20 09:00 12/26/20 08:21 Current Medications Medications (Trade) Dose Ordered Sig/Curt Route PRN Reason Start Time Stop Time Status Last Admin Dose Admin Sertraline HCl (Zoloft) 100 mg DAILY PO 12/26/20 09:00 12/26/20 08:21 I have reviewed the current psychotropics carefully including drug interactions. Risk benefit ratio favors no change other than as noted in my dictated progress note. Diagnosis: Problems: (1) Impulse control disorder, unspecified (2) Anxiety disorder, unspecified (3) Major neurocognitive disorder (4) Dementia, vascular, with depression (5) Dementia, vascular, with delusions (6) Dementia in Alzheimer's disease with depression (7) Dementia in Alzheimer's disease with delusions (8) Dementia of the Alzheimer's type with early onset with behavioral disturbance MADHURI SHAW MD December 26, 2020 21:41
[2020-12-27 05:28] VITALS: BP 118/69
--- NOTE | 2020-12-27 07:24 | PDOC ---
Exam Note: Aki Note: This note is a late entry for 12/08/2020 covers elements not covered in my initial note. Subjective: This note was initially completed on 12/08/2020 but cannot be retrieved in the electronic medical system and is being re-dictated today 12/26/2020. The patient was seen individually in the evening of 12/08/2020 with Karen STEWART, discussed and reviewed the chart. The patient has spent much time in bed, has been otherwise pleasant, confused, not combative. Review of Systems: No CV, , pulmonary, eye system symptoms on review. Mental Status Exam: The patient is oriented to herself. Insight and judgment, recent and remote memory, attention and concentration, fund of knowledge is poor consistent with her diagnoses. No suicidal or homicidal ideation. Laboratory Data: Reviewed. Impression: Major neurocognitive disorder Alzheimer vascular with delusion, depression, behavioral disturbance. Impulse control disorder unspecified. Anxiety disorder unspecified. Plan: The patient is on BuSpar, Aricept, Seroquel, melatonin, Namenda, and Zoloft. Depending on her progress, mood and anxiety symptoms, we may need to increase Zoloft in due course. Dr. Platt will cover for me starting from 2020 at 8 a.m. till 12/24/2020 at 8 p.m. Assessment: Vital Signs/I&O: Vital Signs Date Time Temp Pulse Resp B/P (MAP) Pulse Ox O2 Delivery O2 Flow Rate FiO2 12/27/20 05:28 97.6 69 16 118/69 (85) 97 Room Air I & O 12/26/20 12/26/20 12/27/20 15:00 23:00 07:00 Intake Total 720 ml 120 ml Balance 720 ml 120 ml Current Medications: Meds: Current Medications Medications (Trade) Dose Ordered Sig/Curt Route PRN Reason Start Time Stop Time Status Last Admin Dose Admin Acetaminophen (Tylenol) 650 mg PRN Q6HRS PRN PO MILD PAIN / TEMP > 100.3'F 11/29/20 18:00 Multi-Ingredient Ointment (Analgesic [place]) 1 bryant PRN QID PRN TP MUSCLE PAIN 11/29/20 18:00 Al Hydroxide/Mg Hydroxide (Mylanta Plus Xs) 15 ml PRN AFTMEALHC PRN PO DYSPEPSIA 11/29/20 18:00 Magnesium Hydroxide (Milk Of Magnesia) 2,400 mg PRN QHS PRN PO CONSTIPATION, 2ND CHOICE 11/29/20 18:00 12/22/20 20:41 Bisacodyl (Dulcolax Supp) 10 mg PRN DAILY PRN RC CONSTIPATION, 3RD CHOICE 11/29/20 18:15 Buspirone HCl (Buspar) 10 mg TID PO 11/29/20 21:00 12/26/20 20:49 Vitamin D (Vitamin D3) 50,000 unit QWE PO 12/06/20 16:00 12/20/20 18:22 Donepezil HCl (Aricept) 10 mg QHS PO 11/29/20 21:00 12/26/20 20:49 Furosemide (Lasix) 20 mg DAILY PO 11/30/20 09:00 12/26/20 08:19 Lorazepam (Ativan) 0.5 mg BID PO 11/29/20 21:00 11/30/20 22:44 DC 11/30/20 20:22 Memantine (Namenda) 10 mg BID PO 11/29/20 21:00 12/26/20 20:49 Sodium Biphosphate/ Sodium Phosphate (Fleet Adult) 133 ml PRN DAILY PRN RC CONSTIPATION, 4TH CHOICE 11/29/20 18:15 Polyethylene Glycol (miraLAX) 17 gm PRN DAILY PRN PO CONSTIPATION, 1ST CHOICE 11/29/20 18:15 Citalopram Hydrobromide (CeleXA) 20 mg DAILY PO 11/30/20 09:00 11/30/20 22:44 DC 11/30/20 12:32 Melatonin (Melatonin) 10.5 mg QHS PO 11/29/20 21:00 12/26/20 20:49 Multivitamins/ Calcium (Thera-M Plus) 1 tab DAILY PO 11/30/20 09:00 12/25/20 08:18 Lorazepam (Ativan) 0.25 mg BID PO 12/01/20 09:00 12/03/20 22:00 DC 12/03/20 20:16 Quetiapine Fumarate (SEROquel) 12.5 mg TIDWMEALS PO 12/01/20 08:00 12/02/20 16:12 DC 12/02/20 12:48 Sertraline HCl (Zoloft) 25 mg DAILY PO 12/01/20 09:00 12/02/20 16:00 DC 12/02/20 08:13 Sertraline HCl (Zoloft) 50 mg DAILY PO 12/04/20 09:00 12/02/20 16:00 DC Lorazepam (Ativan) 0.25 mg DAILY PO 12/04/20 09:00 12/06/20 21:00 DC 12/06/20 08:33 Nystatin (Nystop) 1 bryant BID TP 12/01/20 09:00 12/26/20 20:49 Sertraline HCl (Zoloft) 50 mg DAILY PO 12/03/20 09:00 12/02/20 16:10 DC Sertraline HCl (Zoloft) 25 mg DAILY PO 12/03/20 09:00 12/03/20 09:30 DC 12/03/20 07:46 Sertraline HCl (Zoloft) 50 mg DAILY PO 12/07/20 09:00 12/07/20 11:10 DC Quetiapine Fumarate (SEROquel) 25 mg 0900,1200 PO 12/03/20 09:00 12/07/20 11:10 DC 12/06/20 15:24 Quetiapine Fumarate (SEROquel) 50 mg 1700 PO 12/02/20 17:00 12/26/20 17:53 Sertraline HCl (Zoloft) 25 mg DAILY PO 12/04/20 09:00 12/06/20 21:00 DC 12/06/20 08:33 Sertraline HCl (Zoloft) 25 mg DAILY PO 12/07/20 09:00 Cancel Quetiapine Fumarate (SEROquel) 25 mg 1200 PO 12/07/20 12:00 12/26/20 12:11 Sertraline HCl (Zoloft) 75 mg DAILY PO 12/08/20 09:00 12/25/20 16:56 DC 12/25/20 08:18 Quetiapine Fumarate (SEROquel) 37.5 mg 0900 PO 12/08/20 09:00 12/26/20 08:20 Amlodipine Besylate (Norvasc) 5 mg DAILY PO 12/12/20 09:00 12/26/20 08:19 Quetiapine Fumarate (SEROquel) 25 mg PRN Q6HRS PRN PO agitation 12/14/20 17:00 12/15/20 23:11 Sertraline HCl (Zoloft) 100 mg DAILY PO 12/26/20 09:00 12/26/20 08:21 Current Medications Medications (Trade) Dose Ordered Sig/Curt Route PRN Reason Start Time Stop Time Status Last Admin Dose Admin Sertraline HCl (Zoloft) 100 mg DAILY PO 12/26/20 09:00 12/26/20 08:21 I have reviewed the current psychotropics carefully including drug interactions. Risk benefit ratio favors no change other than as noted in my dictated progress note. Diagnosis: Problems: (1) Impulse control disorder, unspecified (2) Anxiety disorder, unspecified (3) Major neurocognitive disorder (4) Dementia, vascular, with depression (5) Dementia, vascular, with delusions (6) Dementia in Alzheimer's disease with depression (7) Dementia in Alzheimer's disease with delusions (8) Dementia of the Alzheimer's type with early onset with behavioral disturbance MADHURI SHAW MD December 27, 2020 07:24
[2020-12-27] MEDS: amLODIPine BESYLATE 5 MG TABLET PO SCH (08:14)
[2020-12-27] MEDS: MEMANTINE 10 MG TABLET. PO SCH ×2 (08:15→20:27)
[2020-12-27] MEDS: MULTIVITAMIN with MINERAL TABLET. PO SCH (08:15)
[2020-12-27] MEDS: QUEtiapine 25 MG TABLET. PO SCH ×2 (08:15→12:11)
[2020-12-27] MEDS: SERTRALINE 100 MG TABLET. PO SCH (08:15)
[2020-12-27] MEDS: busPIRone 10 MG TABLET. PO SCH ×3 (08:16→20:28)
[2020-12-27] MEDS: NYSTATIN TOPICAL POWDER 15GM BOTTLE. TP SCH ×2 (08:16→20:27)
[2020-12-27] MEDS: FUROSEMIDE 20 MG TABLET PO SCH (08:16)
--- NOTE | 2020-12-27 08:18 | PDOC ---
Exam Note: Aki Note: This note is a late entry for 12/25/2020 covers elements not covered in my initial note. Subjective: The patient was seen individually in the evening of 12/25/2020 with Katya STEWART, discussed and reviewed the chart. She slept 8-3/4 hours previous night. She is somewhat intrusive, repetitive in her verbalizations what do I do now, can I go to the dayroom, can I go back to bed? She has been agitated with another demented patient. She is compliant with medications. Review of Systems: She is quite hard of hearing. Impaired ambulation. No CV, , pulmonary, eye system symptoms on review. Mental Status Exam: The patient is alert and oriented to herself. Insight and judgment, recent memory is impaired, remote is better. Language function intact. Attention span is short. Mood and affect remains somewhat withdrawn, anxious, labile at times. Laboratory Data: Reviewed. Impression: Major neurocognitive disorder Alzheimer vascular with delusion, depression, behavioral disturbance. Anxiety disorder unspecified. Impulse control disorder unspecified. Plan: I have carefully reviewed the patients current psychotropics and reviewed information with Dr. Platt who had covered for me for the past 2 weeks. Assessment: Vital Signs/I&O: Vital Signs Date Time Temp Pulse Resp B/P (MAP) Pulse Ox O2 Delivery O2 Flow Rate FiO2 12/27/20 08:14 69 118/69 12/27/20 05:28 97.6 16 97 Room Air I & O 12/26/20 12/26/20 12/27/20 15:00 23:00 07:00 Intake Total 720 ml 120 ml Balance 720 ml 120 ml Labs: Laboratory Tests Test 12/27/20 08:14 Glucose (Fingerstick) 184 mg/dL (70-99) H Current Medications: Meds: Laboratory Tests Test 12/27/20 08:14 Glucose (Fingerstick) 184 mg/dL Current Medications Medications (Trade) Dose Ordered Sig/Curt Route PRN Reason Start Time Stop Time Status Last Admin Dose Admin Acetaminophen (Tylenol) 650 mg PRN Q6HRS PRN PO MILD PAIN / TEMP > 100.3'F 11/29/20 18:00 Multi-Ingredient Ointment (Analgesic [place]) 1 bryant PRN QID PRN TP MUSCLE PAIN 11/29/20 18:00 Al Hydroxide/Mg Hydroxide (Mylanta Plus Xs) 15 ml PRN AFTMEALHC PRN PO DYSPEPSIA 11/29/20 18:00 Magnesium Hydroxide (Milk Of Magnesia) 2,400 mg PRN QHS PRN PO CONSTIPATION, 2ND CHOICE 11/29/20 18:00 12/22/20 20:41 Bisacodyl (Dulcolax Supp) 10 mg PRN DAILY PRN RC CONSTIPATION, 3RD CHOICE 11/29/20 18:15 Buspirone HCl (Buspar) 10 mg TID PO 11/29/20 21:00 12/27/20 08:16 Vitamin D (Vitamin D3) 50,000 unit QWE PO 12/06/20 16:00 12/20/20 18:22 Donepezil HCl (Aricept) 10 mg QHS PO 11/29/20 21:00 12/26/20 20:49 Furosemide (Lasix) 20 mg DAILY PO 11/30/20 09:00 12/27/20 08:16 Lorazepam (Ativan) 0.5 mg BID PO 11/29/20 21:00 11/30/20 22:44 DC 11/30/20 20:22 Memantine (Namenda) 10 mg BID PO 11/29/20 21:00 12/27/20 08:15 Sodium Biphosphate/ Sodium Phosphate (Fleet Adult) 133 ml PRN DAILY PRN RC CONSTIPATION, 4TH CHOICE 11/29/20 18:15 Polyethylene Glycol (miraLAX) 17 gm PRN DAILY PRN PO CONSTIPATION, 1ST CHOICE 11/29/20 18:15 Citalopram Hydrobromide (CeleXA) 20 mg DAILY PO 11/30/20 09:00 11/30/20 22:44 DC 11/30/20 12:32 Melatonin (Melatonin) 10.5 mg QHS PO 11/29/20 21:00 12/26/20 20:49 Multivitamins/ Calcium (Thera-M Plus) 1 tab DAILY PO 11/30/20 09:00 12/27/20 08:15 Lorazepam (Ativan) 0.25 mg BID PO 12/01/20 09:00 12/03/20 22:00 DC 12/03/20 20:16 Quetiapine Fumarate (SEROquel) 12.5 mg TIDWMEALS PO 12/01/20 08:00 12/02/20 16:12 DC 12/02/20 12:48 Sertraline HCl (Zoloft) 25 mg DAILY PO 12/01/20 09:00 12/02/20 16:00 DC 12/02/20 08:13 Sertraline HCl (Zoloft) 50 mg DAILY PO 12/04/20 09:00 12/02/20 16:00 DC Lorazepam (Ativan) 0.25 mg DAILY PO 12/04/20 09:00 12/06/20 21:00 DC 12/06/20 08:33 Nystatin (Nystop) 1 bryant BID TP 12/01/20 09:00 12/27/20 08:16 Sertraline HCl (Zoloft) 50 mg DAILY PO 12/03/20 09:00 12/02/20 16:10 DC Sertraline HCl (Zoloft) 25 mg DAILY PO 12/03/20 09:00 12/03/20 09:30 DC 12/03/20 07:46 Sertraline HCl (Zoloft) 50 mg DAILY PO 12/07/20 09:00 12/07/20 11:10 DC Quetiapine Fumarate (SEROquel) 25 mg 0900,1200 PO 12/03/20 09:00 12/07/20 11:10 DC 12/06/20 15:24 Quetiapine Fumarate (SEROquel) 50 mg 1700 PO 12/02/20 17:00 12/26/20 17:53 Sertraline HCl (Zoloft) 25 mg DAILY PO 12/04/20 09:00 12/06/20 21:00 DC 12/06/20 08:33 Sertraline HCl (Zoloft) 25 mg DAILY PO 12/07/20 09:00 Cancel Quetiapine Fumarate (SEROquel) 25 mg 1200 PO 12/07/20 12:00 12/26/20 12:11 Sertraline HCl (Zoloft) 75 mg DAILY PO 12/08/20 09:00 12/25/20 16:56 DC 12/25/20 08:18 Quetiapine Fumarate (SEROquel) 37.5 mg 0900 PO 12/08/20 09:00 12/27/20 08:15 Amlodipine Besylate (Norvasc) 5 mg DAILY PO 12/12/20 09:00 12/27/20 08:14 Quetiapine Fumarate (SEROquel) 25 mg PRN Q6HRS PRN PO agitation 12/14/20 17:00 12/15/20 23:11 Sertraline HCl (Zoloft) 100 mg DAILY PO 12/26/20 09:00 12/27/20 08:15 Current Medications Medications (Trade) Dose Ordered Sig/Curt Route PRN Reason Start Time Stop Time Status Last Admin Dose Admin Sertraline HCl (Zoloft) 100 mg DAILY PO 12/26/20 09:00 12/27/20 08:15 I have reviewed the current psychotropics carefully including drug interactions. Risk benefit ratio favors no change other than as noted in my dictated progress note. Diagnosis: Problems: (1) Impulse control disorder, unspecified (2) Anxiety disorder, unspecified (3) Major neurocognitive disorder (4) Dementia, vascular, with depression (5) Dementia, vascular, with delusions (6) Dementia in Alzheimer's disease with depression (7) Dementia in Alzheimer's disease with delusions (8) Dementia of the Alzheimer's type with early onset with behavioral disturbance MADHURI SHAW MD December 27, 2020 08:18
--- NOTE | 2020-12-27 08:46 | PDOC ---
Exam Note: Aki Note: This note is a late entry for 12/26/2020 covers elements not covered in my initial note. Subjective: The patient was seen individually in the evening of 12/26/2020 with Karen STEWART, discussed and reviewed the chart. She slept 8 hours previous night. She has been calm. Short-term memory is impaired, less irritable. Review of Systems: She is hard of hearing. No CV, , pulmonary, eye system symptoms on review. Mental Status Exam: The patient is oriented to herself. Insight and judgment, recent and remote memory, attention and concentration, fund of knowledge is poor consistent with her diagnoses. Laboratory Data: Reviewed. Impression: Major neurocognitive disorder Alzheimer vascular with delusion, depression, behavioral disturbance. Impulse control disorder unspecified. Anxiety disorder unspecified. Plan: Continue psychotropics from initial note. Assessment: Vital Signs/I&O: Vital Signs Date Time Temp Pulse Resp B/P (MAP) Pulse Ox O2 Delivery O2 Flow Rate FiO2 12/27/20 08:14 69 118/69 12/27/20 05:28 97.6 16 97 Room Air I & O 12/26/20 12/26/20 12/27/20 14:59 22:59 06:59 Intake Total 720 ml 120 ml Balance 720 ml 120 ml Labs: Laboratory Tests Test 12/27/20 08:14 Glucose (Fingerstick) 184 mg/dL (70-99) H Current Medications: Meds: Laboratory Tests Test 12/27/20 08:14 Glucose (Fingerstick) 184 mg/dL Current Medications Medications (Trade) Dose Ordered Sig/Curt Route PRN Reason Start Time Stop Time Status Last Admin Dose Admin Acetaminophen (Tylenol) 650 mg PRN Q6HRS PRN PO MILD PAIN / TEMP > 100.3'F 11/29/20 18:00 Multi-Ingredient Ointment (Analgesic [place]) 1 bryant PRN QID PRN TP MUSCLE PAIN 11/29/20 18:00 Al Hydroxide/Mg Hydroxide (Mylanta Plus Xs) 15 ml PRN AFTMEALHC PRN PO DYSPEPSIA 11/29/20 18:00 Magnesium Hydroxide (Milk Of Magnesia) 2,400 mg PRN QHS PRN PO CONSTIPATION, 2ND CHOICE 11/29/20 18:00 12/22/20 20:41 Bisacodyl (Dulcolax Supp) 10 mg PRN DAILY PRN RC CONSTIPATION, 3RD CHOICE 11/29/20 18:15 Buspirone HCl (Buspar) 10 mg TID PO 11/29/20 21:00 12/27/20 08:16 Vitamin D (Vitamin D3) 50,000 unit QWE PO 12/06/20 16:00 12/20/20 18:22 Donepezil HCl (Aricept) 10 mg QHS PO 11/29/20 21:00 12/26/20 20:49 Furosemide (Lasix) 20 mg DAILY PO 11/30/20 09:00 12/27/20 08:16 Lorazepam (Ativan) 0.5 mg BID PO 11/29/20 21:00 11/30/20 22:44 DC 11/30/20 20:22 Memantine (Namenda) 10 mg BID PO 11/29/20 21:00 12/27/20 08:15 Sodium Biphosphate/ Sodium Phosphate (Fleet Adult) 133 ml PRN DAILY PRN RC CONSTIPATION, 4TH CHOICE 11/29/20 18:15 Polyethylene Glycol (miraLAX) 17 gm PRN DAILY PRN PO CONSTIPATION, 1ST CHOICE 11/29/20 18:15 Citalopram Hydrobromide (CeleXA) 20 mg DAILY PO 11/30/20 09:00 11/30/20 22:44 DC 11/30/20 12:32 Melatonin (Melatonin) 10.5 mg QHS PO 11/29/20 21:00 12/26/20 20:49 Multivitamins/ Calcium (Thera-M Plus) 1 tab DAILY PO 11/30/20 09:00 12/27/20 08:15 Lorazepam (Ativan) 0.25 mg BID PO 12/01/20 09:00 12/03/20 22:00 DC 12/03/20 20:16 Quetiapine Fumarate (SEROquel) 12.5 mg TIDWMEALS PO 12/01/20 08:00 12/02/20 16:12 DC 12/02/20 12:48 Sertraline HCl (Zoloft) 25 mg DAILY PO 12/01/20 09:00 12/02/20 16:00 DC 12/02/20 08:13 Sertraline HCl (Zoloft) 50 mg DAILY PO 12/04/20 09:00 12/02/20 16:00 DC Lorazepam (Ativan) 0.25 mg DAILY PO 12/04/20 09:00 12/06/20 21:00 DC 12/06/20 08:33 Nystatin (Nystop) 1 bryant BID TP 12/01/20 09:00 12/27/20 08:16 Sertraline HCl (Zoloft) 50 mg DAILY PO 12/03/20 09:00 12/02/20 16:10 DC Sertraline HCl (Zoloft) 25 mg DAILY PO 12/03/20 09:00 12/03/20 09:30 DC 12/03/20 07:46 Sertraline HCl (Zoloft) 50 mg DAILY PO 12/07/20 09:00 12/07/20 11:10 DC Quetiapine Fumarate (SEROquel) 25 mg 0900,1200 PO 12/03/20 09:00 12/07/20 11:10 DC 12/06/20 15:24 Quetiapine Fumarate (SEROquel) 50 mg 1700 PO 12/02/20 17:00 12/26/20 17:53 Sertraline HCl (Zoloft) 25 mg DAILY PO 12/04/20 09:00 12/06/20 21:00 DC 12/06/20 08:33 Sertraline HCl (Zoloft) 25 mg DAILY PO 12/07/20 09:00 Cancel Quetiapine Fumarate (SEROquel) 25 mg 1200 PO 12/07/20 12:00 12/26/20 12:11 Sertraline HCl (Zoloft) 75 mg DAILY PO 12/08/20 09:00 12/25/20 16:56 DC 12/25/20 08:18 Quetiapine Fumarate (SEROquel) 37.5 mg 0900 PO 12/08/20 09:00 12/27/20 08:15 Amlodipine Besylate (Norvasc) 5 mg DAILY PO 12/12/20 09:00 12/27/20 08:14 Quetiapine Fumarate (SEROquel) 25 mg PRN Q6HRS PRN PO agitation 12/14/20 17:00 12/15/20 23:11 Sertraline HCl (Zoloft) 100 mg DAILY PO 12/26/20 09:00 12/27/20 08:15 Current Medications Medications (Trade) Dose Ordered Sig/Curt Route PRN Reason Start Time Stop Time Status Last Admin Dose Admin Sertraline HCl (Zoloft) 100 mg DAILY PO 12/26/20 09:00 12/27/20 08:15 I have reviewed the current psychotropics carefully including drug interactions. Risk benefit ratio favors no change other than as noted in my dictated progress note. Diagnosis: Problems: (1) Impulse control disorder, unspecified (2) Anxiety disorder, unspecified (3) Major neurocognitive disorder (4) Dementia, vascular, with depression (5) Dementia, vascular, with delusions (6) Dementia in Alzheimer's disease with depression (7) Dementia in Alzheimer's disease with delusions (8) Dementia of the Alzheimer's type with early onset with behavioral disturbance MADHURI SHAW MD December 27, 2020 08:46
[2020-12-27 09:19] LABS: BASO % 0 % (0-3); EOS # 0.2 x10^3/uL (0.0-0.7); EOS % 2 % (0-3); HEMATOCRIT 41.6 % (36.0-47.0); HEMOGLOBIN 13.6 g/dL (12.0-15.5); LYMPH # 1.4 x10^3/uL (1.0-4.8); LYMPH % 12 % (24-48); MEAN CORPUSCULAR HEMOGLOBIN 28 pg (25-35); MEAN CORPUSCULAR HGB CONC 33 g/dL (31-37); MEAN CORPUSCULAR VOLUME 85 fL (79-100); MONO # 0.7 x10^3/uL (0.0-1.1); MONO % 6 % (0-9); NEUT # 9.7 x10^3uL (1.8-7.7); NEUT % 81 % (31-73); PLATELET COUNT 276 x10^3/uL (140-400); RED BLOOD COUNT 4.92 x10^6/uL (3.50-5.40); RED CELL DISTRIBUTION WIDTH 16.2 % (11.5-14.5); WHITE BLOOD COUNT 11.9 x10^3/uL (4.0-11.0)
[2020-12-27 09:44] LABS: ALBUMIN 3.5 g/dL (3.4-5.0); ALBUMIN/GLOBULIN RATIO 0.8 (1.0-1.7); CALCIUM 9.2 mg/dL (8.5-10.1); CREATININE 1.2 mg/dL (0.6-1.0); GFR 43.1; POTASSIUM 4.1 mmol/L (3.5-5.1); TOTAL BILIRUBIN 0.7 mg/dL (0.2-1.0)
[2020-12-27] MEDS: CHOLECALCIFEROL (VITAMIN D3) 50,000 UNIT CAPSULE PO SCH (14:11)
[2020-12-27 15:56] VITALS: BP 133/73
[2020-12-27] MEDS: QUEtiapine 50 MG TABLET. PO SCH (16:30)
[2020-12-27] MEDS: DONEPEZIL HCL 10 MG TABLET PO SCH (20:27)
[2020-12-27] MEDS: MELATONIN 3 MG TABLET PO SCH (20:28)
--- NOTE | 2020-12-27 22:05 | PDOC ---
Exam Note: Aki Note: Please also refer to the separate dictated note~for this date of service dictated separately.~Patient seen individually. Discussed the patient with Nursing staff reviewed the chart.~Reviewed interim history and current functioning. Reviewed vital signs,~Labs/ Radiology~and current medications noted below. Continue current treatment with the changes noted in the dictated addendum note Assessment: Vital Signs/I&O: Vital Signs Date Time Temp Pulse Resp B/P (MAP) Pulse Ox O2 Delivery O2 Flow Rate FiO2 12/27/20 15:56 97.9 73 18 133/73 (93) 97 12/27/20 05:28 Room Air I & O 12/26/20 12/26/20 12/27/20 15:00 23:00 07:00 Intake Total 720 ml 120 ml Balance 720 ml 120 ml Labs: Laboratory Tests Test 12/27/20 08:14 12/27/20 09:05 Glucose (Fingerstick) 184 mg/dL (70-99) H White Blood Count 11.9 x10^3/uL (4.0-11.0) H Red Blood Count 4.92 x10^6/uL (3.50-5.40) Hemoglobin 13.6 g/dL (12.0-15.5) Hematocrit 41.6 % (36.0-47.0) Mean Corpuscular Volume 85 fL (79-100) Mean Corpuscular Hemoglobin 28 pg (25-35) Mean Corpuscular Hemoglobin Concent 33 g/dL (31-37) Red Cell Distribution Width 16.2 % (11.5-14.5) H Platelet Count 276 x10^3/uL (140-400) Neutrophils (%) (Auto) 81 % (31-73) H Lymphocytes (%) (Auto) 12 % (24-48) L Monocytes (%) (Auto) 6 % (0-9) Eosinophils (%) (Auto) 2 % (0-3) Basophils (%) (Auto) 0 % (0-3) Neutrophils # (Auto) 9.7 x10^3uL (1.8-7.7) H Lymphocytes # (Auto) 1.4 x10^3/uL (1.0-4.8) Monocytes # (Auto) 0.7 x10^3/uL (0.0-1.1) Eosinophils # (Auto) 0.2 x10^3/uL (0.0-0.7) Basophils # (Auto) 0.0 x10^3/uL (0.0-0.2) Sodium Level 141 mmol/L (136-145) Potassium Level 4.1 mmol/L (3.5-5.1) Chloride Level 104 mmol/L (98-107) Carbon Dioxide Level 24 mmol/L (21-32) Anion Gap 13 (6-14) Blood Urea Nitrogen 23 mg/dL (7-20) H Creatinine 1.2 mg/dL (0.6-1.0) H Estimated GFR (Cockcroft-Gault) 43.1 BUN/Creatinine Ratio 19 (6-20) Glucose Level 227 mg/dL (70-99) H Calcium Level 9.2 mg/dL (8.5-10.1) Total Bilirubin 0.7 mg/dL (0.2-1.0) Aspartate Amino Transferase (AST) 18 U/L (15-37) Alanine Aminotransferase (ALT) 17 U/L (14-59) Alkaline Phosphatase 90 U/L (46-116) Total Protein 8.0 g/dL (6.4-8.2) Albumin 3.5 g/dL (3.4-5.0) Albumin/Globulin Ratio 0.8 (1.0-1.7) L Current Medications: Meds: Laboratory Tests Test 12/27/20 08:14 12/27/20 09:05 Glucose (Fingerstick) 184 mg/dL White Blood Count 11.9 x10^3/uL Red Blood Count 4.92 x10^6/uL Hemoglobin 13.6 g/dL Hematocrit 41.6 % Mean Corpuscular Volume 85 fL Mean Corpuscular Hemoglobin 28 pg Mean Corpuscular Hemoglobin Concent 33 g/dL Red Cell Distribution Width 16.2 % Platelet Count 276 x10^3/uL Neutrophils (%) (Auto) 81 % Lymphocytes (%) (Auto) 12 % Monocytes (%) (Auto) 6 % Eosinophils (%) (Auto) 2 % Basophils (%) (Auto) 0 % Neutrophils # (Auto) 9.7 x10^3uL Lymphocytes # (Auto) 1.4 x10^3/uL Monocytes # (Auto) 0.7 x10^3/uL Eosinophils # (Auto) 0.2 x10^3/uL Basophils # (Auto) 0.0 x10^3/uL Sodium Level 141 mmol/L Potassium Level 4.1 mmol/L Chloride Level 104 mmol/L Carbon Dioxide Level 24 mmol/L Anion Gap 13 Blood Urea Nitrogen 23 mg/dL Creatinine 1.2 mg/dL Estimated GFR (Cockcroft-Gault) 43.1 BUN/Creatinine Ratio 19 Glucose Level 227 mg/dL Calcium Level 9.2 mg/dL Total Bilirubin 0.7 mg/dL Aspartate Amino Transf (AST/SGOT) 18 U/L Alanine Aminotransferase (ALT/SGPT) 17 U/L Alkaline Phosphatase 90 U/L Total Protein 8.0 g/dL Albumin 3.5 g/dL Albumin/Globulin Ratio 0.8 Current Medications Medications (Trade) Dose Ordered Sig/Curt Route PRN Reason Start Time Stop Time Status Last Admin Dose Admin Acetaminophen (Tylenol) 650 mg PRN Q6HRS PRN PO MILD PAIN / TEMP > 100.3'F 11/29/20 18:00 Multi-Ingredient Ointment (Analgesic [place]) 1 bryant PRN QID PRN TP MUSCLE PAIN 11/29/20 18:00 Al Hydroxide/Mg Hydroxide (Mylanta Plus Xs) 15 ml PRN AFTMEALHC PRN PO DYSPEPSIA 11/29/20 18:00 Magnesium Hydroxide (Milk Of Magnesia) 2,400 mg PRN QHS PRN PO CONSTIPATION, 2ND CHOICE 11/29/20 18:00 12/22/20 20:41 Bisacodyl (Dulcolax Supp) 10 mg PRN DAILY PRN RC CONSTIPATION, 3RD CHOICE 11/29/20 18:15 Buspirone HCl (Buspar) 10 mg TID PO 11/29/20 21:00 12/27/20 20:28 Vitamin D (Vitamin D3) 50,000 unit QWE PO 12/06/20 16:00 12/27/20 14:11 Donepezil HCl (Aricept) 10 mg QHS PO 11/29/20 21:00 12/27/20 20:27 Furosemide (Lasix) 20 mg DAILY PO 11/30/20 09:00 12/27/20 08:16 Lorazepam (Ativan) 0.5 mg BID PO 11/29/20 21:00 11/30/20 22:44 DC 11/30/20 20:22 Memantine (Namenda) 10 mg BID PO 11/29/20 21:00 12/27/20 20:27 Sodium Biphosphate/ Sodium Phosphate (Fleet Adult) 133 ml PRN DAILY PRN RC CONSTIPATION, 4TH CHOICE 11/29/20 18:15 Polyethylene Glycol (miraLAX) 17 gm PRN DAILY PRN PO CONSTIPATION, 1ST CHOICE 11/29/20 18:15 Citalopram Hydrobromide (CeleXA) 20 mg DAILY PO 11/30/20 09:00 11/30/20 22:44 DC 11/30/20 12:32 Melatonin (Melatonin) 10.5 mg QHS PO 11/29/20 21:00 12/27/20 20:28 Multivitamins/ Calcium (Thera-M Plus) 1 tab DAILY PO 11/30/20 09:00 12/27/20 08:15 Lorazepam (Ativan) 0.25 mg BID PO 12/01/20 09:00 12/03/20 22:00 DC 12/03/20 20:16 Quetiapine Fumarate (SEROquel) 12.5 mg TIDWMEALS PO 12/01/20 08:00 12/02/20 16:12 DC 12/02/20 12:48 Sertraline HCl (Zoloft) 25 mg DAILY PO 12/01/20 09:00 12/02/20 16:00 DC 12/02/20 08:13 Sertraline HCl (Zoloft) 50 mg DAILY PO 12/04/20 09:00 12/02/20 16:00 DC Lorazepam (Ativan) 0.25 mg DAILY PO 12/04/20 09:00 12/06/20 21:00 DC 12/06/20 08:33 Nystatin (Nystop) 1 bryant BID TP 12/01/20 09:00 12/27/20 20:27 Sertraline HCl (Zoloft) 50 mg DAILY PO 12/03/20 09:00 12/02/20 16:10 DC Sertraline HCl (Zoloft) 25 mg DAILY PO 12/03/20 09:00 12/03/20 09:30 DC 12/03/20 07:46 Sertraline HCl (Zoloft) 50 mg DAILY PO 12/07/20 09:00 12/07/20 11:10 DC Quetiapine Fumarate (SEROquel) 25 mg 0900,1200 PO 12/03/20 09:00 12/07/20 11:10 DC 12/06/20 15:24 Quetiapine Fumarate (SEROquel) 50 mg 1700 PO 12/02/20 17:00 12/27/20 16:30 Sertraline HCl (Zoloft) 25 mg DAILY PO 12/04/20 09:00 12/06/20 21:00 DC 12/06/20 08:33 Sertraline HCl (Zoloft) 25 mg DAILY PO 12/07/20 09:00 Cancel Quetiapine Fumarate (SEROquel) 25 mg 1200 PO 12/07/20 12:00 12/27/20 12:11 Sertraline HCl (Zoloft) 75 mg DAILY PO 12/08/20 09:00 12/25/20 16:56 DC 12/25/20 08:18 Quetiapine Fumarate (SEROquel) 37.5 mg 0900 PO 12/08/20 09:00 12/27/20 08:15 Amlodipine Besylate (Norvasc) 5 mg DAILY PO 12/12/20 09:00 12/27/20 08:14 Quetiapine Fumarate (SEROquel) 25 mg PRN Q6HRS PRN PO agitation 12/14/20 17:00 12/15/20 23:11 Sertraline HCl (Zoloft) 100 mg DAILY PO 12/26/20 09:00 12/27/20 08:15 I have reviewed the current psychotropics carefully including drug interactions. Risk benefit ratio favors no change other than as noted in my dictated progress note. Diagnosis: Problems: (1) Impulse control disorder, unspecified (2) Anxiety disorder, unspecified (3) Major neurocognitive disorder (4) Dementia, vascular, with depression (5) Dementia, vascular, with delusions (6) Dementia in Alzheimer's disease with depression (7) Dementia in Alzheimer's disease with delusions (8) Dementia of the Alzheimer's type with early onset with behavioral disturbance MADHURI SHAW MD December 27, 2020 22:05
[2020-12-28] MEDS ORDERED: ACET325T21 PO (03:02)
[2020-12-28] MEDS ORDERED: MAG-115 PO (03:04)
[2020-12-28] MEDS ORDERED: MAGN24003 PO (03:05)
[2020-12-28] MEDS ORDERED: METH57CR17 TP (03:06)
[2020-12-28] MEDS ORDERED: NYST60PO TP (03:07)
[2020-12-28] MEDS ORDERED: QUET50TA5 PO ×2 (03:08→03:10)
[2020-12-28] MEDS ORDERED: QUET25TA5 PO ×2 (03:09→03:11)
[2020-12-28] MEDS ORDERED: SERT100T PO (03:12)
[2020-12-28] MEDS ORDERED: AMLO-186 PO (03:13)
[2020-12-28 06:10] VITALS: BP 147/83
--- NOTE | 2020-12-28 06:46 | PDOC ---
Exam Note: Aki Note: This note is a late entry for 12/27/2020 covers elements not covered in my initial note. Subjective: The patient was seen individually in the evening of 12/27/2020 with Félix STEWART, discussed and reviewed the chart. She slept 9-3/4 hours previous night. She remains withdrawn, slept through dinner. Review of Systems: She is hard of hearing. No CV, , pulmonary, eye system symptoms on review. Mental Status Exam: The patient is oriented to herself. Insight and judgment, recent and remote memory, attention and concentration, fund of knowledge is poor consistent with her diagnoses. Laboratory Data: Reviewed. Impression: Major neurocognitive disorder Alzheimer vascular with delusion, depression, behavioral disturbance. Impulse control disorder unspecified. Anxiety disorder unspecified. Plan: Continue psychotropics from initial note. Discharge back to the intermediate tomorrow. Assessment: Vital Signs/I&O: Vital Signs Date Time Temp Pulse Resp B/P (MAP) Pulse Ox O2 Delivery O2 Flow Rate FiO2 12/28/20 06:10 97.5 63 18 147/83 (104) 96 Room Air I & O 12/27/20 12/27/20 12/28/20 15:00 23:00 07:00 Intake Total 480 ml 360 ml Balance 480 ml 360 ml Labs: Laboratory Tests Test 12/27/20 08:14 12/27/20 09:05 Glucose (Fingerstick) 184 mg/dL (70-99) H White Blood Count 11.9 x10^3/uL (4.0-11.0) H Red Blood Count 4.92 x10^6/uL (3.50-5.40) Hemoglobin 13.6 g/dL (12.0-15.5) Hematocrit 41.6 % (36.0-47.0) Mean Corpuscular Volume 85 fL (79-100) Mean Corpuscular Hemoglobin 28 pg (25-35) Mean Corpuscular Hemoglobin Concent 33 g/dL (31-37) Red Cell Distribution Width 16.2 % (11.5-14.5) H Platelet Count 276 x10^3/uL (140-400) Neutrophils (%) (Auto) 81 % (31-73) H Lymphocytes (%) (Auto) 12 % (24-48) L Monocytes (%) (Auto) 6 % (0-9) Eosinophils (%) (Auto) 2 % (0-3) Basophils (%) (Auto) 0 % (0-3) Neutrophils # (Auto) 9.7 x10^3uL (1.8-7.7) H Lymphocytes # (Auto) 1.4 x10^3/uL (1.0-4.8) Monocytes # (Auto) 0.7 x10^3/uL (0.0-1.1) Eosinophils # (Auto) 0.2 x10^3/uL (0.0-0.7) Basophils # (Auto) 0.0 x10^3/uL (0.0-0.2) Sodium Level 141 mmol/L (136-145) Potassium Level 4.1 mmol/L (3.5-5.1) Chloride Level 104 mmol/L (98-107) Carbon Dioxide Level 24 mmol/L (21-32) Anion Gap 13 (6-14) Blood Urea Nitrogen 23 mg/dL (7-20) H Creatinine 1.2 mg/dL (0.6-1.0) H Estimated GFR (Cockcroft-Gault) 43.1 BUN/Creatinine Ratio 19 (6-20) Glucose Level 227 mg/dL (70-99) H Calcium Level 9.2 mg/dL (8.5-10.1) Total Bilirubin 0.7 mg/dL (0.2-1.0) Aspartate Amino Transferase (AST) 18 U/L (15-37) Alanine Aminotransferase (ALT) 17 U/L (14-59) Alkaline Phosphatase 90 U/L (46-116) Total Protein 8.0 g/dL (6.4-8.2) Albumin 3.5 g/dL (3.4-5.0) Albumin/Globulin Ratio 0.8 (1.0-1.7) L Current Medications: Meds: Laboratory Tests Test 12/27/20 08:14 12/27/20 09:05 Glucose (Fingerstick) 184 mg/dL White Blood Count 11.9 x10^3/uL Red Blood Count 4.92 x10^6/uL Hemoglobin 13.6 g/dL Hematocrit 41.6 % Mean Corpuscular Volume 85 fL Mean Corpuscular Hemoglobin 28 pg Mean Corpuscular Hemoglobin Concent 33 g/dL Red Cell Distribution Width 16.2 % Platelet Count 276 x10^3/uL Neutrophils (%) (Auto) 81 % Lymphocytes (%) (Auto) 12 % Monocytes (%) (Auto) 6 % Eosinophils (%) (Auto) 2 % Basophils (%) (Auto) 0 % Neutrophils # (Auto) 9.7 x10^3uL Lymphocytes # (Auto) 1.4 x10^3/uL Monocytes # (Auto) 0.7 x10^3/uL Eosinophils # (Auto) 0.2 x10^3/uL Basophils # (Auto) 0.0 x10^3/uL Sodium Level 141 mmol/L Potassium Level 4.1 mmol/L Chloride Level 104 mmol/L Carbon Dioxide Level 24 mmol/L Anion Gap 13 Blood Urea Nitrogen 23 mg/dL Creatinine 1.2 mg/dL Estimated GFR (Cockcroft-Gault) 43.1 BUN/Creatinine Ratio 19 Glucose Level 227 mg/dL Calcium Level 9.2 mg/dL Total Bilirubin 0.7 mg/dL Aspartate Amino Transf (AST/SGOT) 18 U/L Alanine Aminotransferase (ALT/SGPT) 17 U/L Alkaline Phosphatase 90 U/L Total Protein 8.0 g/dL Albumin 3.5 g/dL Albumin/Globulin Ratio 0.8 Current Medications Medications (Trade) Dose Ordered Sig/Curt Route PRN Reason Start Time Stop Time Status Last Admin Dose Admin Acetaminophen (Tylenol) 650 mg PRN Q6HRS PRN PO MILD PAIN / TEMP > 100.3'F 11/29/20 18:00 Multi-Ingredient Ointment (Analgesic [place]) 1 bryant PRN QID PRN TP MUSCLE PAIN 11/29/20 18:00 Al Hydroxide/Mg Hydroxide (Mylanta Plus Xs) 15 ml PRN AFTMEALHC PRN PO DYSPEPSIA 11/29/20 18:00 Magnesium Hydroxide (Milk Of Magnesia) 2,400 mg PRN QHS PRN PO CONSTIPATION, 2ND CHOICE 11/29/20 18:00 12/22/20 20:41 Bisacodyl (Dulcolax Supp) 10 mg PRN DAILY PRN RC CONSTIPATION, 3RD CHOICE 11/29/20 18:15 Buspirone HCl (Buspar) 10 mg TID PO 11/29/20 21:00 12/27/20 20:28 Vitamin D (Vitamin D3) 50,000 unit QWE PO 12/06/20 16:00 12/27/20 14:11 Donepezil HCl (Aricept) 10 mg QHS PO 11/29/20 21:00 12/27/20 20:27 Furosemide (Lasix) 20 mg DAILY PO 11/30/20 09:00 12/27/20 08:16 Lorazepam (Ativan) 0.5 mg BID PO 11/29/20 21:00 11/30/20 22:44 DC 11/30/20 20:22 Memantine (Namenda) 10 mg BID PO 11/29/20 21:00 12/27/20 20:27 Sodium Biphosphate/ Sodium Phosphate (Fleet Adult) 133 ml PRN DAILY PRN RC CONSTIPATION, 4TH CHOICE 11/29/20 18:15 Polyethylene Glycol (miraLAX) 17 gm PRN DAILY PRN PO CONSTIPATION, 1ST CHOICE 11/29/20 18:15 Citalopram Hydrobromide (CeleXA) 20 mg DAILY PO 11/30/20 09:00 11/30/20 22:44 DC 11/30/20 12:32 Melatonin (Melatonin) 10.5 mg QHS PO 11/29/20 21:00 12/27/20 20:28 Multivitamins/ Calcium (Thera-M Plus) 1 tab DAILY PO 11/30/20 09:00 12/27/20 08:15 Lorazepam (Ativan) 0.25 mg BID PO 12/01/20 09:00 12/03/20 22:00 DC 12/03/20 20:16 Quetiapine Fumarate (SEROquel) 12.5 mg TIDWMEALS PO 12/01/20 08:00 12/02/20 16:12 DC 12/02/20 12:48 Sertraline HCl (Zoloft) 25 mg DAILY PO 12/01/20 09:00 12/02/20 16:00 DC 12/02/20 08:13 Sertraline HCl (Zoloft) 50 mg DAILY PO 12/04/20 09:00 12/02/20 16:00 DC Lorazepam (Ativan) 0.25 mg DAILY PO 12/04/20 09:00 12/06/20 21:00 DC 12/06/20 08:33 Nystatin (Nystop) 1 bryant BID TP 12/01/20 09:00 12/27/20 20:27 Sertraline HCl (Zoloft) 50 mg DAILY PO 12/03/20 09:00 12/02/20 16:10 DC Sertraline HCl (Zoloft) 25 mg DAILY PO 12/03/20 09:00 12/03/20 09:30 DC 12/03/20 07:46 Sertraline HCl (Zoloft) 50 mg DAILY PO 12/07/20 09:00 12/07/20 11:10 DC Quetiapine Fumarate (SEROquel) 25 mg 0900,1200 PO 12/03/20 09:00 12/07/20 11:10 DC 12/06/20 15:24 Quetiapine Fumarate (SEROquel) 50 mg 1700 PO 12/02/20 17:00 12/27/20 16:30 Sertraline HCl (Zoloft) 25 mg DAILY PO 12/04/20 09:00 12/06/20 21:00 DC 12/06/20 08:33 Sertraline HCl (Zoloft) 25 mg DAILY PO 12/07/20 09:00 Cancel Quetiapine Fumarate (SEROquel) 25 mg 1200 PO 12/07/20 12:00 12/27/20 12:11 Sertraline HCl (Zoloft) 75 mg DAILY PO 12/08/20 09:00 12/25/20 16:56 DC 12/25/20 08:18 Quetiapine Fumarate (SEROquel) 37.5 mg 0900 PO 12/08/20 09:00 12/27/20 08:15 Amlodipine Besylate (Norvasc) 5 mg DAILY PO 12/12/20 09:00 12/27/20 08:14 Quetiapine Fumarate (SEROquel) 25 mg PRN Q6HRS PRN PO agitation 12/14/20 17:00 12/15/20 23:11 Sertraline HCl (Zoloft) 100 mg DAILY PO 12/26/20 09:00 12/27/20 08:15 I have reviewed the current psychotropics carefully including drug interactions. Risk benefit ratio favors no change other than as noted in my dictated progress note. Diagnosis: Problems: (1) Impulse control disorder, unspecified (2) Anxiety disorder, unspecified (3) Major neurocognitive disorder (4) Dementia, vascular, with depression (5) Dementia, vascular, with delusions (6) Dementia in Alzheimer's disease with depression (7) Dementia in Alzheimer's disease with delusions (8) Dementia of the Alzheimer's type with early onset with behavioral disturbance MADHURI SHAW MD December 28, 2020 06:46
[2020-12-28 08:31] VITALS: BP 147/83
[2020-12-28] MEDS: MEMANTINE 10 MG TABLET. PO SCH (08:31)
[2020-12-28] MEDS: amLODIPine BESYLATE 5 MG TABLET PO SCH (08:31)
[2020-12-28] MEDS: SERTRALINE 100 MG TABLET. PO SCH (08:31)
[2020-12-28] MEDS: FUROSEMIDE 20 MG TABLET PO SCH (08:31)
[2020-12-28] MEDS: MULTIVITAMIN with MINERAL TABLET. PO SCH (08:31)
[2020-12-28] MEDS: busPIRone 10 MG TABLET. PO SCH (08:31)
[2020-12-28] MEDS: QUEtiapine 25 MG TABLET. PO SCH (08:32)
[2020-12-28] MEDS: NYSTATIN TOPICAL POWDER 15GM BOTTLE. TP SCH (08:33)
--- NOTE | 2020-12-28 22:10 | PDOC ---
Exam Note: Aki Note: Please also refer to the separate dictated note~for this date of service dictated separately.~Patient seen individually. Discussed the patient with Nursing staff reviewed the chart.~Reviewed interim history and current functioning. Reviewed vital signs,~Labs/ Radiology~and current medications noted below. Continue current treatment with the changes noted in the dictated addendum note Assessment: Vital Signs/I&O: Vital Signs Date Time Temp Pulse Resp B/P (MAP) Pulse Ox O2 Delivery O2 Flow Rate FiO2 12/28/20 08:31 63 147/83 12/28/20 06:10 97.5 18 96 Room Air I & O 12/27/20 12/27/20 12/28/20 15:00 23:00 07:00 Intake Total 480 ml 360 ml Balance 480 ml 360 ml Labs: Laboratory Tests Test 12/28/20 07:13 Glucose (Fingerstick) 167 mg/dL (70-99) H Current Medications: Meds: Laboratory Tests Test 12/28/20 07:13 Glucose (Fingerstick) 167 mg/dL Current Medications Medications (Trade) Dose Ordered Sig/Curt Route PRN Reason Start Time Stop Time Status Last Admin Dose Admin Acetaminophen (Tylenol) 650 mg PRN Q6HRS PRN PO MILD PAIN / TEMP > 100.3'F 11/29/20 18:00 12/28/20 11:21 DC Multi-Ingredient Ointment (Analgesic [place]) 1 bryant PRN QID PRN TP MUSCLE PAIN 11/29/20 18:00 12/28/20 11:21 DC Al Hydroxide/Mg Hydroxide (Mylanta Plus Xs) 15 ml PRN AFTMEALHC PRN PO DYSPEPSIA 11/29/20 18:00 12/28/20 11:21 DC Magnesium Hydroxide (Milk Of Magnesia) 2,400 mg PRN QHS PRN PO CONSTIPATION, 2ND CHOICE 11/29/20 18:00 12/28/20 11:21 DC 12/22/20 20:41 Bisacodyl (Dulcolax Supp) 10 mg PRN DAILY PRN RC CONSTIPATION, 3RD CHOICE 11/29/20 18:15 12/28/20 11:21 DC Buspirone HCl (Buspar) 10 mg TID PO 11/29/20 21:00 12/28/20 11:21 DC 12/28/20 08:31 Vitamin D (Vitamin D3) 50,000 unit QWE PO 12/06/20 16:00 12/28/20 11:21 DC 12/27/20 14:11 Donepezil HCl (Aricept) 10 mg QHS PO 11/29/20 21:00 12/28/20 11:21 DC 12/27/20 20:27 Furosemide (Lasix) 20 mg DAILY PO 11/30/20 09:00 12/28/20 11:21 DC 12/28/20 08:31 Lorazepam (Ativan) 0.5 mg BID PO 11/29/20 21:00 11/30/20 22:44 DC 11/30/20 20:22 Memantine (Namenda) 10 mg BID PO 11/29/20 21:00 12/28/20 11:21 DC 12/28/20 08:31 Sodium Biphosphate/ Sodium Phosphate (Fleet Adult) 133 ml PRN DAILY PRN RC CONSTIPATION, 4TH CHOICE 11/29/20 18:15 12/28/20 11:21 DC Polyethylene Glycol (miraLAX) 17 gm PRN DAILY PRN PO CONSTIPATION, 1ST CHOICE 11/29/20 18:15 12/28/20 11:21 DC Citalopram Hydrobromide (CeleXA) 20 mg DAILY PO 11/30/20 09:00 11/30/20 22:44 DC 11/30/20 12:32 Melatonin (Melatonin) 10.5 mg QHS PO 11/29/20 21:00 12/28/20 11:21 DC 12/27/20 20:28 Multivitamins/ Calcium (Thera-M Plus) 1 tab DAILY PO 11/30/20 09:00 12/28/20 11:21 DC 12/28/20 08:31 Lorazepam (Ativan) 0.25 mg BID PO 12/01/20 09:00 12/03/20 22:00 DC 12/03/20 20:16 Quetiapine Fumarate (SEROquel) 12.5 mg TIDWMEALS PO 12/01/20 08:00 12/02/20 16:12 DC 12/02/20 12:48 Sertraline HCl (Zoloft) 25 mg DAILY PO 12/01/20 09:00 12/02/20 16:00 DC 12/02/20 08:13 Sertraline HCl (Zoloft) 50 mg DAILY PO 12/04/20 09:00 12/02/20 16:00 DC Lorazepam (Ativan) 0.25 mg DAILY PO 12/04/20 09:00 12/06/20 21:00 DC 12/06/20 08:33 Nystatin (Nystop) 1 bryant BID TP 12/01/20 09:00 12/28/20 11:21 DC 12/28/20 08:33 Sertraline HCl (Zoloft) 50 mg DAILY PO 12/03/20 09:00 12/02/20 16:10 DC Sertraline HCl (Zoloft) 25 mg DAILY PO 12/03/20 09:00 12/03/20 09:30 DC 12/03/20 07:46 Sertraline HCl (Zoloft) 50 mg DAILY PO 12/07/20 09:00 12/07/20 11:10 DC Quetiapine Fumarate (SEROquel) 25 mg 0900,1200 PO 12/03/20 09:00 12/07/20 11:10 DC 12/06/20 15:24 Quetiapine Fumarate (SEROquel) 50 mg 1700 PO 12/02/20 17:00 12/28/20 11:21 DC 12/27/20 16:30 Sertraline HCl (Zoloft) 25 mg DAILY PO 12/04/20 09:00 12/06/20 21:00 DC 12/06/20 08:33 Sertraline HCl (Zoloft) 25 mg DAILY PO 12/07/20 09:00 Cancel Quetiapine Fumarate (SEROquel) 25 mg 1200 PO 12/07/20 12:00 12/28/20 11:21 DC 12/27/20 12:11 Sertraline HCl (Zoloft) 75 mg DAILY PO 12/08/20 09:00 12/25/20 16:56 DC 12/25/20 08:18 Quetiapine Fumarate (SEROquel) 37.5 mg 0900 PO 12/08/20 09:00 12/28/20 11:21 DC 12/28/20 08:32 Amlodipine Besylate (Norvasc) 5 mg DAILY PO 12/12/20 09:00 12/28/20 11:21 DC 5/27/21 08:31 Quetiapine Fumarate (SEROquel) 25 mg PRN Q6HRS PRN PO agitation 12/14/20 17:00 12/28/20 11:21 DC 12/15/20 23:11 Sertraline HCl (Zoloft) 100 mg DAILY PO 12/26/20 09:00 12/28/20 11:21 DC 12/28/20 08:31 I have reviewed the current psychotropics carefully including drug interactions. Risk benefit ratio favors no change other than as noted in my dictated progress note. Diagnosis: Problems: (1) Impulse control disorder, unspecified (2) Anxiety disorder, unspecified (3) Major neurocognitive disorder (4) Dementia, vascular, with depression (5) Dementia, vascular, with delusions (6) Dementia in Alzheimer's disease with depression (7) Dementia in Alzheimer's disease with delusions (8) Dementia of the Alzheimer's type with early onset with behavioral di sturbance MADHURI SHAW MD December 28, 2020 22:10
--- NOTE | 2020-12-28 23:35 | DS ---
DATE OF DISCHARGE: 12/28/2020 DISCHARGE SUMMARY AND PSYCHIATRIC PROGRESS NOTE This note covers elements not covered in the initial note, 12/28/2020, REASON FOR ADMISSION: Please refer to the admission history for details, but briefly, the patient is an 80-year-old female referred to us from [place], [place] by her primary care physician on account of worsening confusion, being combative with staff, demanding to go to the bank in the middle of the night. She was spitting, hitting and cursing at staff, had marked insomnia, incontinence. Reportedly, she removed her pants and brief at the nursing station. She was stealing food from other residents, asking other residents why they do not love her. She was demanding staff to give her their food and demanding staff to tell her how much they loved her. She is hard of hearing, which made communication even more difficult. Behaviors were deemed dangerous, unmanageable at the facility, resulting in this referral. SIGNIFICANT FINDINGS AND CLINICAL COURSE: Following admission, the patient was seen daily individually by myself from a psychiatric standpoint. Medical followup with Dr. Banks/Dr. Interiano. The patient remained confused, withdrawn, irritable, anxious and labile. Adjustments were made in her psychotropics and she seemed to respond to a combination of Aricept 10 mg at bedtime, Seroquel 37.5 mg at 0900, 25 mg at noon and 50 mg at 1700, 25 mg q. 6 hours p.r.n. psychosis, agitation, mood lability. Melatonin 10 mg at bedtime, Namenda 10 mg b.i.d., Zoloft 100 mg a day. REVIEW OF SYSTEMS: Prior to discharge on 12/28/2020, no CV, , pulmonary, eye system symptoms on review. Hard of hearing. MENTAL STATUS EXAM: Oriented to herself. Insight, judgment, recent and remote memory, attention, concentration, fund of knowledge poor consistent with her diagnosis. CONDITION ON DISCHARGE: Improved. FINAL DIAGNOSES: Major neurocognitive disorder, Alzheimer, vascular with delusion, depression, behavioral disturbance, anxiety disorder, unspecified; impulse control disorder, unspecified. Rest unchanged from admission. DISCHARGE MEDICATIONS: Please refer to the [facility]. DISCHARGE INSTRUCTIONS: Outpatient psychiatric and medical followup at the residential. Time for discharge day management greater than 30 minutes. BOONE/GEOFF DR: Arun TID: [id number]
== END 2020-12-28 11:00 | DRG 57 ==
LOC: GEROPSY 17:18
PROVIDERS: ADMIT Psychiatry & Neurology Psychiatry; ATTEND Psychiatry & Neurology Psychiatry
DX: G30.9 Alzheimer's disease, unspecified (principal); F02.81 Dementia in other diseases classified elsewhere, unspecified severity, with behavioral disturbance; F01.51 Vascular dementia, unspecified severity, with behavioral disturbance; E11.9 Type 2 diabetes mellitus without complications; F32.9 Major depressive disorder, single episode, unspecified; F41.9 Anxiety disorder, unspecified; F63.9 Impulse disorder, unspecified; G47.00 Insomnia, unspecified; H91.93 Unspecified hearing loss, bilateral; I10 Essential (primary) hypertension; M19.90 Unspecified osteoarthritis, unspecified site; M81.0 Age-related osteoporosis without current pathological fracture; Z66 Do not resuscitate; G47.9 Sleep disorder, unspecified; Z79.899 Other long term (current) drug therapy; Z85.3 Personal history of malignant neoplasm of breast; Z91.81 History of falling; D51.9 Vitamin B12 deficiency anemia, unspecified; Z20.822 Contact with and (suspected) exposure to COVID-19
CPT/HCPCS: 36415; 80053; 80061; 81001; 82306; 82607; 82947; 83036; 83540; 83550; 83735; 84436; 84443; 84480; 85025; 85379; 86592; 87086; 93005; U0003